=== PATIENT | male | born 1950 | race Caucasian/White ===

== ENCOUNTER 2017-10-29 15:48 | Observation (INO) ==
[2017-10-29] MEDS ORDERED: 0.9 % SODIUM CHLORIDE 1,000 ML IV ONE (16:01)
[2017-10-29] MEDS ORDERED: ASPIRIN 81 MG TAB.CHEW CHEWED ONE (16:20)
[2017-10-29 16:35] LABS: Basophils # (Auto) 0 K/mcL (0.0-0.3); Basophils % (Auto) 0.3 % (0.0-2.0); Eosinophils # (Auto) 0.1 K/mcL (0.0-0.7); Eosinophils % (Auto) 1.7 % (0.0-7.0); Granulocytes % (Auto) 70.2 % (38.0-78.0); Lymphocytes # (Auto) 1.4 K/mcL (1.5-4.8); Lymphocytes % (Auto) 19.9 % (15.5-49.0); Mean Cell Volume 94.9 fL (80.0-100.0); Mean Corpuscular HGB Conc 33.5 g/dL (31.0-36.0); Mean Corpuscular Hemoglobin 31.8 pg (26.0-34.0); Monocytes # (Auto) 0.5 K/mcL (0.1-0.9); Monocytes % (Auto) 7.9 % (1.0-12.0); Platelet Count 292 K/mcL (140-440); RBC 4.95 M/mcL (4.50-5.90); Red Cell Distribution Width 14.4 % (11.5-14.5)
--- NOTE | 2017-10-29 16:50 | XRay Report ---
HISTORY: Chest pain and shortness of breath FINDINGS: There is a small right apical pneumothorax which is roughly 10-15% volume. There is a new finding since 04/29/16. No pleural effusion is present. The lungs are clear without evidence of pneumonia or mass. The heart size, pulmonary vasculature, mediastinum and tamar are normal. Central airways appear normal. IMPRESSION: Small right apical pneumothorax Bry Negron was called with the results Interpreted and Authenticated by: Hector Conner 10/29/17
[2017-10-29 16:56] LABS: ALT/SGPT 16 U/l (0-40); Albumin 4.4 gm/dL (3.2-5.2); Albumin/Globulin Ratio 1.8 (1.0-2.3); Alkaline Phosphatase 64 U/L (39-117); Blood Urea Nitrogen 19 mg/dl (8-23)
[2017-10-29] MEDS ORDERED: HYDROcodone/APAP 5/325MG TABLET PO PRN (17:36)
[2017-10-29 17:41] LABS: Appearance,Urine CLEAR; Bacteria,Urine 0 /hpf (0); Bilirubin,Urine NEG (NEG); Color,Urine YELLOW; Glucose,Urine (UA) NEGATIVE (NEG); Leukocyte Esterase,Urine NEG /uL (NEG); Mucus,Urine FEW /hpf (0); Protein,Urine NEG (NEG); Specific Gravity,Urine 1.024 (1.000-1.035); Urine Blood NEG mg/dL (<0.03); Urine Hyaline Cast 1 /lpf (0-2); Urine RBC 1 /hpf (0-1); Urine Squamous Epithelial Cell 0 /hpf (0-4); Urine WBC < 1 /hpf (0-4)
--- NOTE | 2017-10-29 18:15 | Emergency Department Note ---
General Adult HPI - General Chief complaint: Flank Pain Stated complaint: R flank pain Time Seen by Provider: 10/29/17 15:54 Source: patient Mode of arrival: EMS Limitations: no limitations - History of Present Illness HPI Narrative: Patient is a 67-year-old male presented at the emergency Department today via ambulance after he experienced some right upper chest pain which radiated to the right lower ribs around 1500 today. He reports that he was sitting when this occurred. He has a history of COPD and reports that he was having a little bit more difficulty taking a deep breath than he normally does. He is also reporting increased pain with certain movements and deep breathing. - Related Data Home Medications Medication Instructions Recorded Confirmed Albuterol Sulfate [Ventolin] 1 puff INH Q4-6HP PRN 10/29/17 10/29/17 Levothyroxine Sodium [Synthroid] 112 mcg PO DAILY 10/29/17 10/29/17 Tamsulosin [Flomax] 0.4 mg PO HS 10/29/17 10/29/17 Previous Rx's Medication Instructions Recorded Diazepam [Valium] 5 mg PO TIDP PRN #15 tablet 07/20/16 Allergies Allergy/AdvReac Type Severity Reaction Status Date / Time Tetracycline [TETRACYCLINE] AdvReac Mild SEVERE Verified 02/05/17 08:11 HEARTBURN Past Medical History - Past Medical History Medical history: Reports: no medical history Surgical history ED: Reports: herniorrhaphy, orthopedic, other (Right shoulder) - Social History smoking status: Former smoker Physical Exam Limitations: no limitations General appearance: alert, in no apparent distress ENT: normal oropharynx, mucous membranes moist Neck: Present: normal inspection, full ROM, trachea midline. Absent: lymphadenopathy Chest: Present: normal inspection, symmetric chest wall rise. Absent: tenderness Respiratory: Present: other (lung sounds clear to auscultate with slightly diminished base in the right lower lobe and diminished right upper lobe). Absent: respiratory distress, accessory muscle use Cardiovascular: Present: regular rate, normal rhythm, +S1, +S2. Absent: systolic murmur, diastolic murmur Abdominal: Present: soft, normal bowel sounds. Absent: distention, tenderness Extremities: Present: normal inspection, full ROM, normal capillary refill. Absent: tenderness Back: Present: normal inspection. Absent: tenderness, CVA tenderness (R), CVA tenderness (L) Neurological: Present: alert, oriented X3 Psychiatric: Present: normal affect, normal mood Skin: Present: warm, dry, intact, normal color Course Vital Signs Temperature 97.4 F 10/29/17 15:52 Pulse Rate 73 10/29/17 15:52 Respiratory Rate 20 10/29/17 15:52 Blood Pressure 141/81 10/29/17 15:52 Pulse Oximetry (%) 90 10/29/17 15:52 Temperature 97.4 F 10/29/17 18:21 Pulse Rate 61 10/29/17 18:21 Respiratory Rate 16 10/29/17 18:21 Blood Pressure 115/79 10/29/17 18:21 Pulse Oximetry (%) 93 10/29/17 19:30 Medical Decision Making - MDM Narrative Medical decision making narrative: Patient's pain was controlled here in the emergency department and his vital signs are stable. Phone call was received from radiologist which the Two-view chest x-ray shows small right apical pneumothorax which is roughly 10-15% volume. Patient was stable maintaining O2 saturations around 92% on room air. His labs are remarkably well. Phone call was placed and report given to Dr. Franklin Peralta. Patient will be admitted for observation incentive spirometer every 2 hours, O2 2 L via nasal cannula, he'll be given pain medication, saline lock IV, and chest x-ray in the morning. Dr. Franklin Peralta will follow up with patient. - Lab Data Lab results reviewed: Yes I reviewed the patient's lab results. Result diagrams: 10/29/17 16:13 10/29/17 16:13 Lab Results 10/29/17 10/29/17 10/29/17 Range/Units 16:12 16:13 16:13 WBC 6.8 (4.5-11.0) K/mcL RBC 4.95 (4.50-5.90) M/mcL Hgb 15.8 (13.5-16.5) g/dL Hct 47.0 (41.0-55.0) % MCV 94.9 (80.0-100.0) fL MCH 31.8 (26.0-34.0) pg MCHC 33.5 (31.0-36.0) g/dL RDW 14.4 (11.5-14.5) % Plt Count 292 (140-440) K/mcL MPV 6.8 L (7.4-10.4) fL Gran % 70.2 (38.0-78.0) % Lymph % (Auto) 19.9 (15.5-49.0) % [place] % (Auto) 7.9 (1.0-12.0) % Eos % (Auto) 1.7 (0.0-7.0) % Baso % (Auto) 0.3 (0.0-2.0) % Gran # 4.8 (1.8-8.0) K/mcL Lymph # (Auto) 1.4 L (1.5-4.8) K/mcL [place] # (Auto) 0.5 (0.1-0.9) K/mcL Eos # (Auto) 0.1 (0.0-0.7) K/mcL Baso # (Auto) 0 (0.0-0.3) K/mcL D-Dimer (0.00-0.40) ug/ml Sodium 141 (133-145) mmol/L Potassium 4.2 (3.3-5.1) mmol/L Chloride 102 (96-108) mmol/L Carbon Dioxide 27 (22-30) mmol/L Anion Gap 12.0 (8-16) BUN 19 (8-23) mg/dl Creatinine 1.0 (0.7-1.2) mg/dl GFR Calculation 78 Glucose 102 (70-105) mg/dL Calcium 9.4 (8.6-10.4) mg/dl Total Bilirubin 0.3 (0.0-1.0) mg/dL AST 22 (0-37) U/l ALT 16 (0-40) U/l Alkaline Phosphatase 64 (39-117) U/L Troponin T < 0.01 (0-0.03) ng/ml Total Protein 6.9 (5.9-8.4) gm/dL Albumin 4.4 (3.2-5.2) gm/dL Globulin 2.5 (2.2-3.7) gm/dL Albumin/Globulin Ratio 1.8 (1.0-2.3) Procalcitonin (<0.10) ng/mL Urine Color Urine Appearance Urine pH (5.0-9.0) Ur Specific [place] (1.000-1.035) Urine Protein (NEG) mg/dL Urine Glucose (UA) (NEG) mg/dL Urine Ketones (NEG) mg/dL Urine Occult Blood (<0.03) mg/dL Urine Nitrate (NEG) Urine Bilirubin (NEG) mg/dL Urine Urobilinogen (NEG) mg/dL Ur Leukocyte Esterase (NEG) /uL Urine RBC (0-1) /hpf Urine WBC (0-4) /hpf Ur Squamous Epith Cells (0-4) /hpf Urine Bacteria (0) /hpf Hyaline Casts (0-2) /lpf Urine Mucus (0) /hpf Ur Culture Indicated? 10/29/17 10/29/17 10/29/17 Range/Units 16:13 16:21 17:10 WBC (4.5-11.0) K/mcL RBC (4.50-5.90) M/mcL Hgb (13.5-16.5) g/dL Hct (41.0-55.0) % MCV (80.0-100.0) fL MCH (26.0-34.0) pg MCHC (31.0-36.0) g/dL RDW (11.5-14.5) % Plt Count (140-440) K/mcL MPV (7.4-10.4) fL Gran % (38.0-78.0) % Lymph % (Auto) (15.5-49.0) % [place] % (Auto) (1.0-12.0) % Eos % (Auto) (0.0-7.0) % Baso % (Auto) (0.0-2.0) % Gran # (1.8-8.0) K/mcL Lymph # (Auto) (1.5-4.8) K/mcL [place] # (Auto) (0.1-0.9) K/mcL Eos # (Auto) (0.0-0.7) K/mcL Baso # (Auto) (0.0-0.3) K/mcL D-Dimer 0.54 H (0.00-0.40) ug/ml Sodium (133-145) mmol/L Potassium (3.3-5.1) mmol/L Chloride (96-108) mmol/L Carbon Dioxide (22-30) mmol/L Anion Gap (8-16) BUN (8-23) mg/dl Creatinine (0.7-1.2) mg/dl GFR Calculation Glucose (70-105) mg/dL Calcium (8.6-10.4) mg/dl Total Bilirubin (0.0-1.0) mg/dL AST (0-37) U/l ALT (0-40) U/l Alkaline Phosphatase (39-117) U/L Troponin T (0-0.03) ng/ml Total Protein (5.9-8.4) gm/dL Albumin (3.2-5.2) gm/dL Globulin (2.2-3.7) gm/dL Albumin/Globulin Ratio (1.0-2.3) Procalcitonin < 0.05 (<0.10) ng/mL Urine Color Yellow Urine Appearance Clear Urine pH 5.0 (5.0-9.0) Ur Specific [place] 1.024 (1.000-1.035) Urine Protein Neg (NEG) mg/dL Urine Glucose (UA) Negative (NEG) mg/dL Urine Ketones Neg (NEG) mg/dL Urine Occult Blood Neg (<0.03) mg/dL Urine Nitrate Neg (NEG) Urine Bilirubin Neg (NEG) mg/dL Urine Urobilinogen 2.0 A (NEG) mg/dL Ur Leukocyte Esterase Neg (NEG) /uL Urine RBC 1 (0-1) /hpf Urine WBC < 1 (0-4) /hpf Ur Squamous Epith Cells 0 (0-4) /hpf Urine Bacteria 0 (0) /hpf Hyaline Casts 1 (0-2) /lpf Urine Mucus Few (0) /hpf Ur Culture Indicated? No - Radiology Data Radiology results reviewed: Yes I reviewed the patient's radiology results. - EKG Data EKG #1 EKG results narrative: EKG reviewed by myself and interpreted by Dr. Ibrahim. Normal sinus rhythm with slight first-degree AV block seen. No acute abnormalities. Disposition Pt seen by MINE [employer]INEER[employer] SUPERVISOR/PA only: Yes Clinical Impression: Pneumothorax Disposition: Xfer As Outpt/Obs ([facility]) Condition: Fair
[2017-10-29] MEDS ORDERED: LIDOCAINE 1% 20 ML VIAL SQ ONE (18:26)
--- NOTE | 2017-10-29 19:30 | General Surg History&Physical ---
History of Present Illness Patient information: Note initiated : 10/29/17 at 7:28 pm Service Date, if different from initiated Date: [] Patient: Nikhil Campbell a 67 y/o M admitted on 10/29/17 for R flank pain. Chief Complaint: [] HPI: Mr. Campbell is a 67 year old M admitted for observation for small apical pneumothorax On the right side. The patient had acute onset of right-sided back pain about 3:00 today. He was sitting at the time.. This pain was followed by right lateral chest pain and then anterior chest. He later had difficulty taking a deep breath.. He also had pain with any movement. He was seen in the emergency room where he he has a very limited apical pneumothorax which measures between 10-15%. He feels better now and is admitted for observation.. If his pneumothorax should increase we will proceed with tube thoracostomy. If it remains stable he will be discharged home after about 36 hours if he is asymptomatic.. Review of Systems - Genitourinary change in urinary stream, difficulty urinating, urinary frequency, urinary urgency - Musculoskeletal arthralgias, back pain Past History Past medical history: Chronic obstructive lung disease Chronic bronchitis Hypothyroidism BPH Chronic low back pain Past surgical history: Left AC joint repair Left inguinal hernia repair Nasal surgery Removal of multiple skin cancers Past family history: Father of colon cancer complications H unknown Mother of lung cancer age 86 Brother of advanced squamous cell cancer from the skin Past social history: Greater than [id number] smoking history stopped 11-3 beers per day No drug use Medications and Allergies Home Medications Medication Instructions Recorded Confirmed Type Diazepam [Valium] 5 mg PO TIDP PRN #15 tablet 07/20/16 10/29/17 Rx Albuterol Sulfate [Ventolin] 1 puff INH Q4-6HP PRN 10/29/17 10/29/17 History Levothyroxine Sodium [Synthroid] 112 mcg PO DAILY 10/29/17 10/29/17 History Tamsulosin [Flomax] 0.4 mg PO HS 10/29/17 10/29/17 History Allergies Allergy/AdvReac Type Severity Reaction Status Date / Time Tetracycline [TETRACYCLINE] AdvReac Mild SEVERE Verified 02/05/17 08:11 HEARTBURN Exam Temp Pulse Resp BP Pulse Ox 97.4 F 61 16 115/79 94 10/29/17 18:21 10/29/17 18:21 10/29/17 18:21 10/29/17 18:21 10/29/17 18:21 - General physical appearance well developed, well nourished, no distress - Eyes PERRL, normal ocular movement - ENT normal pinna, normal nares, normal mucosa, no hearing loss, no congestion - Head Head exam IM: Present: atraumatic, normocephalic - Neck no masses, no bruits, trachea midline, no lymphadectomy, no venous distension - Cardiovascular Cardiovascular exam IM: Present: normal rate and rhythm, RRR, +S1, +S2. Absent : JVD, rubs, tachycardia - Respiratory normal expansion, normal respiratory effort, clear to auscultation, other (good breath sounds except at apex right lung;;; no pleural rub) - Abdomen Abdomen: Present: soft, non tender, bowel sounds Hernia: Present: none - Genitourinary Present: normal penis with no external lesions - Integumentary Present: no rash, no growths, no abnormal pigmentation - Neurologic Present: normal coordination, normal sensation - Musculoskeletal Present: normal gait, normal posture - Psychiatric Present: oriented to time, oriented to person, oriented to place, speech is normal, memory intact Assessment and Plan (1) Primary spontaneous pneumothorax Patient will be monitored and will have follow-up chest x-ray in the morning.. If the pneumothorax increases he will get either a Pleurx tube or standard [place] chest tube based on the size of the pneumothorax. If he remains stable he will be discharged home with follow-up as An outpatient. Status: Acute (2) Chronic obstructive lung disease Status: Acute
[2017-10-29] MEDS ORDERED: ACETAMINOPHEN 1,000 MG/100 ML BOTTLE IV PRN (19:36)
[2017-10-29] MEDS ORDERED: HYDROmorphone 2 MG/ML VIAL IV PRN (19:36)
[2017-10-30] MEDS: 0.9 % SODIUM CHLORIDE 10 ML SYRINGE IV SCH ×3 (04:58→21:21)
--- NOTE | 2017-10-30 08:47 | XRay Report ---
HISTORY: Follow-up right-sided pneumothorax FINDINGS: There is an enlarging right-sided pneumothorax. There is free air at the apex and at the right costophrenic sulcus. This has increased in volume since yesterday. This is now roughly 30% in volume. Bands of atelectasis are developing laterally in the right lung base. No pleural fluid is seen. The left lung is clear. No mediastinal shift is present. The heart size is normal. IMPRESSION: Enlarging right-sided pneumothorax Interpreted and Authenticated by: Hector Conner 10/30/17
--- NOTE | 2017-10-30 11:12 | XRay Report ---
HISTORY: Enlarging spontaneous pneumothorax Technique: The procedure risks were explained and the patient consented. The skin over the right upper chest wall was prepped with ChloraPrep and then anesthetized with 1% lidocaine. A small incision was made. Using trocar technique a Cortes chest tube was inserted. 1 L of air was evacuated from the pleural space. The catheter was secured to the skin surface with suture. The catheter was then connected to a one-way valve which was taped to the skin surface. He tolerated the procedure well without complication. 17 seconds of fluoroscopy time was used. IMPRESSION: Successful placement of a small-caliber chest tube into the right upper thorax, with near complete evacuation of the air from the pleural space Interpreted and Authenticated by: Hector Conner 10/30/17
--- NOTE | 2017-10-30 11:13 | XRay Report ---
HISTORY: Post right-sided chest tube insertion for pneumothorax FINDINGS: There is a tiny residual right apical pneumothorax which is less than 5% volume. The pigtail Cortes chest tube is located laterally in the right upper thorax. There are bands of discoid atelectasis above the right diaphragm and there is minor blunting of the right costophrenic sulcus. Left lung is clear. The heart size is normal. IMPRESSION: Near complete evacuation of the right-sided pneumothorax following chest tube insertion Interpreted and Authenticated by: Hector Conner 10/30/17
--- NOTE | 2017-10-30 14:41 | General Surgery Progress Note ---
Subjective Patient reports: still having pain, tolerating a regular diet, flatus, bowel movement, shortness of breath, afebrile Narrative: Note initiated : 10/30/17 at 2:39 pm Service Date, if different from initiated Date: [] Patient: Nikhil Campbell 67 y/o M admitted on 10/29/17 for R flank pain. Chief Complaint: [patient has been stable overnight but his chest x-ray showed increase in the apical pneumothorax and also development of an area at the right base. Discussed with Dr. Conner about placing a Pleurx catheter. This was placed and he was attached to a Heimlich valve.. He now has a residual of about 5% at the apex.. We'll keep the patient overnight and get follow-up x-ray in the morning..] Objective Temp Pulse Resp BP Pulse Ox 98.2 F 56 L 20 128/80 93 10/30/17 11:12 10/30/17 12:52 10/30/17 12:52 10/30/17 11:12 10/30/17 12:52 - Additional Data Intake & Output - Last 24 hours: Intake & Output 10/28/17 10/29/17 10/30/17 10/31/17 05:59 05:59 05:59 05:59 Intake Total 1237 / 1237 200 / 200 Output Total 500 / 500 1025 / 1025 Balance 737 / 737 -825 / -825 Weight 165 lb - General physical appearance moderate distress, moderate pain - Eyes PERRL, normal ocular movement - ENT normal pinna, normal nares, normal mucosa, no hearing loss, no congestion - Neck no masses, no bruits, trachea midline, no venous distension - Respiratory other (good clear breath sounds bilaterally; no pleural rub; no rhonchi or wheezes) - Cardiovascular Cardiovascular exam: Present: normal rate and rhythm, RRR, +S1, +S2. Absent: JVD, tachycardia - Abdomen non tender, bowel sounds (present), surgical scars (none), masses (none) - Integumentary no rash, no growths, no abnormal pigmentation - Neurologic normal coordination, normal sensation - Musculoskeletal normal gait, normal posture - Psychiatric oriented to time, oriented to person, oriented to place, speech is normal, memory intact - Labs 10/29/17 16:13 10/29/17 16:13 Diabetes panel 10/29/17 Range/Units 16:13 Sodium 141 (133-145) mmol/L Potassium 4.2 (3.3-5.1) mmol/L Chloride 102 (96-108) mmol/L Carbon Dioxide 27 (22-30) mmol/L BUN 19 (8-23) mg/dl Creatinine 1.0 (0.7-1.2) mg/dl Glucose 102 (70-105) mg/dL Calcium 9.4 (8.6-10.4) mg/dl AST 22 (0-37) U/l ALT 16 (0-40) U/l Alkaline Phosphatase 64 (39-117) U/L Total Protein 6.9 (5.9-8.4) gm/dL Albumin 4.4 (3.2-5.2) gm/dL Calcium panel 10/29/17 Range/Units 16:13 Calcium 9.4 (8.6-10.4) mg/dl Albumin 4.4 (3.2-5.2) gm/dL Pituitary panel 10/29/17 Range/Units 16:13 Sodium 141 (133-145) mmol/L Potassium 4.2 (3.3-5.1) mmol/L Chloride 102 (96-108) mmol/L Carbon Dioxide 27 (22-30) mmol/L BUN 19 (8-23) mg/dl Creatinine 1.0 (0.7-1.2) mg/dl Glucose 102 (70-105) mg/dL Calcium 9.4 (8.6-10.4) mg/dl Adrenal panel 10/29/17 Range/Units 16:13 Sodium 141 (133-145) mmol/L Potassium 4.2 (3.3-5.1) mmol/L Chloride 102 (96-108) mmol/L Carbon Dioxide 27 (22-30) mmol/L BUN 19 (8-23) mg/dl Creatinine 1.0 (0.7-1.2) mg/dl Glucose 102 (70-105) mg/dL Calcium 9.4 (8.6-10.4) mg/dl Total Bilirubin 0.3 (0.0-1.0) mg/dL AST 22 (0-37) U/l ALT 16 (0-40) U/l Alkaline Phosphatase 64 (39-117) U/L Total Protein 6.9 (5.9-8.4) gm/dL Albumin 4.4 (3.2-5.2) gm/dL Assessment and Plan (1) Primary spontaneous pneumothorax Status: Acute Assessment and plan: Status post placement of Pleurx catheter for evacuation of pneumothorax; clinically improved Current Visit: Yes (2) Chronic obstructive lung disease Status: Acute Assessment and plan: Oxygenation is stable Current Visit: Yes - Time Spent With Patient Total time spent is greater than 50% in coordination of care (as documented) at patient's floor/unit and/or counseling patient:
[2017-10-30] MEDS ORDERED: ALBUTEROL SULFATE 1 PUFF INHALER INH PRN (14:43)
[2017-10-30] MEDS ORDERED: DIAZEPAM 5 MG TABLET PO PRN (14:43)
[2017-10-30] MEDS: TAMSULOSIN 0.4 MG CAPSULE PO SCH (21:06)
[2017-10-30] MEDS ORDERED: oxyCODONE/APAP 10/325MG TABLET PO ONE (21:10)
[2017-10-31] MEDS: 0.9 % SODIUM CHLORIDE 10 ML SYRINGE IV SCH ×3 (06:11→22:01)
[2017-10-31] MEDS: LEVOTHYROXINE SODIUM 112 MCG TABLET PO SCH (06:42)
--- NOTE | 2017-10-31 14:25 | General Surgery Progress Note ---
Subjective Patient reports: still having pain, shortness of breath, afebrile Narrative: Note initiated : 10/31/17 at 2:23 pm Service Date, if different from initiated Date: [] Patient: Nikhil Campbell 67 y/o M admitted on 10/29/17 for R flank pain. Chief Complaint: [patient is having chest wall pain and the catheter site. His O2 sats are about 87% on room air. Chest x-ray shows resolution of pneumothorax.] Objective Temp Pulse Resp BP Pulse Ox 97.5 F 54 L 18 104/64 91 10/31/17 11:30 10/31/17 11:30 10/31/17 11:30 10/31/17 11:30 10/31/17 13:24 - Additional Data Intake & Output - Last 24 hours: Intake & Output 10/29/17 10/30/17 10/31/17 11/01/17 05:59 05:59 05:59 05:59 Intake Total 1237 / 1237 725 / 725 Output Total 500 / 500 2550 / 2550 725 / 725 Balance 737 / 737 -1825 / -1825 -725 / -725 Weight 165 lb 166 lb 6.4 oz - General physical appearance well developed, well nourished, moderate distress, moderate pain - Eyes PERRL, normal ocular movement - ENT normal pinna, normal nares, normal mucosa, no hearing loss, no congestion - Neck no masses, no bruits, trachea midline, no lymphadectomy, no venous distension - Respiratory other (bilateral expiratory wheezes with scattered rhonchi) - Cardiovascular Cardiovascular exam: Present: normal rate and rhythm, RRR, +S1, +S2. Absent: JVD, tachycardia - Abdomen non tender, bowel sounds (present), surgical scars (none), masses (none) - Integumentary no rash, no growths, no abnormal pigmentation - Neurologic normal coordination, normal sensation - Musculoskeletal normal gait, normal posture - Psychiatric oriented to time, oriented to person, oriented to place, speech is normal, memory intact - Labs 10/29/17 16:13 10/29/17 16:13 Assessment and Plan (1) Primary spontaneous pneumothorax Status: Acute Assessment and plan: Status post placement of Pleurx catheter for evacuation of pneumothorax; clinically improved Current Visit: Yes (2) Chronic obstructive lung disease Status: Acute Assessment and plan: Oxygenation is stable We'll add DuoNeb every 6 hours Current Visit: Yes - Time Spent With Patient Total time spent is greater than 50% in coordination of care (as documented) at patient's floor/unit and/or counseling patient:
[2017-10-31] MEDS: IPRATROPIUM/ALBUTEROL 3 ML AMPUL.NEB NEB SCH ×2 (14:58→18:30)
[2017-10-31] MEDS: oxyCODONE/APAP 10/325MG TABLET PO PRN ×2 (15:28→19:49)
--- NOTE | 2017-10-31 15:28 | XRay Report ---
HISTORY: Follow-up right-sided pneumothorax following chest tube insertion FINDINGS: There is a residual small right apical pneumothorax which is roughly 5% volume. The chest tube remains positioned laterally in the right upper thorax adjacent to the pneumothorax. No mediastinal shift is present. The diaphragms are outside the field of view. Visualized lungs are clear. The heart size is normal. IMPRESSION: Persistent small right apical pneumothorax. Follow-up chest x-ray on 11/01/17 is suggested. Interpreted and Authenticated by: Hector Conner 10/31/17
[2017-10-31] MEDS ORDERED: FLEETS ADULT ENEMA PR PRN (16:20)
[2017-10-31] MEDS ORDERED: MAGNESIUM HYDROXIDE 30 ML ORAL.SUSP PO PRN (16:20)
[2017-10-31] MEDS ORDERED: BISACODYL 10 MG SUPP.RECT PR PRN (16:20)
[2017-10-31] MEDS ORDERED: MAGNESIUM HYDROXIDE 30 ML ORAL.SUSP ONE (17:22)
[2017-10-31] MEDS: DOCUSATE SODIUM 100 MG CAPSULE PO SCH (22:00)
[2017-10-31] MEDS: TAMSULOSIN 0.4 MG CAPSULE PO SCH (22:00)
[2017-11-01] MEDS: IPRATROPIUM/ALBUTEROL 3 ML AMPUL.NEB NEB SCH ×2 (00:54→07:50)
[2017-11-01] MEDS: oxyCODONE/APAP 10/325MG TABLET PO PRN ×2 (01:00→09:01)
[2017-11-01] MEDS: 0.9 % SODIUM CHLORIDE 10 ML SYRINGE IV SCH (04:26)
[2017-11-01] MEDS: LEVOTHYROXINE SODIUM 112 MCG TABLET PO SCH (07:01)
[2017-11-01] MEDS: DOCUSATE SODIUM 100 MG CAPSULE PO SCH (08:30)
--- NOTE | 2017-11-01 08:37 | XRay Report ---
HISTORY: Follow-up spontaneous right-sided pneumothorax FINDINGS: There is a tiny residual right apical pneumothorax. This has nearly but not completely resolved since yesterday. Chest tube remains well-positioned laterally in the right upper thorax. There is minor parenchymal scarring right upper lobe and medially in left lower lobe. The heart size, pulmonary vasculature, mediastinum, tamar and pleura are normal. IMPRESSION: Near complete resolution of the right apical pneumothorax. Follow-up chest x-ray tomorrow is recommended. If the patient is clinically stable, he could be discharged and return as an outpatient for follow-up. Interpreted and Authenticated by: Hector Conner 11/01/17
--- NOTE | 2017-11-01 12:19 | Discharge Summary ---
Providers - Providers Patient information: Note initiated : 11/01/17 at 12:16 pm Service Date, if different from initiated Date: [] Patient: Nikhil Campbell 67 y/o M admitted on 10/29/17 for R flank pain. Chief Complaint: [] Date of admission: 10/29/17 Discharge date: 11/01/17 Attending physician: Maria Victoria Peralta Hospitalization Hospital course: 67-year-old male who presents with a one-day history of right-sided chest pain with finding of right apical pneumothorax. His pneumothorax was about 10% and he was monitored overnight without a chest tube. The next morning the pneumothorax was about 20-25%. A Pleurx percutaneous tube with Heimlich valve was placed. The follow-up x-rays show a residual apical pneumothorax of about 5 %. The patient is asymptomatic except for chest pain. He will be discharged home and have follow-up x-rays as an outpatient until his pneumothorax has resolved.. The tube within the discontinued by the radiologist who inserted. The patient did not have any other problems during this hospitalization. He does have COPD and has mild hypoxemia however his O2 sats are 92-94% on room air at this time. Discharge diagnosis: sspontaneous pneumothorax right chest Secondary discharge diagnosis: Chronic obstructive lung disease Reason for admission: pneumothorax and right-sided chest pain Procedures: Percutaneous closed tube thoracostomy by radiology Pertinent studies/significant findings: None Complications: None Exam Temp Pulse Resp BP Pulse Ox 98 F 64 20 95/60 90 11/01/17 11:55 11/01/17 10:38 11/01/17 11:55 11/01/17 11:55 11/01/17 11:55 - General physical appearance well developed, well nourished, no distress - Eyes PERRL, normal ocular movement - ENT normal pinna, normal nares, normal mucosa, no hearing loss, no congestion - Head Head exam IM: Present: atraumatic, normocephalic - Neck no masses, no bruits, trachea midline, no lymphadectomy, no venous distension - Cardiovascular Cardiovascular exam IM: Present: normal rate and rhythm - Respiratory normal expansion, normal respiratory effort, clear to percussion, clear to auscultation - Abdomen Abdomen: Present: soft, non tender, bowel sounds Hernia: Present: none - Integumentary Present: no rash, no growths, no abnormal pigmentation - Neurologic Present: normal coordination, normal sensation - Musculoskeletal Present: normal gait, normal posture - Psychiatric Present: oriented to time, oriented to person, oriented to place, speech is normal, memory intact Discharge Plan - Patient/Caregiver Discharge Instructions Activity: increase activity as tolerated Diet: Regular Diet Additional Instructions: Follow-up chest x-ray had been tomorrow. The radiologist will decide when the catheter needs to be removed. Prescriptions: oxyCODONE/APAP [Percocet 10-325Mg] 1 tab PO Q4HP PRN #30 tab PRN Reason: Pain Level 3-6 - Follow up Plan Follow up with: Arturo Martinez MD [Primary Care Provider] - Disposition: Home, Self-Care Prognosis: Good Rehab Potential: Good I certify that the patient requires SNF services.: No Overall status at discharge: patient is not back to baseline Pending Studies Resuscitation Status Full Code Diet Low Sodium Diet (2gm) Start Irene Oct 29 1737 Albuterol Sulfate (Ventolin) 2 puff INH Q4-6HP PRN PRN Reason: Shortness Of Breath Last Admin: 11/01/17 08:08 Dose: 2 puff Albuterol/Ipratropium (Duoneb) 3 ml NEB Q6HRT [facility] Last Admin: 11/01/17 07:50 Dose: 3 ml Admin: 11/01/17 00:54 Dose: 3 ml Admin: 10/31/17 18:30 Dose: 3 ml Admin: 10/31/17 14:58 Dose: 3 ml Diazepam (Valium) 5 mg PO TIDP PRN PRN Reason: Muscle Spasm Last Admin: 10/30/17 21:07 Dose: 5 mg Docusate Sodium (Colace) 100 mg PO BID [facility] Last Admin: 11/01/17 08:30 Dose: 100 mg Admin: 10/31/17 22:00 Dose: 100 mg Levothyroxine Sodium (Synthroid) 112 mcg PO ACB [facility] Last Admin: 11/01/17 07:01 Dose: 112 mcg Admin: 10/31/17 06:42 Dose: 112 mcg Magnesium Hydroxide (Milk Of Magnesia) 30 ml PO DAILYP PRN PRN Reason: Constipation Last Admin: 11/01/17 07:01 Dose: 30 ml Oxycodone/Acetaminophen (Percocet 10-325mg) 1 tab PO Q4HP PRN PRN Reason: PAIN LEVEL 3-6 Last Admin: 11/01/17 09:01 Dose: 1 tab Admin: 11/01/17 01:00 Dose: 1 tab Admin: 10/31/17 19:49 Dose: 1 tab Admin: 10/31/17 15:28 Dose: 1 tab Sodium Chloride (Saline Flush) 10 ml IV Q8 DEON Last Admin: 11/01/17 04:26 Dose: 10 ml Admin: 10/31/17 22:01 Dose: 10 ml Admin: 10/31/17 14:45 Dose: 10 ml Admin: 10/31/17 06:11 Dose: 10 ml Admin: 10/30/17 21:21 Dose: 10 ml Admin: 10/30/17 13:24 Dose: 10 ml Admin: 10/30/17 04:58 Dose: 10 ml Tamsulosin HCl (Flomax) 0.4 mg PO HS DEON Last Admin: 10/31/17 22:00 Dose: 0.4 mg Admin: 10/30/17 21:06 Dose: 0.4 mg Shift Summary 11/01/17 05:21 Shift Summary by Lucero Aleman on 2L NC at NOC. A&Ox4. Medicated with 10-325 PO Percocet x 2 this shift for right chest pain r/t chest tube and to encourage ambulation/deep breathing. Chest tube dressing C/D/I. Small amount of serosanguineous drainage in chest tube extension tubing. No SOB or increased difficulty breathing. Up with SBA to bathroom. IV to left hand SL. Initialized on 11/01/17 05:21 - END OF NOTE
== END 2017-11-01 13:04 | disposition home or self-care (01) ==
LOC: MEDSUR 15:48 → ED 15:48 → MEDSUR 18:23
PROVIDERS: ADMIT Family Medicine Adult Medicine; ATTEND Family Medicine Adult Medicine

== ENCOUNTER 2019-10-17 17:35 | Observation (INO) ==
[2019-10-17] MEDS ORDERED: IOPAMIDOL 100 ML BOTTLE IV ONE (17:36)
--- NOTE | 2019-10-17 17:59 | Emergency Department Note ---
Neuro HPI General Chief Complaint: Neuro Symptoms/Deficit Stated Complaint: vision loss Time Seen by Provider: 10/17/19 17:54 Source: patient Mode of arrival: ambulatory Limitations: no limitations History of Present Illness HPI Narrative: Narrative: This patient has had 2 episodes of right amaurosis fugax this afternoon. 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 He is asymptomatic at the current time. He has never had a stroke or heart attack. Has had no other neurologic symptoms. Related Data Home Medications Medication Instructions Recorded Confirmed albuterol sulfate 2 puff INH Q4-6HP PRN 10/29/17 10/17/19 levothyroxine 112 mcg PO DAILY 10/29/17 10/17/19 diazepam 5 mg tablet 5 mg PO TID PRN tab 08/23/19 10/17/19 oxybutynin chloride 5 mg 5 mg PO QDAY tab 08/23/19 10/17/19 tablet,extended release 24 hr Multi Vitamin 1 tab PO DAILY 10/17/19 10/17/19 Vitamin D3 2,000 mg PO DAILY 10/17/19 10/17/19 Previous Rx's Medication Instructions Recorded forfhwddosbjfyg-vqqyinolbljfwbi-IP 10 ml PO Q8H PRN #120 ml 04/21/19 2 mg-30 mg-10 mg/5 mL oral syrup fluticasone propionate 50 2 spray INTRANASAL QDAY #15.8 ml 04/21/19 mcg/actuation nasal spray,suspension tiotropium 2.5 mcg-olodaterol 2.5 2 puff INHALATION Q24H #4 g 09/21/19 mcg/actuation mist for inhalation tamsulosin 0.4 mg capsule 0.8 mg PO QHS #180 cap 09/22/19 Allergies Allergy/AdvReac Type Severity Reaction Status Date / Time Influenza Virus Vaccines Allergy Severe pneumonia Verified 10/17/19 18:29 Pneumococcal Vaccine Allergy Intermediate Redness of Verified 10/17/19 18:29 Skin tetracycline [TETRACYCLINE] AdvReac Mild SEVERE Verified 10/17/19 18:29 HEARTBURN Review of Systems ROS ROS Narrative: Narrative: All systems ED: reviewed and negative except as stated. PFSH Narrative Patient History Narrative: Narrative: Medical/Surgical/Family History All Active Problems (Updated 10/17/19 @ 20:39 by Javi Blandon MD) Brain TIA (Acute) Amaurosis fugax (Acute) History of colonoscopy (Chronic ~2019) Colon polyps (Chronic) Collapsed lung (Chronic ~2018) Joint pain (Chronic) Skin cancer (Chronic) Family history of malignant neoplasm of digestive organs (Chronic) Family history of ischemic heart disease (Chronic) Urinary retention (Chronic) Maxillary sinusitis, acute (Chronic) Upper respiratory infection (Chronic) Persistent cough for 3 weeks or longer (Chronic) Encounter for general adult medical examination with abnormal findings (Chronic) Hx of measles (Chronic) Hay fever (Chronic) Hypertension (Chronic) Constipation (Chronic) Allergy to vaccine (Chronic) Benign prostatic hyperplasia (Chronic) Hypothyroidism (Chronic) Low back pain (Chronic) Other obstructive and reflux uropathy (Chronic) Muscle spasm of back (Chronic) Contusion of back (Chronic) Sinusitis (Chronic) Pneumothorax (Chronic) Primary spontaneous pneumothorax (Chronic) Chronic obstructive lung disease (Chronic) Sinusitis, acute (Chronic) Medical History (Updated 10/17/19 @ 20:39 by Javi Blandon MD) Allergy to vaccine (Chronic) Benign prostatic hyperplasia (Chronic) Chronic obstructive lung disease (Chronic) Collapsed lung (Chronic ~2018) Colon polyps (Chronic) Constipation (Chronic) Contusion of back (Chronic) Encounter for general adult medical examination with abnormal findings (Chronic) Family history of ischemic heart disease (Chronic) Family history of malignant neoplasm of digestive organs (Chronic) Hay fever (Chronic) Hx of measles (Chronic) Hypertension (Chronic) Hypothyroidism (Chronic) Joint pain (Chronic) Low back pain (Chronic) Maxillary sinusitis, acute (Chronic) Muscle spasm of back (Chronic) Other obstructive and reflux uropathy (Chronic) Persistent cough for 3 weeks or longer (Chronic) Pneumothorax (Chronic) Primary spontaneous pneumothorax (Chronic) Sinusitis (Chronic) Sinusitis, acute (Chronic) Skin cancer (Chronic) Upper respiratory infection (Chronic) Urinary retention (Chronic) Surgical History (Updated 09/14/19 @ 15:11 by Beryl Mayfield) History of colonoscopy (Chronic ~2019) 08/23/2004, 11/28/2010, 12/20/2013, 01/02/2017 - Dr. Ott History of hernia surgery (Chronic ~2009) History of sinus surgery (Chronic ~1989) S/P rotator cuff repair (Chronic 1978) Family History Father Colon cancer Mother Thyroid disease Grandfather Cancer Maternal Family history of ischemic heart disease Maternal Brother Skin cancer Grandmother Stroke Maternal Other Family history of malignant neoplasm of digestive organs Social History Smoking Status: Former smoker Alcohol Intake Frequency: 0-2 drinks per day Substance Use: does not use Exam Narrative Narrative: Narrative: General Limitations: no limitations Head Head: atraumatic, normocephalic and normal inspection Eye Eye: Present EOMI and mydriasis (dilation); Absent scleral icterus and conjunctival injection ENT ENT: Present normal exam Neck Neck: Present normal inspection and other (Without carotid bruit) Chest Chest: Present normal inspection, symmetric chest wall rise and tenderness Respiratory Respiratory: Present normal lung sounds bilaterally; Absent respiratory distress, rales/crackles and wheezes Cardiovascular Cardiovascular: Present regular rate, normal rhythm and normal heart sounds Adbominal Abdominal: Present soft; Absent distention and tenderness Neurological Neurological: Present alert Expanded Neurological Speech: Present fluid speech CRANIAL NERVES: facial palsy (VII): Normal Motor strength - LUE: 5/5 Motor strength - RUE: 5/5 Psychiatric Psychiatric: Present normal affect Skin Skin: Present warm and dry; Absent diaphoresis Course Vital Signs Vital signs: Vital Signs Temperature 97.0 F 10/17/19 17:35 Pulse Rate 61 10/17/19 17:35 Respiratory Rate 16 10/17/19 17:35 Blood Pressure 142/76 10/17/19 17:35 Pulse Oximetry (%) 93 10/17/19 17:35 Temperature 97.0 F 10/17/19 17:35 Pulse Rate 60 10/17/19 19:39 Respiratory Rate 14 10/17/19 19:32 Blood Pressure 128/82 10/17/19 19:31 Pulse Oximetry (%) 96 10/17/19 19:39 [facility] MDM Narrative Medical decision making narrative: Narrative: This patient remained asymptomatic in the emergency room. CTA of head and neck showed wide open arteries including both retinal arteries. However he did have some diffuse plaquing in his arteries. We will treat this as a TIA and admit him for TIA work-up. I have given him 324 mg of aspirin and 40 mg of Lipitor. I discussed the case with Dr. Hdez and he will be admitted to the hospitalist service. Lab Data Lab results reviewed: Yes I reviewed the patient's lab results. Result diagrams: 10/17/19 18:05 10/17/19 18:05 Labs: Lab Results 10/17/19 10/17/19 10/17/19 Range/Units 18:05 18:05 18:05 WBC 5.0 (4.50-11.00) K/mcL RBC 4.35 L (4.63-6.08) M/mcL Hgb 13.9 (13.7-17.5) g/dL Hct 41.9 (40.1-51.0) % MCV 96.3 (80.0-100.0) fL MCH 32.0 (26.0-34.0) pg MCHC 33.2 (31.0-36.0) g/dL RDW 14.0 (11.5-14.5) % Plt Count 240 (140-440) K/mcL MPV 8.3 (7.4-10.4) fL Gran % 56.7 (38.0-78.0) % Lymph % (Auto) 32.3 (15.5-49.0) % [place] % (Auto) 8.4 (1.0-12.0) % Eos % (Auto) 2.4 (0.0-7.0) % Baso % (Auto) 0.2 (0.0-2.0) % Gran # 2.84 (1.80-8.00) K/mcL Lymph # (Auto) 1.62 (1.50-4.80) K/mcL [place] # (Auto) 0.42 (0.10-0.90) K/mcL Eos # (Auto) 0.12 (0.00-0.70) K/mcL Baso # (Auto) 0.01 (0.00-0.30) K/mcL PT 14.2 (11.9-14.5) sec INR 1.1 (0.9-1.1) Sodium 139 (133-145) mmol/L Potassium 3.9 (3.3-5.1) mmol/L Chloride 103 (96-108) mmol/L Carbon Dioxide 25 (22-30) mmol/L Anion Gap 11.0 (8-16) BUN 13 (8-23) mg/dl Creatinine 1.0 (0.7-1.2) mg/dl POC Creatinine 1.0 (0.7-1.2) mg/dl GFR Calculation 77 Glucose 78 (70-105) mg/dL Calcium 8.8 (8.6-10.4) mg/dl Total Bilirubin 0.4 (0.0-1.0) mg/dL AST 19 (0-37) U/l ALT 13 (0-40) U/l Alkaline Phosphatase 62 (39-117) U/L Troponin T (0-0.03) ng/ml Total Protein 5.8 L (5.9-8.4) gm/dL Albumin 3.9 (3.2-5.2) gm/dL Globulin 1.9 L (2.2-3.7) gm/dL Albumin/Globulin Ratio 2.1 (1.0-2.3) // Range/Units 18:05 WBC (4.50-11.00) K/mcL RBC (4.63-6.08) M/mcL Hgb (13.7-17.5) g/dL Hct (40.1-51.0) % MCV (80.0-100.0) fL MCH (26.0-34.0) pg MCHC (31.0-36.0) g/dL RDW (11.5-14.5) % Plt Count (140-440) K/mcL MPV (7.4-10.4) fL Gran % (38.0-78.0) % Lymph % (Auto) (15.5-49.0) % [place] % (Auto) (1.0-12.0) % Eos % (Auto) (0.0-7.0) % Baso % (Auto) (0.0-2.0) % Gran # (1.80-8.00) K/mcL Lymph # (Auto) (1.50-4.80) K/mcL [place] # (Auto) (0.10-0.90) K/mcL Eos # (Auto) (0.00-0.70) K/mcL Baso # (Auto) (0.00-0.30) K/mcL PT (11.9-14.5) sec INR (0.9-1.1) Sodium (133-145) mmol/L Potassium (3.3-5.1) mmol/L Chloride (96-108) mmol/L Carbon Dioxide (22-30) mmol/L Anion Gap (8-16) BUN (8-23) mg/dl Creatinine (0.7-1.2) mg/dl POC Creatinine (0.7-1.2) mg/dl GFR Calculation Glucose (70-105) mg/dL Calcium (8.6-10.4) mg/dl Total Bilirubin (0.0-1.0) mg/dL AST (0-37) U/l ALT (0-40) U/l Alkaline Phosphatase (39-117) U/L Troponin T < 0.01 (0-0.03) ng/ml Total Protein (5.9-8.4) gm/dL Albumin (3.2-5.2) gm/dL Globulin (2.2-3.7) gm/dL Albumin/Globulin Ratio (1.0-2.3) Radiology Data Radiology results reviewed: Yes I reviewed the patient's radiology results. Discharge Plan Patient/Caregiver Discharge Instructions Pt seen by CONFIGURATION MANAGEMENT ARCHITECT/PA only: No Clinical Impression: Brain TIA, Amaurosis fugax Patient Disposition: Xfer As Inpt ([facility]) Follow up with: Jae Donis MD [Primary Care Provider] - Prescriptions: No Action Stiolto Respimat 2.5-2.5 mcg/actuation mist 2 puff INHALATION Q24H Qty: 4 RF: 1 tamsulosin [Flomax] 0.4 mg capsule 0.8 mg PO QHS Qty: 180 RF: 0 oxybutynin chloride 5 mg tablet extended release 24hr 5 mg PO QDAY RF: 0 diazepam 5 mg tablet 5 mg PO TID PRN (Reason: Pain, Severe) RF: 0 fluticasone propionate [Flonase Allergy Relief] 50 mcg/actuation spray,suspension 2 spray INTRANASAL QDAY Qty: 15.8 RF: 0 hjdfefzzpesnzaa-kvsgakygc-EU [Bromfed DM] 2-30-10 mg/5 mL syrup 10 ml PO Q8H PRN (Reason: cold symptoms) Qty: 120 RF: 0 levothyroxine 112 MCG tablet 112 mcg PO DAILY RF: 0 albuterol sulfate 1 PUFF inhaler 2 puff INH Q4-6HP PRN (Reason: Shortness Of Breath) RF: 0 Multi Vitamin 1 tab tablet 1 tab PO DAILY RF: 0 Vitamin D3 2,000 tab capsule 2,000 mg PO DAILY RF: 0
[2019-10-17] MEDS ORDERED: ASPIRIN 81 MG TAB.CHEW CHEWED ONE (18:25)
[2019-10-17 18:47] LABS: Basophils # (Auto) 0.01 K/mcL (0.00-0.30); Basophils % (Auto) 0.2 % (0.0-2.0); Eosinophils # (Auto) 0.12 K/mcL (0.00-0.70); Eosinophils % (Auto) 2.4 % (0.0-7.0); Granulocytes % (Auto) 56.7 % (38.0-78.0); Hematocrit 41.9 % (40.1-51.0); Hemoglobin 13.9 g/dL (13.7-17.5); Lymphocytes # (Auto) 1.62 K/mcL (1.50-4.80); Lymphocytes % (Auto) 32.3 % (15.5-49.0); Mean Cell Volume 96.3 fL (80.0-100.0); Mean Corpuscular HGB Conc 33.2 g/dL (31.0-36.0); Mean Platelet Volume 8.3 fL (7.4-10.4); Monocytes # (Auto) 0.42 K/mcL (0.10-0.90); Monocytes % (Auto) 8.4 % (1.0-12.0); Platelet Count 240 K/mcL (140-440); RBC 4.35 M/mcL (4.63-6.08)
--- NOTE | 2019-10-17 18:49 | Cat Scan Report ---
CLINICAL INFORMATION: Right amaurosis fugax COMPARISON: 03/08/2018 TECHNIQUE: 2.5 mm helical slices were obtained in the skull base to vertex. Following reconstruction, axial reformatted images were reviewed at bone and parenchymal windows. The exam was performed using radiation dose optimization techniques including, but not limited to, automated exposure control, adjustment of the mA and/or kV according to patient size and use of iterative reconstruction technique. FINDINGS: The ventricles, sulci, fissures, and cisterns are normal in size and configuration. No extra-axial fluid collections are identified. The cerebrum, brainstem and cerebellum are unremarkable. There is no evidence of hemorrhage, mass effect, or edema. Bone windows show no osseous abnormality. IMPRESSION: Normal head CT without contrast. Interpreted and Authenticated by: Adrian Kaba 10/17/19
--- NOTE | 2019-10-17 18:53 | Cat Scan Report ---
CLINICAL INFORMATION: Right amaurosis fugax COMPARISON: None. TECHNIQUE: 80 cc of Isovue-370 were injected intravenously , and using SmartPrep to maximize cerebral arterial opacification, 0.625 mm helical slices were obtained from the skull base through the cerebral vertex. Following reconstruction , sagittal, coronal and axial reformatted images were processed and reviewed at multiple windows and levels. 3D volume rendered and MIP images were acquired at a independent workstation. The exam was performed using radiation dose optimization techniques including, but not limited to, automated exposure control, adjustment of the mA and/or kV according to patient size and use of iterative reconstruction technique. FINDINGS: Both intracranial internal carotid, vertebral, basilar, anterior, middle and posterior cerebral arteries are normal in contour and caliber well opacified. Both ophthalmic arteries are unremarkable. IMPRESSION: Normal exam Interpreted and Authenticated by: Adrian Kaba 10/17/19
--- NOTE | 2019-10-17 18:56 | Cat Scan Report ---
CLINICAL INFORMATION: Right amaurosis fugax COMPARISON: None. TECHNIQUE: 80 cc of Isovue-370 were injected intravenously, and using SmartPrep to maximize arterial opacification, 0.625 mm helical slices were obtained from the thoracic aortic arch through the [place] of [place]. Following reconstruction, 2.5mm sagittal, coronal and axial reformatted images were processed and reviewed at standard and bone algorithm/window. 3-D volume rendered, CPR and MIP images were processed using a [employer] work station.The exam was performed using radiation dose optimization techniques including, but not limited to, automated exposure control, adjustment of the mA and/or kV according to patient size and use of iterative reconstruction technique. FINDINGS: Thoracic aortic arch is normal in diameter with mild diffuse intimal thickening. Aortic branches is conventional. The brachiocephalic, both subclavian, common, internal and external carotid vertebral arteries are widely patent. Is mild calcific plaque in both carotid bifurcations. No soft tissue abnormalities. Lung apices show moderate centrilobular emphysema change IMPRESSION: Minimal calcific plaque in the carotid bifurcation otherwise negative Interpreted and Authenticated by: Adrian Kaba 10/17/19
[2019-10-17 19:10] LABS: ALT/SGPT 13 U/l (0-40); AST/SGOT 19 U/l (0-37); Albumin 3.9 gm/dL (3.2-5.2); Albumin/Globulin Ratio 2.1 (1.0-2.3); Alkaline Phosphatase 62 U/L (39-117); Bilirubin,Total 0.4 mg/dL (0.0-1.0); Blood Urea Nitrogen 13 mg/dl (8-23); Calcium 8.8 mg/dl (8.6-10.4); Carbon Dioxide 25 mmol/L (22-30); Chloride 103 mmol/L (96-108); Globulin 1.9 gm/dL (2.2-3.7); Glomerular Filtration Rate 77; Glucose 78 mg/dL (70-105)
[2019-10-17] MEDS ORDERED: ATORVASTATIN 40 MG TABLET PO ONE (19:44)
[2019-10-17 20:24] LABS: INR 1.1 (0.9-1.1); Prothrombin Time 14.2 sec (11.9-14.5)
[2019-10-17] MEDS ORDERED: TAMSULOSIN 0.4 MG CAPSULE PO ONE (21:00)
[2019-10-17] MEDS ORDERED: ALBUTEROL SULFATE 200 PUFF INHALER INH PRN (23:44)
[2019-10-17] MEDS ORDERED: 0.9 % SODIUM CHLORIDE 1,000 ML IV SCH (23:45)
[2019-10-17] MEDS ORDERED: TIOTROPIUM OLODATEROL INHALATION SCH (23:45)
--- NOTE | 2019-10-18 | Internal Med History&Physical ---
HPI History of Present Illness Patient information: Note initiated : 10/17/19 at 11:47 pm Service Date, if different from initiated Date: [] Patient: Nikhil Campbell a 69 y/o M admitted on 10/17/19 for vision loss. Chief Complaint: [right eye black out] History of present illness: Mr. Campbell is a 69 year old M with a hx of high blood pressure, COPD, and hypothyroidism who presented to the ER due to right eye blackout x2 this afternoon. As per patient, about 3 PM this afternoon his right eye went into black out which lasted about 45 minutes. For which he went to see an divorce attorney. In his office, he had another episode of right eye blackout. As per patient, divorce attorney did not find any abnormalities. At that time he did not have any other symptoms such as headache, dizziness, chest pain, shortness of breath, diaphoresis, palpitation, nausea or vomiting. He did not have urinary or bowel incontinence. In the ER, he did not have any positive neurological deficits. CT angios head and neck were unremarkable. Review of Systems All systems: reviewed and no additional remarkable complaints except as stated PFSH [facility] Medical History Allergy to vaccine (Chronic) Benign prostatic hyperplasia (Chronic) Chronic obstructive lung disease (Chronic) Collapsed lung (Chronic ~2018) Colon polyps (Chronic) Constipation (Chronic) Contusion of back (Chronic) Encounter for general adult medical examination with abnormal findings (Chronic) Family history of ischemic heart disease (Chronic) Family history of malignant neoplasm of digestive organs (Chronic) Hay fever (Chronic) Hx of measles (Chronic) Hypertension (Chronic) Hypothyroidism (Chronic) Joint pain (Chronic) Low back pain (Chronic) Maxillary sinusitis, acute (Chronic) Muscle spasm of back (Chronic) Other obstructive and reflux uropathy (Chronic) Persistent cough for 3 weeks or longer (Chronic) Pneumothorax (Chronic) Primary spontaneous pneumothorax (Chronic) Sinusitis (Chronic) Sinusitis, acute (Chronic) Skin cancer (Chronic) Upper respiratory infection (Chronic) Urinary retention (Chronic) Surgical History History of colonoscopy (Chronic ~2019) 08/23/2004, 11/28/2010, 12/20/2013, 01/02/2017 - Dr. Ott History of hernia surgery (Chronic ~2009) History of sinus surgery (Chronic ~1989) S/P rotator cuff repair (Chronic 1978) Family History Father Colon cancer Mother Thyroid disease Grandfather Cancer Maternal Family history of ischemic heart disease Maternal Brother Skin cancer Grandmother Stroke Maternal Other Family history of malignant neoplasm of digestive organs Social History marital status: smoking status: Former smoker alcohol intake frequency: 0-2 drinks per day substance use type: does not use MEDS/ALLERGIES Home Medications and Allergies Home Medications Medication Instructions Recorded Confirmed Type albuterol sulfate 2 puff INH Q4-6HP PRN 10/29/17 10/17/19 History levothyroxine 112 mcg PO DAILY 10/29/17 10/17/19 History [id number] 10 ml PO Q8H PRN #120 ml 04/21/19 10/17/19 Rx 2 mg-30 mg-10 mg/5 mL oral syrup fluticasone propionate 50 2 spray INTRANASAL QDAY #15.8 ml 04/21/19 10/17/19 Rx mcg/actuation nasal spray,suspension diazepam 5 mg tablet 5 mg PO TID PRN tab 08/23/19 10/17/19 History oxybutynin chloride 5 mg 5 mg PO QDAY tab 08/23/19 10/17/19 History tablet,extended release 24 hr tiotropium 2.5 mcg-olodaterol 2.5 2 puff INHALATION Q24H #4 g 09/21/19 10/17/19 Rx mcg/actuation mist for inhalation tamsulosin 0.4 mg capsule 0.8 mg PO QHS #180 cap 09/22/19 10/17/19 Rx Multi Vitamin 1 tab PO DAILY 10/17/19 10/17/19 History Vitamin D3 2,000 mg PO DAILY 10/17/19 10/17/19 History Allergies Allergy/AdvReac Type Severity Reaction Status Date / Time Influenza Virus Vaccines Allergy Severe pneumonia Verified 10/17/19 18:29 Pneumococcal Vaccine Allergy Intermediate Redness of Verified 10/17/19 18:29 Skin tetracycline [TETRACYCLINE] AdvReac Mild SEVERE Verified 10/17/19 18:29 HEARTBURN EXAM Constitutional Vitals: Temp Pulse Resp BP Pulse Ox 97.0 F 49 L 10 L 139/78 94 10/17/19 23:10 10/17/19 23:10 10/17/19 23:10 10/17/19 23:10 10/17/19 23:10 Additional findings Additional findings: General - No acute distress Eyes - PERRLA, EOM intact ENT no rhinorrhea, no noticeable or palpable swelling, no redness or rash a round throat or on face Neck supple, no JVD, no thyromegaly Respiratory: Lungs -clear, no wheezing or crackles. Cardiovascular - RRR no m/r/g, GI - Normal bowel sounds, no distended, soft. Extremeties - No edema, cyanosis or clubbing Hemo/lymphatic/immune no lymphadenopathy Neurological Alert and oriented x 3, no focal neurological deficits. No visual field deficits. Psychiatry flat affect DATA Data Completed and Pending Labs on day of discharge: Labs from last 24 hours 10/17/19 10/17/19 10/17/19 18:05 18:05 18:05 WBC RBC Hgb Hct MCV MCH MCHC RDW Plt Count MPV Gran % Lymph % (Auto) [place] % (Auto) Eos % (Auto) Baso % (Auto) Gran # Lymph # (Auto) [place] # (Auto) Eos # (Auto) Baso # (Auto) PT 14.2 INR 1.1 Sodium 139 Potassium 3.9 Chloride 103 Carbon Dioxide 25 Anion Gap 11.0 BUN 13 Creatinine 1.0 POC Creatinine 1.0 GFR Calculation 77 Glucose 78 Calcium 8.8 Total Bilirubin 0.4 AST 19 ALT 13 Alkaline Phosphatase 62 Troponin T < 0.01 Total Protein 5.8 L Albumin 3.9 Globulin 1.9 L Albumin/Globulin Ratio 2.1 10/17/19 18:05 WBC 5.0 RBC 4.35 L Hgb 13.9 Hct 41.9 MCV 96.3 MCH 32.0 MCHC 33.2 RDW 14.0 Plt Count 240 MPV 8.3 Gran % 56.7 Lymph % (Auto) 32.3 [place]y % (Auto) 8.4 Eos % (Auto) 2.4 Baso % (Auto) 0.2 Gran # 2.84 Lymph # (Auto) 1.62 [place]y # (Auto) 0.42 Eos # (Auto) 0.12 Baso # (Auto) 0.01 PT INR Sodium Potassium Chloride Carbon Dioxide Anion Gap BUN Creatinine POC Creatinine GFR Calculation Glucose Calcium Total Bilirubin AST ALT Alkaline Phosphatase Troponin T Total Protein Albumin Globulin Albumin/Globulin Ratio A/P Narrative A/P Narrative: 1. 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 Amaurosis fugax, right eye As per patient, no abnormalities were found in divorce attorney office 3. HTN Continue home medication 4. Sinus bradycardia with first degree AV block, around 50 Asymptomatic Troponin 5. Hypothyroidism Continue home Synthroid 6. COPD Pulse ox Continue 7. DVT prophylaxis: Lovenox 8. Status: DNI Time Spent With Patient Time: Total time spent is greater than 50% in coordination of care (as documented) at patient's floor/unit and/or counseling patient:
--- NOTE | 2019-10-18 00:02 | Event Note ---
Event Note Event Note: Advanced Care Planning Documents: Parties in Attendance: Pt and the bond writer. RN in room. Decisional Capacity: yes I explained CPR and intubation in detail to him. He agreed with cpr but declined intubation.
[2019-10-18] MEDS ORDERED: 0.9 % SODIUM CHLORIDE 10 ML SYRINGE IV SCH (06:00)
[2019-10-18 06:29] LABS: Basophils # (Auto) 0.02 K/mcL (0.00-0.30); Basophils % (Auto) 0.5 % (0.0-2.0); Eosinophils # (Auto) 0.14 K/mcL (0.00-0.70); Eosinophils % (Auto) 3.3 % (0.0-7.0); Granulocytes % (Auto) 53.2 % (38.0-78.0); Hematocrit 40.6 % (40.1-51.0); Hemoglobin 13.4 g/dL (13.7-17.5); Lymphocytes # (Auto) 1.35 K/mcL (1.50-4.80); Lymphocytes % (Auto) 31.9 % (15.5-49.0); Mean Platelet Volume 8.5 fL (7.4-10.4); Monocytes # (Auto) 0.47 K/mcL (0.10-0.90); Monocytes % (Auto) 11.1 % (1.0-12.0); Platelet Count 221 K/mcL (140-440); RBC 4.23 M/mcL (4.63-6.08); Red Cell Distribution Width 13.9 % (11.5-14.5); WBC 4.2 K/mcL (4.50-11.00)
[2019-10-18 06:57] LABS: ALT/SGPT 12 U/l (0-40); AST/SGOT 18 U/l (0-37); Albumin 3.4 gm/dL (3.2-5.2); Albumin/Globulin Ratio 1.8 (1.0-2.3); Alkaline Phosphatase 56 U/L (39-117); Bilirubin,Total 0.4 mg/dL (0.0-1.0); Blood Urea Nitrogen 11 mg/dl (8-23); Calcium 8.6 mg/dl (8.6-10.4); Carbon Dioxide 26 mmol/L (22-30); Chloride 106 mmol/L (96-108); Globulin 1.9 gm/dL (2.2-3.7); Glomerular Filtration Rate 92; Glucose 87 mg/dL (70-105); HDL Cholesterol 48 mg/dl (>40); LDL Cholesterol,Calculated 73 mg/dl (SEE CHART); Non-HDL Cholesterol 99 (LDL TARGET+30); Triglycerides 135 mg/dl (<150)
[2019-10-18] MEDS ORDERED: LEVOTHYROXINE SODIUM 112 MCG TABLET PO SCH (07:30)
[2019-10-18 07:45] LABS: Estimated Average Glucose(eAG) 108 mg/dL; Hemoglobin A1C 5.4 % HGB (4.0-6.0)
[2019-10-18] MEDS ORDERED: MULTIVIT,THER IRON,CA,FA & MIN 1 TABLET PO SCH (09:00)
[2019-10-18] MEDS ORDERED: ASPIRIN 81 MG TAB.CHEW PO SCH (09:00)
[2019-10-18] MEDS ORDERED: OXYBUTYNIN CHLORIDE 5 MG TAB.XL.24H PO SCH (09:00)
[2019-10-18] MEDS ORDERED: FLUTICASONE PROPIONATE SPRAY.NAS NS SCH (09:00)
[2019-10-18] MEDS ORDERED: ATORVASTATIN 40 MG TABLET PO SCH (09:00)
[2019-10-18] MEDS ORDERED: Tiotropium-Olodaterol [Stiolto Respimat] Inhaler INH SCH (09:00)
[2019-10-18] MEDS ORDERED: DOCUSATE SODIUM 100 MG CAPSULE PO SCH (09:00)
[2019-10-18] MEDS ORDERED: ENOXAPARIN 40 MG/0.4 ML SYRINGE SQ SCH (09:00)
[2019-10-18] MEDS ORDERED: VITAMIN D3 1,000 UNIT TABLET PO SCH (09:00)
--- NOTE | 2019-10-18 09:35 | Discharge Summary ---
Discharge Provider Provider Patient information: Note initiated : 10/18/19 at 9:30 am Service Date, if different from initiated Date: [] Patient: Nikhil Campbell 69 y/o M admitted on 10/17/19 for vision loss. Chief Complaint: [] refer to hospital course Date of admission: 10/17/19 23:06 Discharge date: 10/18/19 Primary care physician: Jae Donis Consults: 10/17/19 Consult to Physician [CONS] Stat Comment: Consulting Provider: Lawrence Romero Reason For Exam: Physician to Consult Discharge Meds Discharge Medications Home Medications albuterol sulfate 2 puff INH Q4-6HP PRN 10/29/17 [History Confirmed 10/17/[address] Taken 10/15/19 20:00] levothyroxine 112 mcg PO DAILY 10/29/17 [History Confirmed 10/17/19 Last Taken 10/17/19 07:00] fluticasone propionate 50 mcg/actuation nasal spray,suspension 2 spray INTRANASA L QDAY #15.8 ml 04/21/19 [Rx Confirmed 10/17/19 Last Taken 10/17/19 07:00] oxybutynin chloride 5 mg tablet,extended release 24 hr 5 mg PO QDAY tab 08/23/19 [History Confirmed 10/17/19 Last Taken 10/17/19 07:00] tiotropium 2.5 mcg-olodaterol 2.5 mcg/actuation mist for inhalation 2 puff INHALATION Q24H #4 g 09/21/19 [Rx Confirmed 10/17/19 Last Taken 10/17/19 07:00] tamsulosin 0.4 mg capsule 0.8 mg PO QHS #180 cap 09/22/19 [Rx Confirmed 10/17/19 Last Taken 10/16/19 16:00] Multi Vitamin 1 tab PO DAILY 10/17/19 [History Confirmed 10/17/19 Last Taken 10/17/19 07:00] Vitamin D3 2,000 mg PO DAILY 10/17/19 [History Confirmed 10/17/19 Last Taken 10/17/19 07:00] aspirin 81 mg PO DAILY #30 tab 10/18/19 [Rx Last Taken Unknown] atorvastatin 40 mg PO DAILY #30 tab 10/18/19 [Rx Last Taken Unknown] COURSE Hospital Course Hospital course: Mr. Campbell is a 69 year old M with a hx of high blood pressure, COPD, and hypo thyroidism who presented to the ER due to right eye blackout x2 this afternoon. As per patient, about 3 PM this afternoon his right eye went into black out which lasted about 45 minutes. For which he went to see an ground wirer. In his office, he had another episode of right eye blackout. As per patient, ground wirer did not find any abnormalities. At that time he did not have any other symptoms such as headache, dizziness, chest pain, shortness of breath, diaphoresis, palpitation, nausea or vomiting. He did not have urinary or bowel incontinence. In the ER, he did not have any positive neurological deficits. CT angios head and neck were unremarkable. 1. 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 Amaurosis fugax, right eye, resolved As per patient, no abnormalities were found in ground wirer office Follow with PCP and event staff 3. HTN Continue home medication Follow with a television camera operator 4. Sinus bradycardia with first degree AV block, around 50 Asymptomatic Troponin negative Follow with television camera operator 5. Hypothyroidism Continue home Synthroid Follow with PCP 6. COPD Pulse ox Continue Follow-up with PCP Today he does not have any complaints. Denies headache, dizziness, shortness of breath, chest pain, abdominal pain, fever, chills, dysuria, or changes in vision. as per pt, family is supportive. He will be discharged to home to follow with the PCP in 3 days, neurology and television camera operator in 1 week. Call PCP for medical issues. Discharge diagnosis: TIA? Time Spent with Patient Time attestation: Total time spent providing and/or coordinating discharge services: EXAM Constitutional Vitals: Temp Pulse Resp BP Pulse Ox 97.8 F 65 18 105/66 90 10/18/19 08:01 10/18/19 09:01 10/18/19 09:01 10/18/19 09:01 10/18/19 09:01 Additional findings Additional findings: General - No acute distress Eyes - PERRLA, EOM intact ENT no rhinorrhea, no noticeable or palpable swelling, no redness or rash around throat or on face Neck supple, no JVD, no thyromegaly Respiratory: Lungs -clear, no wheezing or crackles. Cardiovascular - RRR no m/r/g, GI - Normal bowel sounds, no distended, soft. Extremeties - No edema, cyanosis or clubbing Hemo/lymphatic/immune no lymphadenopathy Neurological Alert and oriented x 3, no focal neurological deficits. No visual field deficits. Psychiatry flat affect Discharge Data Data Completed and Pending Labs on day of discharge: Labs from last 24 hours 10/18/19 10/18/19 10/18/19 04:25 04:25 04:25 WBC 4.2 L RBC 4.23 L Hgb 13.4 L Hct 40.6 MCV 96.0 MCH 31.7 MCHC 33.0 RDW 13.9 Plt Count 221 MPV 8.5 Gran % 53.2 Lymph % (Auto) 31.9 Lyon % (Auto) 11.1 Eos % (Auto) 3.3 Baso % (Auto) 0.5 Gran # 2.25 Lymph # (Auto) 1.35 L Lyon # (Auto) 0.47 Eos # (Auto) 0.14 Baso # (Auto) 0.02 PT INR Sodium 141 Potassium 3.6 Chloride 106 Carbon Dioxide 26 Anion Gap 9.0 BUN 11 Creatinine 0.8 POC Creatinine GFR Calculation 92 Glucose 87 Hemoglobin A1c 5.4 Estim Average Glucose 108 Calcium 8.6 Total Bilirubin 0.4 AST 18 ALT 12 Alkaline Phosphatase 56 Troponin T < 0.01 Total Protein 5.3 L Albumin 3.4 Globulin 1.9 L Albumin/Globulin Ratio 1.8 Triglycerides 135 Cholesterol 147 LDL Cholesterol, Calc 73 Non-HDL Cholesterol 99 HDL Cholesterol 48 10/18/19 10/17/19 10/17/19 00:09 18:05 18:05 WBC RBC Hgb Hct MCV MCH MCHC RDW Plt Count MPV Gran % Lymph % (Auto) Lyon % (Auto) Eos % (Auto) Baso % (Auto) Gran # Lymph # (Auto) [place] # (Auto) Eos # (Auto) Baso # (Auto) PT 14.2 INR 1.1 Sodium Potassium Chloride Carbon Dioxide Anion Gap BUN Creatinine POC Creatinine GFR Calculation Glucose Hemoglobin A1c Estim Average Glucose Calcium Total Bilirubin AST ALT Alkaline Phosphatase Troponin T < 0.01 < 0.01 Total Protein Albumin Globulin Albumin/Globulin Ratio Triglycerides Cholesterol LDL Cholesterol, Calc Non-HDL Cholesterol HDL Cholesterol 10/17/19 10/17/19 18:05 18:05 WBC 5.0 RBC 4.35 L Hgb 13.9 Hct 41.9 MCV 96.3 MCH 32.0 MCHC 33.2 RDW 14.0 Plt Count 240 MPV 8.3 Gran % 56.7 Lymph % (Auto) 32.3 Lyon % (Auto) 8.4 Eos % (Auto) 2.4 Baso % (Auto) 0.2 Gran # 2.84 Lymph # (Auto) 1.62 [place] # (Auto) 0.42 Eos # (Auto) 0.12 Baso # (Auto) 0.01 PT INR Sodium 139 Potassium 3.9 Chloride 103 Carbon Dioxide 25 Anion Gap 11.0 BUN 13 Creatinine 1.0 POC Creatinine 1.0 GFR Calculation 77 Glucose 78 Hemoglobin A1c Estim Average Glucose Calcium 8.8 Total Bilirubin 0.4 AST 19 ALT 13 Alkaline Phosphatase 62 Troponin T Total Protein 5.8 L Albumin 3.9 Globulin 1.9 L Albumin/Globulin Ratio 2.1 Triglycerides Cholesterol LDL Cholesterol, Calc Non-HDL Cholesterol HDL Cholesterol Discharge Plan Patient/Caregiver Discharge Instructions Activity: increase activity as tolerated Diet: Cardiac and Low Fat Instructions: Transient Ischemic Attack (GEN), Heart Healthy Diet (GEN) Activity Restrictions/Additional Instructions: This discharge packet is provided to you to help keep you informed about your care. We want to ensure you get everything you need when you go home. You will also be receiving a call from us in a few days to follow up with you and see how you are doing since your discharge. This gives us a chance to listen to any concerns you maybe experiencing since you were discharged or any additional needs you may have, as well as providing us feedback on your care experience. We strive to always provide excellent care and thank you for your feedback and for choosing [facility]. Prescriptions: New atorvastatin 40 mg Tablet 40 mg PO DAILY Qty: 30 RF: 0 aspirin 81 mg Tablet,Chewable 81 mg PO DAILY Qty: 30 RF: 0 Continued Stiolto Respimat 2.5-2.5 mcg/actuation mist 2 puff INHALATION Q24H Qty: 4 RF: 1 tamsulosin [Flomax] 0.4 mg capsule 0.8 mg PO QHS Qty: 180 RF: 0 oxybutynin chloride 5 mg tablet extended release 24hr 5 mg PO QDAY RF: 0 fluticasone propionate [Flonase Allergy Relief] 50 mcg/actuation spray,alegria spension 2 spray INTRANASAL QDAY Qty: 15.8 RF: 0 levothyroxine 112 MCG tablet 112 mcg PO DAILY RF: 0 albuterol sulfate 1 PUFF inhaler 2 puff INH Q4-6HP PRN (Reason: Shortness Of Breath) RF: 0 Multi Vitamin 1 tab tablet 1 tab PO DAILY RF: 0 Vitamin D3 2,000 tab capsule 2,000 mg PO DAILY RF: 0 Discontinued diazepam 5 mg tablet 5 mg PO TID PRN (Reason: Pain, Severe) RF: 0 [id number] [Bromfed DM] 2-30-10 mg/5 mL syrup 10 ml PO Q8H PRN (Reason: cold symptoms) Qty: 120 RF: 0 Follow Up Plan Follow up with: Unknown [Outside] (Neurology and cardiology in one week or sooner if possible. ) Jae Donis MD [Primary Care Provider] - 10/27/19 2:00 pm (Please check in at 1:45 pm) Patient Disposition: Home, Self-Care Prognosis: Good Rehab Potential: Fair Discharge Orders: Discharge Order (Routine); Ordered 10/18/19 Ordered By: Lawrence TOSCANO VTE Deep Vein Thrombosis/Pulmonary Embolism Present on Admission: No
[2019-10-18] MEDS ORDERED: TAMSULOSIN 0.4 MG CAPSULE PO SCH (21:00)
== END 2019-10-18 12:25 | disposition home or self-care (01) ==
LOC: ED 17:35 → ICU 17:35
PROVIDERS: ADMIT Internal Medicine; ATTEND Internal Medicine

== ENCOUNTER 2021-10-30 10:29 | Inpatient (IN) ==
--- NOTE | 2021-10-30 10:40 | Emergency Department Note ---
HPI General Chief complaint: Cold/Flu Symptoms Stated complaint: SOB Time Seen by Provider: 10/30/21 10:40 Source: patient Mode of arrival: ambulatory Limitations: no limitations History of Present Illness HPI Narrative: 71-year-old male with past medical history of COPD not on home O2, ascending aortic aneurysm, hypothyroidism, and BPH presenting with chills, shortness of breath, and fatigue since last night. He states this morning he had chills and felt more short of breath but started feeling unwell last night. + nonproductive cough. His family gave him Tylenol around 0915 and he used his home inhalers this morning. Family reports his baseline O2 saturation at home is around 88%. He is not on home O2. No sick contacts. He has received the COVID-vaccine and boosters. He endorses nausea but no vomiting. No headache, neck pain, chest pain, abdominal pain, or leg swelling. No dysuria or hematuri a. Related Data Home Medications Medication Instructions Recorded Confirmed cholecalciferol (vitamin D3) 50 50 mcg PO QDAY 11/09/19 10/30/21 mcg (2,000 unit) capsule msjoyxrpewo-bet-rausjzrlq-[id number] 2 tab PO QDAY 11/09/19 10/30/21 149-hyalur 500 mg-500 mg-66.7 mg tablet (Uludnaunywt-Vmnvcmiceje-ITY (with antiox)) multivitamin 1 tab PO QDAY 11/09/19 10/30/21 Previous Rx's Medication Instructions Recorded fluticasone propionate 50 2 spray intranasal QDAY #15.8 mL 04/21/19 mcg/actuation nasal spray,suspension (Flonase Allergy Relief) aspirin 81 mg chewable tablet 81 mg PO DAILY #30 tabs 10/18/19 albuterol sulfate 90 mcg/actuation 2 puff inhalation Q4-6HP PRN 03/06/20 aerosol inhaler (Ventolin HFA) Shortness Of Breath #18 grams levothyroxine 112 mcg tablet 112 mcg PO QDAY #90 tabs 02/22/21 (Synthroid) atorvastatin 40 mg tablet (Lipitor) 40 mg PO QDAY #90 tabs 05/14/21 tamsulosin 0.4 mg capsule (Flomax) 0.8 mg PO QHS #180 caps 06/27/21 tolterodine 4 mg capsule,extended 4 mg PO Q24H #30 caps 08/22/21 release 24 hr tiotropium bromide 2.5 2 puff inhalation QDAY 90 days #12 10/24/21 mcg/actuation mist for inhalation grams (Spiriva Respimat) Allergies Allergy/AdvReac Type Severity Reaction Status Date / Time Influenza Virus Vaccines AdvReac Intermediate pneumonia Verified 06/27/21 08:59 Pneumococcal Vaccine AdvReac Intermediate Redness of Verified 06/27/21 08:59 Skin tetracycline [TETRACYCLINE] AdvReac Mild SEVERE Verified 06/27/21 08:59 HEARTBURN Review of Systems ROS ROS Narrative: Narrative: Constitutional: Reports chills Eyes: Denies vision change ENT ED: Denies throat pain Cardiovascular: Denies chest pain Respiratory: Reports shortness of breath and cough Gastrointestinal: Reports nausea; Denies abdominal pain, vomiting, diarrhea or melena Genitourinary: Denies dysuria or hematuria Musculoskeletal: Denies back pain or joint swelling Integumentary: Denies rash Neurological: Denies headache or dizziness Psychiatric: Denies anxiety Endocrine: Reports fatigue Hematological/Lymphatic: Denies easy bruising PFSH Narrative Patient History Narrative: Narrative: Medical/Surgical/Family History All Active Problems (Updated 10/30/21 @ 14:52 by Femi Gauthier MD) Muscle spasm of back (Chronic) Contusion of back (Chronic) Sinusitis (Chronic) Pneumothorax (Chronic) Primary spontaneous pneumothorax (Chronic) Chronic obstructive lung disease (Chronic) Sinusitis, acute (Chronic) Other obstructive and reflux uropathy (Chronic) Low back pain (Chronic) Hypothyroidism (Chronic) Family history of malignant neoplasm of digestive organs (Chronic) Family history of ischemic heart disease (Chronic) Benign prostatic hyperplasia (Chronic) Allergy to vaccine (Chronic) Constipation (Chronic) Hypertension (Chronic) Hay fever (Chronic) Hx of measles (Chronic) History of hernia surgery (Chronic ~2009) Encounter for general adult medical examination with abnormal findings (Chronic) Persistent cough for 3 weeks or longer (Chronic) Upper respiratory infection (Chronic) Urinary retention (Chronic) Maxillary sinusitis, acute (Chronic) Skin cancer (Chronic) Joint pain (Chronic) Collapsed lung (Chronic ~2017) Colon polyps (Chronic) History of colonoscopy (Chronic ~2018) Brain TIA (Chronic) Amaurosis fugax (Chronic) Medicare annual wellness visit, subsequent (Chronic) Hospital discharge follow-up (Chronic) Annual physical exam (Chronic) OAB (overactive bladder) (Chronic) BPH associated with nocturia (Acute) UTI (urinary tract infection) (Acute) Sepsis (Acute) Medical History Allergy to vaccine Amaurosis fugax Annual physical exam Benign prostatic hyperplasia BPH associated with nocturia Brain TIA Chronic obstructive lung disease Collapsed lung (~2017) Colon polyps Constipation Contusion of back Encounter for general adult medical examination with abnormal findings Family history of ischemic heart disease Family history of malignant neoplasm of digestive organs Hay fever Hospital discharge follow-up Hx of measles Hypertension Hypothyroidism Joint pain Low back pain Maxillary sinusitis, acute Medicare annual wellness visit, subsequent Muscle spasm of back OAB (overactive bladder) Other obstructive and reflux uropathy Persistent cough for 3 weeks or longer Pneumothorax Primary spontaneous pneumothorax Sinusitis Sinusitis, acute Skin cancer Upper respiratory infection Urinary retention Surgical History History of colonoscopy (~2018) 08/23/2004, 11/28/2010, 12/20/2013, 01/02/2017 - Dr. Ott History of hernia surgery (~2009) Times 2 History of sinus surgery (~1989) S/P rotator cuff repair (1978) Family History Father Colon cancer Mother Thyroid disease Grandfather Cancer Maternal Family history of ischemic heart disease Maternal Brother Skin cancer Grandmother Stroke Maternal Other Family history of malignant neoplasm of digestive organs Social History Smoking Status: Former smoker Alcohol Intake Frequency: 0-2 drinks per day Substance Use: does not use Exam Narrative Narrative: Narrative: General Limitations: no limitations General appearance: Present alert and in no apparent distress Head Head: Present atraumatic and normocephalic Eye Eye: Present normal appearance, PERRL and EOMI; Absent scleral icterus or conjunctival injection ENT ENT: Present mucous membranes moist Neck Neck: Present normal inspection, full ROM and trachea midline; Absent tenderness, meningismus or lymphadenopathy Chest Chest: Present symmetric chest wall rise Respiratory Respiratory: Present rales/crackles (diffuse Rales in both lungs) and wheezes (Faint expiratory wheezes present both lungs); Absent respiratory distress, stridor or accessory muscle use Cardiovascular Cardiovascular: Present regular rate and normal rhythm; Absent systolic murmur or diastolic murmur Adbominal Abdominal: Present soft; Absent distention, tenderness, guarding, rebound or rigidity Extremities Extremities: Present normal inspection; Absent pretibial edema Back Back: Present normal inspection Neurological Neurological: Present alert and oriented X3; Absent motor sensory deficit Psychiatric Psychiatric: Present normal affect and normal mood Skin Skin: Present warm (WNL) and dry Course Consultations Consultation #1: Dr. Ivy, hospitalist Time: 14:46 Vital Signs Vital signs: Vital Signs Temperature 98.1 F 10/30/21 10:35 Pulse Rate 110 H 10/30/21 10:35 Respiratory Rate 22 10/30/21 10:35 Blood Pressure 66/42 10/30/21 10:35 Pulse Oximetry (%) 89 L 10/30/21 10:35 Oxygen Delivery Method 10/30/21 10:35 Temperature 100.4 F H 10/30/21 14:47 Pulse Rate 98 H 10/30/21 14:27 Respiratory Rate 28 H 10/30/21 14:27 Blood Pressure 94/72 10/30/21 14:15 Pulse Oximetry (%) 93 10/30/21 14:27 Oxygen Delivery Method 10/30/21 10:35 MDM MDM Narrative Medical decision making narrative: 71-year-old male presenting with shortness of breath, chills, and fatigue. He is satting 91% on room air. Initially hypotensive to 70s over 50s. 2 L normal saline ordered. Will obtain labs including VBG, blood cultures, chest x-ray, UA, and COVID swab. Labs notable for leukocytosis to 25.7. VBG and lactate are normal. Chest x-ray shows no focal infiltrate. UA is consistent with infection. Patient was given a total of 3 L normal saline for urosepsis. Vancomycin and Zosyn ordered. Patient's blood pressures have been stable in the high 90s to low 100s systolic. He was given p.o. Tylenol for low-grade fever to 100.4F. Patient endorsed to Dr. Ivy for admission. Lab Data Lab results reviewed: Yes I reviewed the patient's lab results. Result diagrams: 10/30/21 11:04 10/30/21 11:04 Labs: Lab Results 10/30/21 10/30/21 10/30/21 Range/Units 11:04 11:04 12:27 WBC 25.7 H (4.5-11.0) K/mcL RBC 4.87 (4.63-6.08) M/mcL Hgb 15.1 (13.7-17.5) g/dL Hct 45.1 (40.1-51.0) % MCV 92.6 (80.0-100.0) fL MCH 31.0 (26.0-34.0) pg MCHC 33.5 (31.0-36.0) g/dL RDW 14.4 (11.5-14.5) % Plt Count 246 (140-440) K/mcL MPV 8.9 (7.4-10.4) fL Immature Gran % (Auto) 1.9 H (0.0-0.5) % Neut % (Auto) 87.1 H (38.0-78.0) % Lymph % (Auto) 2.9 L (15.5-49.0) % [place] % (Auto) 7.9 (1.0-12.0) % Eos % (Auto) 0 (0.0-7.0) % Baso % (Auto) 0.2 (0.0-2.0) % Lymph # (Auto) 0.75 L (1.50-4.80) K/mcL [place] # (Auto) 2.03 H (0.10-0.90) K/mcL Eos # (Auto) 0 (0.00-0.70) K/mcL Baso # (Auto) 0.05 (0.00-0.30) K/mcL Immature Gran # 0.48 H (0.00-0.05) K/mcl Absolute Neutrophils 22.39 H (1.80-8.00) K/mcL POC VBG pH 7.40 (7.32-7.42) POC VBG pCO2 at Temp 44.7 (41-51) POC VBG pO2 29 (25-40) POC VBG HCO3 27.9 (24-28) POC VBG Total CO2 29.0 (25-29) POC Venous O2 Sat 56.0 (40-70) POC VBG Base Excess 3.0 H (-2-2) VBG Lactic Acid 1.3 (0.5-2) Sodium 137 (133-145) mmol/L Potassium 4.1 (3.3-5.1) mmol/L Chloride 100 (96-108) mmol/L Carbon Dioxide 25 (22-30) mmol/L Anion Gap 12.0 (8.0-16.0) BUN 15 (8-23) mg/dL Creatinine 1.1 (0.7-1.2) mg/dL GFR Calculation 68 Glucose 78 (70-105) mg/dL Calcium 9.5 (8.6-10.4) mg/dL Total Bilirubin 1.0 (0.1-1.0) mg/dL AST 27 (<40) U/L ALT 16 (<40) U/L Alkaline Phosphatase 76 (39-117) U/L Total Protein 6.4 (5.9-8.4) gm/dL Albumin 3.6 (3.2-5.2) gm/dL Globulin 2.8 (2.2-3.7) gm/dL Albumin/Globulin Ratio 1.3 (1.0-2.3) Urine Color Urine Appearance (Clear) Urine pH (5.0-9.0) Ur Specific Volin (1.000-1.035) Urine Protein (Negative) mg/dL Urine Glucose (UA) (Negative) mg/dL Urine Ketones (Negative) mg/dL Urine Occult Blood (Negative) chandan/mcL Urine Nitrate (Negative) Urine Bilirubin (Negative) mg/dL Urine Urobilinogen mg/dL Ur Leukocyte Esterase (Negative) /uL Urine RBC (0-3) /hpf Urine WBC (0-4) /hpf Ur Squamous Epith Cells (0-4) /hpf Urine Bacteria (0) /hpf Hyaline Casts (0-2) /lph Urine Mucus (None) /hpf Ur Culture Indicated? 10/30/21 Range/Units 13:25 WBC (4.5-11.0) K/mcL RBC (4.63-6.08) M/mcL Hgb (13.7-17.5) g/dL Hct (40.1-51.0) % MCV (80.0-100.0) fL MCH (26.0-34.0) pg MCHC (31.0-36.0) g/dL RDW (11.5-14.5) % Plt Count (140-440) K/mcL MPV (7.4-10.4) fL Immature Gran % (Auto) (0.0-0.5) % Neut % (Auto) (38.0-78.0) % Lymph % (Auto) (15.5-49.0) % [place] % (Auto) (1.0-12.0) % Eos % (Auto) (0.0-7.0) % Baso % (Auto) (0.0-2.0) % Lymph # (Auto) (1.50-4.80) K/mcL [place] # (Auto) (0.10-0.90) K/mcL Eos # (Auto) (0.00-0.70) K/mcL Baso # (Auto) (0.00-0.30) K/mcL Immature Gran # (0.00-0.05) K/mcl Absolute Neutrophils (1.80-8.00) K/mcL POC VBG pH (7.32-7.42) POC VBG pCO2 at Temp (41-51) POC VBG pO2 (25-40) POC VBG HCO3 (24-28) POC VBG Total CO2 (25-29) POC Venous O2 Sat (40-70) POC VBG Base Excess (-2-2) VBG Lactic Acid (0.5-2) Sodium (133-145) mmol/L Potassium (3.3-5.1) mmol/L Chloride (96-108) mmol/L Carbon Dioxide (22-30) mmol/L Anion Gap (8.0-16.0) BUN (8-23) mg/dL Creatinine (0.7-1.2) mg/dL GFR Calculation Glucose (70-105) mg/dL Calcium (8.6-10.4) mg/dL Total Bilirubin (0.1-1.0) mg/dL AST (<40) U/L ALT (<40) U/L Alkaline Phosphatase (39-117) U/L Total Protein (5.9-8.4) gm/dL Albumin (3.2-5.2) gm/dL Globulin (2.2-3.7) gm/dL Albumin/Globulin Ratio (1.0-2.3) Urine Color Lois Urine Appearance Clear (Clear) Urine pH 7.5 (5.0-9.0) Ur Specific Volin 1.015 (1.000-1.035) Urine Protein 100 mg/dl A (Negative) mg/dL Urine Glucose (UA) Negative (Negative) mg/dL Urine Ketones Negative (Negative) mg/dL Urine Occult Blood Moderate A (Negative) chandan/mcL Urine Nitrate Positive A (Negative) Urine Bilirubin Negative (Negative) mg/dL Urine Urobilinogen Normal mg/dL Ur Leukocyte Esterase Small A (Negative) /uL Urine RBC 27 H (0-3) /hpf Urine WBC > 182 H (0-4) /hpf Ur Squamous Epith Cells 0 (0-4) /hpf Urine Bacteria Many A (0) /hpf Hyaline Casts 22 H (0-2) /lph Urine Mucus Mod A (None) /hpf Ur Culture Indicated? yes ED POC Tests ED POC Tests: JOSÉ MIGUEL - SARS Antigen Negative Radiology Data Radiology results reviewed: Yes I reviewed the patient's radiology results. Radiology results narrative: Ordering Physician:Femi Gauthier M.D. Date of Service:10/30/21 Procedure(s):XR chest 1V portable INDICATION: SOB, fatigue TECHNIQUE: AP portable semiupright chest x-ray COMPARISON: Previous chest x-ray dated 06/27/2021. Previous chest CTA dated 08/30/2021 FINDINGS: Lungs:Lungs are hyperexpanded. Patient has significant central lobular emphysema. No focal parenchymal infiltrate or mass. No acute abnormality or interval change Heart, vascular:No significant cardiomegaly. Pulmonary vascularity is normal. No pulmonary edema or pulmonary congestion Mediastinum, tamar:No mediastinal widening. No hilar mass Pleura:No pleural fluid. No pleural-based mass or calcification Skeletal:Negative. IMPRESSION: 1. Emphysema 2. No acute or focal abnormality Interpreted and Authenticated by: Adrian Garcia 10/30/21 111 111 [employer] Lab[employer]: <Electronically signed by Adrian Garcia M.D. in OV> 10/30/21 1120 Discharge Plan Patient/Caregiver Discharge Instructions Pt seen by ROTARY DUMP OPERATOR/PA only: No Clinical Impression: UTI (urinary tract infection), Sepsis Patient Disposition: Xfer As Inpt ([facility]) Condition: Fair Follow up with: Jae Donis MD [Primary Care Provider] - Prescriptions: No Action albuterol sulfate [Ventolin HFA] 90 mcg/actuation HFA aerosol inhaler 2 puff inhalation Q4-6HP PRN (Reason: Shortness Of Breath) Qty: 18 2RF levothyroxine [Synthroid] 112 mcg tablet 112 mcg PO QDAY Qty: 90 1RF atorvastatin [Lipitor] 40 mg tablet 40 mg PO QDAY Qty: 90 1RF tolterodine 4 mg capsule,extended release 24hr 4 mg PO Q24H Qty: 30 6RF Spiriva Respimat 2.5 mcg/actuation mist 2 puff INHALATION QDAY 90 Days Qty: 12 3RF [id number]-owv-iwppg-[id number] [Otravm-Xcsuh-WGH (with antiox)] 500-500-66.7 mg tablet 2 tab PO QDAY multivitamin Tablet 1 tab PO QDAY cholecalciferol (vitamin D3) 50 mcg (2,000 unit) capsule 50 mcg PO QDAY fluticasone propionate [Flonase Allergy Relief] 50 mcg/actuation spray,suspension 2 spray INTRANASAL QDAY Qty: 15.8 0RF Rx Instructions: administer into each nostril aspirin 81 mg Tablet,Chewable 81 mg PO DAILY Qty: 30 0RF tamsulosin [Flomax] 0.4 mg capsule 0.8 mg PO QHS Qty: 180 6RF
[2021-10-30] MEDS ORDERED: 0.9 % SODIUM CHLORIDE 1,000 ML IV ONE ×4 (11:04→16:08)
--- NOTE | 2021-10-30 11:24 | XRay Report ---
INDICATION: SOB, fatigue TECHNIQUE: AP portable semiupright chest x-ray COMPARISON: Previous chest x-ray dated 06/27/2021. Previous chest CTA dated 08/30/2021 FINDINGS: Lungs:Lungs are hyperexpanded. Patient has significant central lobular emphysema. No focal parenchymal infiltrate or mass. No acute abnormality or interval change Heart, vascular:No significant cardiomegaly. Pulmonary vascularity is normal. No pulmonary edema or pulmonary congestion Mediastinum, tamar:No mediastinal widening. No hilar mass Pleura:No pleural fluid. No pleural-based mass or calcification Skeletal:Negative. IMPRESSION: 1. Emphysema 2. No acute or focal abnormality Interpreted and Authenticated by: Adrian Garcia 10/30/21
[2021-10-30 12:14] LABS: Basophils # (Auto) 0.05 K/mcL (0.00-0.30); Basophils % (Auto) 0.2 % (0.0-2.0); Eosinophils # (Auto) 0 K/mcL (0.00-0.70); Eosinophils % (Auto) 0 % (0.0-7.0); Hematocrit 45.1 % (40.1-51.0); Hemoglobin 15.1 g/dL (13.7-17.5); Lymphocytes # (Auto) 0.75 K/mcL (1.50-4.80); Lymphocytes % (Auto) 2.9 % (15.5-49.0); Mean Cell Volume 92.6 fL (80.0-100.0); Mean Corpuscular HGB Conc 33.5 g/dL (31.0-36.0); Mean Platelet Volume 8.9 fL (7.4-10.4); Monocytes # (Auto) 2.03 K/mcL (0.10-0.90); Monocytes % (Auto) 7.9 % (1.0-12.0); Neutrophils % (Auto) 87.1 % (38.0-78.0); Platelet Count 246 K/mcL (140-440); RBC 4.87 M/mcL (4.63-6.08); Red Cell Distribution Width 14.4 % (11.5-14.5); WBC 25.7 K/mcL (4.5-11.0)
[2021-10-30] MEDS ORDERED: PIPERACILLIN SODIUM/TAZOBACTAM 3.375 GM in DEXTROSE 5% IN WATER 50 ML IV ONE (12:29)
[2021-10-30] MEDS ORDERED: VANCOMYCIN 1,500 MG in 0.9 % SODIUM CHLORIDE 500 ML IV ONE (12:29)
[2021-10-30 12:39] LABS: ALT/SGPT 16 U/L (<40); AST/SGOT 27 U/L (<40); Albumin 3.6 gm/dL (3.2-5.2); Albumin/Globulin Ratio 1.3 (1.0-2.3); Alkaline Phosphatase 76 U/L (39-117); Blood Urea Nitrogen 15 mg/dL (8-23); Calcium 9.5 mg/dL (8.6-10.4); Carbon Dioxide 25 mmol/L (22-30); Chloride 100 mmol/L (96-108); Globulin 2.8 gm/dL (2.2-3.7); Glomerular Filtration Rate 68; Glucose 78 mg/dL (70-105)
[2021-10-30 14:20] LABS: Appearance,Urine Clear (Clear); Bacteria,Urine MANY /hpf (0); Bilirubin,Urine Negative (Negative); Color,Urine Amber; Culture Indicated,Urine yes; Glucose,Urine (UA) Negative (Negative); Ketones,Urine Negative (Negative); Leukocyte Esterase,Urine Small /uL (Negative); Mucus,Urine MOD /hpf; Nitrate,Urine Positive (Negative); PH,Urine 7.5 (5.0-9.0); Specific Gravity,Urine 1.015 (1.000-1.035); Urine Blood Moderate ery/mcL (Negative); Urine Hyaline Cast 22 /lph (0-2); Urine RBC 27 /hpf (0-3); Urine Squamous Epithelial Cell 0 /hpf (0-4); Urine WBC > 182 /hpf (0-4); Urobilinogen,Urine Normal
[2021-10-30] MEDS ORDERED: ACETAMINOPHEN 325 MG TABLET PO ONE (14:20)
--- NOTE | 2021-10-30 15:14 | Internal Med History&Physical ---
HPI History of Present Illness Patient information: Note initiated : 10/30/21 at 3:02 pm Service Date, if different from initiated Date: [] Patient: Nikhil Campbell a 71 y/o M admitted on for Shortness of breath. Chief Complaint: [] History of present illness: Mr. Campbell is a 71 year old M Presents the ED with weakness chills headache lightheadedness and some nausea. Patient states he woke up feeling fine yesterday but during the evening started feeling bad with the above symptoms. He also developed a mild worsening of his chronic cough. And has some thick phlegm and has been able to cough but has not build to expectorate entirely. Patient also complains of malodorous urine and dysuria. Is also increased urinary frequency. His said his oxygen saturation was 84% this morning. He typically runs 88-89%, given his COPD. His systolic blood pressure typically runs in the low 100s but in the ER he had systolics in the 80s. He was tachypneic and tachycardic. His T-max in the ER was 100.4. His urine was consistent with infection. Chest x-ray unremarkable. He had a leukocytosis of 25,000. Lactic acid was within normal limits. Rapid COVID was negative. Review of Systems: Pertinent positives as above. Denies vomiting/chest or abdominal pain/diarrhea. Remaining 10 point review of system reviewed negative. PFSH PFSH All Active Problems (Updated 10/30/21 @ 14:52 by Femi Gauthier MD) Muscle spasm of back (Chronic) Contusion of back (Chronic) Sinusitis (Chronic) Pneumothorax (Chronic) Primary spontaneous pneumothorax (Chronic) Chronic obstructive lung disease (Chronic) Sinusitis, acute (Chronic) Other obstructive and reflux uropathy (Chronic) Low back pain (Chronic) Hypothyroidism (Chronic) Family history of malignant neoplasm of digestive organs (Chronic) Family history of ischemic heart disease (Chronic) Benign prostatic hyperplasia (Chronic) Allergy to vaccine (Chronic) Constipation (Chronic) Hypertension (Chronic) Hay fever (Chronic) Hx of measles (Chronic) History of hernia surgery (Chronic ~2009) Encounter for general adult medical examination with abnormal findings (Chronic) Persistent cough for 3 weeks or longer (Chronic) Upper respiratory infection (Chronic) Urinary retention (Chronic) Maxillary sinusitis, acute (Chronic) Skin cancer (Chronic) Joint pain (Chronic) Collapsed lung (Chronic ~2017) Colon polyps (Chronic) History of colonoscopy (Chronic ~2019) Brain TIA (Chronic) Amaurosis fugax (Chronic) Medicare annual wellness visit, subsequent (Chronic) Hospital discharge follow-up (Chronic) Annual physical exam (Chronic) OAB (overactive bladder) (Chronic) BPH associated with nocturia (Acute) UTI (urinary tract infection) (Acute) Sepsis (Acute) Medical History Allergy to vaccine Amaurosis fugax Annual physical exam Benign prostatic hyperplasia BPH associated with nocturia Brain TIA Chronic obstructive lung disease Collapsed lung (~2018) Colon polyps Constipation Contusion of back Encounter for general adult medical examination with abnormal findings Family history of ischemic heart disease Family history of malignant neoplasm of digestive organs Hay fever Hospital discharge follow-up Hx of measles Hypertension Hypothyroidism Joint pain Low back pain Maxillary sinusitis, acute Medicare annual wellness visit, subsequent Muscle spasm of back OAB (overactive bladder) Other obstructive and reflux uropathy Persistent cough for 3 weeks or longer Pneumothorax Primary spontaneous pneumothorax Sinusitis Sinusitis, acute Skin cancer Upper respiratory infection Urinary retention Surgical History History of colonoscopy (~2019) 08/23/2004, 11/28/2010, 12/20/2013, 01/02/2017 - Dr. Ott History of hernia surgery (~2009) Times 2 History of sinus surgery (~1989) S/P rotator cuff repair (1978) Family History Father Colon cancer Mother Thyroid disease Grandfather Cancer Maternal Family history of ischemic heart disease Maternal Brother Skin cancer Grandmother Stroke Maternal Other Family history of malignant neoplasm of digestive organs Social History marital status: smoking status: Former smoker alcohol intake frequency: 0-2 drinks per day substance use type: does not use MEDS/ALLERGIES Home Medications and Allergies Home Medications Medication Instructions Recorded Confirmed Type fluticasone propionate 50 2 spray intranasal QDAY #15.8 mL 04/21/19 10/30/21 Rx mcg/actuation nasal spray,suspension (Flonase Allergy Relief) aspirin 81 mg chewable tablet 81 mg PO DAILY #30 tabs 10/18/19 10/30/21 Rx cholecalciferol (vitamin D3) 50 50 mcg PO QDAY 11/09/19 10/30/21 History mcg (2,000 unit) capsule becueiunant-eex-ihhootjeg-hrb 2 tab PO QDAY 11/09/19 10/30/21 History 149-hyalur 500 mg-500 mg-66.7 mg tablet (Xypvyqhzjer-Wtepxaxauxu-SGN (with antiox)) multivitamin 1 tab PO QDAY 11/09/19 10/30/21 History albuterol sulfate 90 mcg/actuation 2 puff inhalation Q4-6HP PRN 03/06/20 10/30/21 Rx aerosol inhaler (Ventolin HFA) Shortness Of Breath #18 grams levothyroxine 112 mcg tablet 112 mcg PO QDAY #90 tabs 02/22/21 10/30/21 Rx (Synthroid) atorvastatin 40 mg tablet (Lipitor) 40 mg PO QDAY #90 tabs 05/14/21 10/30/21 Rx tamsulosin 0.4 mg capsule (Flomax) 0.8 mg PO QHS #180 caps 06/27/21 10/30/21 Rx tolterodine 4 mg capsule,extended 4 mg PO Q24H #30 caps 08/22/21 10/30/21 Rx release 24 hr tiotropium bromide 2.5 2 puff inhalation QDAY 90 days #12 10/24/21 10/30/21 Rx mcg/actuation mist for inhalation grams (Spiriva Respimat) Allergies Allergy/AdvReac Type Severity Reaction Status Date / Time Influenza Virus Vaccines AdvReac Intermediate pneumonia Verified 06/27/21 08:59 Pneumococcal Vaccine AdvReac Intermediate Redness of Verified 06/27/21 08:59 Skin tetracycline [TETRACYCLINE] AdvReac Mild SEVERE Verified 06/27/21 08:59 HEARTBURN EXAM Constitutional Vitals: Temp Pulse Resp BP Pulse Ox O2 Del Method 100.4 F H 106 H 32 H 114/62 94 10/30/21 14:47 10/30/21 15:00 10/30/21 15:00 10/30/21 15:00 10/30/21 15:00 10/30/21 10:35 Exam: General: Alert, Awake, No acute Distress Eyes/N/T: EOMI, PERRL, dry MM Head/Neck: neck supple, normocephalic atraumatic CV: Tachycardic but regular, No murmurs, normal s1/s2 Pulm: Mildly diminished b/l, wheezing b/l, no rales Abd: soft, nontender, +BS x4 Ext: no clubbing/cyanosis/edema Neuro: Alert, no focal deficits, moves all extremities, CN 2-12 grossly intact, symmetrical strength b/l upper/lower, sensations intact b/l upper/lower Skin: warm/dry DATA Data Completed and Pending Labs: Labs from last 24 hours 10/30/21 10/30/21 10/30/21 13:25 12:27 11:04 WBC RBC Hgb Hct MCV MCH MCHC RDW Plt Count MPV Immature Gran % (Auto) Neut % (Auto) Lymph % (Auto) Pike % (Auto) Eos % (Auto) Baso % (Auto) Lymph # (Auto) [place]ike # (Auto) Eos # (Auto) Baso # (Auto) Immature Gran # Absolute Neutrophils POC VBG pH 7.40 POC VBG pCO2 at Temp 44.7 POC VBG pO2 29 POC VBG HCO3 27.9 POC VBG Total CO2 29.0 POC Venous O2 Sat 56.0 POC VBG Base Excess 3.0 H VBG Lactic Acid 1.3 Sodium 137 Potassium 4.1 Chloride 100 Carbon Dioxide 25 Anion Gap 12.0 BUN 15 Creatinine 1.1 GFR Calculation 68 Glucose 78 Calcium 9.5 Total Bilirubin 1.0 AST 27 ALT 16 Alkaline Phosphatase 76 Total Protein 6.4 Albumin 3.6 Globulin 2.8 Albumin/Globulin Ratio 1.3 Urine Color Lois Urine Appearance Clear Urine pH 7.5 Ur Specific [place] 1.015 Urine Protein 100 mg/dl A Urine Glucose (UA) Negative Urine Ketones Negative Urine Occult Blood Moderate A Urine Nitrate Positive A Urine Bilirubin Negative Urine Urobilinogen Normal Ur Leukocyte Esterase Small A Urine RBC 27 H Urine WBC > 182 H Ur Squamous Epith Cells 0 Urine Bacteria Many A Hyaline Casts 22 H Urine Mucus Mod A Ur Culture Indicated? yes 10/30/21 11:04 WBC 25.7 H RBC 4.87 Hgb 15.1 Hct 45.1 MCV 92.6 MCH 31.0 MCHC 33.5 RDW 14.4 Plt Count 246 MPV 8.9 Immature Gran % (Auto) 1.9 H Neut % (Auto) 87.1 H Lymph % (Auto) 2.9 L Pike % (Auto) 7.9 Eos % (Auto) 0 Baso % (Auto) 0.2 Lymph # (Auto) 0.75 L [place]ike # (Auto) 2.03 H Eos # (Auto) 0 Baso # (Auto) 0.05 Immature Gran # 0.48 H Absolute Neutrophils 22.39 H POC VBG pH POC VBG pCO2 at Temp POC VBG pO2 POC VBG HCO3 POC VBG Total CO2 POC Venous O2 Sat POC VBG Base Excess VBG Lactic Acid Sodium Potassium Chloride Carbon Dioxide Anion Gap BUN Creatinine GFR Calculation Glucose Calcium Total Bilirubin AST ALT Alkaline Phosphatase Total Protein Albumin Globulin Albumin/Globulin Ratio Urine Color Urine Appearance Urine pH Ur Specific [place] Urine Protein Urine Glucose (UA) Urine Ketones Urine Occult Blood Urine Nitrate Urine Bilirubin Urine Urobilinogen Ur Leukocyte Esterase Urine RBC Urine WBC Ur Squamous Epith Cells Urine Bacteria Hyaline Casts Urine Mucus Ur Culture Indicated? A/P Narrative A/P Narrative: A: *Severe sepsis w/hypotension responsive to IVF: *UTI with hematuria: *h/o BPH: follows with urology *AECOPD(not on home O2, sats typically rung 88-89% per ): *URI: *AAA: has appt with Dr. Levy on Thursday, has been trying to make appt for some time now. P: -IV Abx pending UC -CT kub -IVF -monitor BP closely, uop -RVP/SC, supp O2 as needed -steroids(wean)/nebs, RT, IS/Acapella -pt/ot -f/u with Dr. Levy on Thursday for scheduled appt -ppx: lovenox Time Spent With Patient Time: Total time spent is greater than 50% in coordination of care (as documented) at patient's floor/unit and/or counseling patient: Total time spent with greater than 50% in coordination of care (as documented) at patient's floor/unit and/or counseling patient:: Greater than 70 minutes
[2021-10-30] MEDS ORDERED: POTASSIUM CHLORIDE 20 MEQ TABLET PO PRN ×2 (16:08)
[2021-10-30] MEDS ORDERED: ONDANSETRON 4 MG/2 ML VIAL IV PRN (16:08)
[2021-10-30] MEDS ORDERED: SENNOSIDES 1 TABLET PO PRN (16:08)
[2021-10-30] MEDS ORDERED: IPRATROPIUM/ALBUTEROL 3 ML AMPUL.NEB NEB PRN (16:08)
[2021-10-30] MEDS ORDERED: POTASSIUM CHLORIDE 40 MEQ in DEXTROSE 5% IN WATER 500 ML IV PRN (16:08)
[2021-10-30] MEDS ORDERED: POLYETHYLENE GLYCOL 3350 17 GM PACKET PO PRN (16:08)
[2021-10-30] MEDS ORDERED: MAGNESIUM SULFATE 2 GM/50 ML BAG IV PRN (16:08)
[2021-10-30] MEDS: methylPREDNISolone SOD SUCC 125 MG/2 ML VIAL IV SCH ×2 (16:18→22:27)
[2021-10-30] MEDS: cefTRIAXone 2 GM in DEXTROSE 5% IN WATER 50 ML IV SCH (17:30)
[2021-10-30] MEDS: AZITHROMYCIN 500 MG in DEXTROSE 5% IN WATER 250 ML IV SCH (17:31)
[2021-10-30] MEDS: IPRATROPIUM/ALBUTEROL 3 ML AMPUL.NEB NEB SCH (18:07)
[2021-10-30] MEDS: 0.9 % SODIUM CHLORIDE 10 ML SYRINGE IV SCH ×4 (18:15→22:28)
--- NOTE | 2021-10-30 18:37 | Cat Scan Report ---
INDICATION: hematuria, uti COMPARISON: Previous chest CT scan dated 07/25/2020 TECHNIQUE: Axial images were obtained through the abdomen and pelvis. Sagittally and coronally reformatted images. FINDINGS: Lung bases:Reticular abnormality at both lung bases. There is mild bronchiectasis. Findings are slightly worse than on previous examination. There is no honeycombing. There is bronchial wall thickening. Findings may be due to chronic bronchitis but pulmonary fibrosis is possible. Liver:Negative to the limits of noncontrast enhanced examination. Liver contour is smooth without evidence for cirrhosis Gallbladder, bilary:No calcified gallstones. No gallbladder wall thickening. No pericholecystic fluid. No dilated bile ducts Spleen:No splenomegaly Pancreas:No pancreatic mass. No peripancreatic abnormality Adrenal glands:Negative Kidneys,ureters,bladder:No detectable renal mass. No hydronephrosis. No obstructing or nonobstructing calculi. No hydroureter. No ureteral calculus. No bladder stone. No detectable bladder mass. Gastrointestinal:No detectable colonic mass. There is no diverticulitis. There is mild infiltration of the perirectal fat. This may indicate proctitis. Clinical correlation is necessary. There is no perirectal or perianal abscess Small bowel is prominent and fluid-filled. Findings are not consistent with mechanical small bowel obstruction. Enteritis is possible Negative stomach and duodenum. No focal abnormality. Appendix: The appendix is negative Vascular:There is extensive atherosclerotic calcification. Infrarenal abdominal aorta measures 2.5 cm in cross-sectional diameter consistent with ectasia Lymphatic:No retroperitoneal adenopathy. No significant mesenteric adenopathy. Mesentery, peritoneum:No free intraperitoneal fluid. No intra-abdominal abscess. No pneumoperitoneum Reproductive:There is enlargement of the prostate. Musculoskeletal:No lumbar compression fractures. No lytic lesions. Sacrum, pelvis, hips are negative. Degenerative disc disease with marked disc narrowing at L2-3. Mild disc narrowing at L3-4 and L4-5. No anterior abdominal wall or inguinal hernia. IMPRESSION: 1. Lung bases are abnormal with reticular abnormality and bronchiectasis. Findings appear slightly worse than on 07/25/2020 2. Mild infiltration of perirectal fat. Proctitis is possible 3. Prominent fluid filled small bowel without transition point or evidence for significant obstruction 4. Enlarged prostate The exam was performed using radiation dose optimization techniques including, but not limited to, automated exposure control, adjustment of the mA and/or kV according to patient size and use of iterative reconstruction technique. Interpreted and Authenticated by: Adrian Garcia 10/30/21
[2021-10-30] MEDS ORDERED: NOREPINEPHRINE BITARTRATE 16 MG in 0.9 % SODIUM CHLORIDE 234 ML IV PRN (19:30)
[2021-10-30] MEDS ORDERED: LACTATED RINGERS 500 ML IV ONE (19:35)
[2021-10-30] MEDS: TAMSULOSIN 0.4 MG CAPSULE PO SCH ×2 (21:08→21:29)
[2021-10-30] MEDS: ACETAMINOPHEN 325 MG TABLET PO PRN (21:08)
[2021-10-31] MEDS: IPRATROPIUM/ALBUTEROL 3 ML AMPUL.NEB NEB SCH ×4 (01:21→18:18)
[2021-10-31] MEDS: ACETAMINOPHEN 325 MG TABLET PO PRN (05:43)
[2021-10-31] MEDS: methylPREDNISolone SOD SUCC 125 MG/2 ML VIAL IV SCH ×2 (05:43→21:07)
[2021-10-31] MEDS: 0.9 % SODIUM CHLORIDE 10 ML SYRINGE IV SCH ×3 (05:46→21:43)
[2021-10-31 06:47] LABS: Hematocrit 40.8 % (40.1-51.0); Hemoglobin 12.9 g/dL (13.7-17.5); Mean Cell Volume 97.4 fL (80.0-100.0); Mean Corpuscular HGB Conc 31.6 g/dL (31.0-36.0); Mean Platelet Volume 8.7 fL (7.4-10.4); Platelet Count 191 K/mcL (140-440); RBC 4.19 M/mcL (4.63-6.08); Red Cell Distribution Width 14.8 % (11.5-14.5); WBC 22.4 K/mcL (4.5-11.0)
[2021-10-31 07:11] LABS: ALT/SGPT 13 U/L (<40); AST/SGOT 21 U/L (<40); Albumin 2.7 gm/dL (3.2-5.2); Albumin/Globulin Ratio 1.1 (1.0-2.3); Alkaline Phosphatase 68 U/L (39-117); Bilirubin,Direct < 0.2 mg/dL (0-0.3); Bilirubin,Total 0.3 mg/dL (0.1-1.0); Blood Urea Nitrogen 17 mg/dL (8-23); Carbon Dioxide 22 mmol/L (22-30); Chloride 108 mmol/L (96-108); Globulin 2.5 gm/dL (2.2-3.7); Glomerular Filtration Rate 95; Glucose 131 mg/dL (70-105); Lactate Dehydrogenase 190 U/L (135-225); Phosphorous 2.7 mg/dL (2.5-4.5); Triglycerides 41 mg/dL (<150); Uric Acid 3.9 mg/dL (2.5-8.0)
[2021-10-31 07:38] LABS: Band Neutrophils % 20 % (0-10); Lymphocytes % 2 % (15-49); Monocytes % (Manual) 2 % (1-12); Platelet Estimate NORMAL (Normal); RBC Morphology NORMAL (Normal); Segmented Neutrophils % 76 % (38-78)
--- NOTE | 2021-10-31 07:52 | Internal Med Progress Note ---
SUBJECTIVE Subjective Patient information: Note initiated : 10/31/21 at 7:44 am Service Date, if different from initiated Date: [] Patient: Nikhil Campbell a 71 y/o M admitted on 10/30/21 for Shortness of breath. Chief Complaint: [] Interval history: History of present illness: Mr. Campbell is a 71 year old M Presents the ED with weakness chills headache lightheadedness and some nausea. Patient states he woke up feeling fine yesterday but during the evening started feeling bad with the above symptoms. He also developed a mild worsening of his chronic cough. And has some thick phlegm and has been able to cough but has not build to expectorate entirely. Patient also complains of malodorous urine and dysuria. Is also increased urinary frequency. His said his oxygen saturation was 84% this morning. He typically runs 88-89%, given his COPD. His systolic blood pressure typically runs in the low 100s but in the ER he had systolics in the 80s. He was tachypneic and tachycardic. His T-max in the ER was 100.4. His urine was consistent with infection. Chest x-ray unremarkable. He had a leukocytosis of 25,000. Lactic acid was within normal limits. Rapid COVID was negative. 10/31 Patient still weak and tired but feeling better than yesterday. Patient states cough is improving and shortness of breath is improving. Patient does still have positive orthostatic vital signs but says he is not lightheaded like he was before he came in. Blood cultures are Gram negative bacillus in 3 of 4 bottles. Leukocytosis still quite high but slightly improved and also bandemia present. Urine output initially low when he came to the unit but improved overnight. Review of Systems: denies headache/fever/chills/nausea/vomiting/chest or abdominal pain/diarrhea. Otherwise see above. Constitutional Vitals: Vital Signs Temp Pulse Resp BP Pulse Ox O2 Del Method O2 Flow Rate 98.8 F 69 18 111/85 90 2 10/31/21 04:00 10/31/21 07:30 10/31/21 07:30 10/31/21 06:00 10/31/21 07:30 10/31/21 07:30 10/31/21 06:00 Period Temp Pulse Resp BP Sys/Moffett Pulse Ox O2 Del Method O2 Flow Rate Last 24 Hr 98.1 F-101 F 69-110 16-42 66-114/42-85 85-96 Nasal Cannula- Room Air 0-2 Intake and Output 10/30/21 10/31/21 10/31/21 21:59 05:59 13:59 Intake Total 2660 1120 Output Total 375 950 Balance 2285 170 Weight 74.979 kg 75.886 kg Intake & Output: Intake & Output 10/30/21 10/31/21 10/31/21 21:59 05:59 13:59 Intake Total 2660 1120 Output Total 375 950 Balance 2285 170 Weight 74.979 kg 75.886 kg Intake: IV 2300 1000 Sodium Chloride 0.9% 1,000 ml @ 1000 1000 75 mls/hr IV .[id number] ONE Rx#: [id number] Zithromax 500 mg In Dextrose 5% 250 in Water 250 ml @ 250 mls/hr IV Q24H [facility] Rx#:[id number] Lactated Ringers 500 ml @ Wide 500 Open IV BOLUS ONE Rx#:[id number] Vancomycin 1,500 mg In Sodium 500 Chloride 0.9% 500 ml @ 333.3 mls/hr IV ONCE ONE Rx#: [id number] Rocephin 2 gm In Dextrose 5% in 50 Water 50 ml @ 100 mls/hr IV Q24H [facility] Rx#:[id number] Oral 360 120 Output: Void Amount 375 950 Other: Urine Appearance Cloudy Cloudy Urine Color Bright Yellow Bright Yellow Urine Odor Normal Exam: General: Alert, Awake, No acute Distress Eyes/N/T: EOMI, Head/Neck: neck supple, CV: RRR, No murmurs, Pulm: Minimal bibase rales, no wheezing today, no rales Abd: soft, nontender, +BS x4 Ext: no clubbing/cyanosis/edema Neuro: Alert, no focal deficits, moves all extremities, Skin: warm/dry OBJ DATA Labs CBC & Chem 7: 10/31/21 05:15 10/31/21 05:15 Labs: Abnormal Lab Results 10/31/21 10/31/21 10/30/21 05:15 05:15 13:25 WBC 22.4 H RBC 4.19 L Hgb 12.9 L RDW 14.8 H Immature Gran % (Auto) Neut % (Auto) Lymph % (Auto) Lymph # (Auto) Rogers # (Auto) Band Neutrophils % 20 H Lymphocytes % 2 L Immature Gran # Absolute Neutrophils POC VBG Base Excess Glucose 131 H Calcium 8.0 L Total Protein 5.2 L Albumin 2.7 L Procalcitonin Urine Protein 100 mg/dl A Urine Occult Blood Moderate A Urine Nitrate Positive A Ur Leukocyte Esterase Small A Urine RBC 27 H Urine WBC > 182 H Urine Bacteria Many A Hyaline Casts 22 H Urine Mucus Mod A 10/30/21 10/30/21 10/30/21 12:27 11:05 11:04 WBC 25.7 H RBC Hgb RDW Immature Gran % (Auto) 1.9 H Neut % (Auto) 87.1 H Lymph % (Auto) 2.9 L Lymph # (Auto) 0.75 L Rogers # (Auto) 2.03 H Band Neutrophils % Lymphocytes % Immature Gran # 0.48 H Absolute Neutrophils 22.39 H POC VBG Base Excess 3.0 H Glucose Calcium Total Protein Albumin Procalcitonin 4.33 H Urine Protein Urine Occult Blood Urine Nitrate Ur Leukocyte Esterase Urine RBC Urine WBC Urine Bacteria Hyaline Casts Urine Mucus Meds: Medications Acetaminophen (Acetaminophen 325 Mg Tablet) 650 mg PO Q6HP PRN; Protocol PRN Reason: Per Pain Protocol/Fever > 101 Last Admin: 10/31/21 05:43 Dose: 650 mg Albuterol/Ipratropium (Ipratropium/Albuterol 3 Ml Ampul.Neb) 3 ml NEB Q6HRT DEON Last Admin: 10/31/21 07:30 Dose: 3 ml Albuterol/Ipratropium (Ipratropium/Albuterol 3 Ml Ampul.Neb) 3 ml NEB Q4HP PRN PRN Reason: Shortness Of Breath Aspirin (Aspirin 81 Mg Tab.Chew) 81 mg PO DAILY [facility] Atorvastatin Calcium (Atorvastatin 40 Mg Tablet) 40 mg PO QDAY [facility] Enoxaparin Sodium (Enoxaparin 40 Mg/0.4 Ml Syringe) 40 mg SQ DAILY [facility] Potassium Chloride 40 meq/ (Dextrose) 520 mls @ 130 mls/hr IV UD PRN PRN Reason: Potassium < 3 Magnesium Sulfate (Magnesium Sulfate) 2 gm in 50 mls @ 50 mls/hr IV UD PRN PRN Reason: Magnesium </= 1.6 Ceftriaxone Sodium 2 gm/ (Dextrose) 50 mls @ 100 mls/hr IV Q24H [facility]; Protocol Last Infusion: 10/30/21 18:15 Dose: Infused Azithromycin 500 mg/ Dextrose 250 mls @ 250 mls/hr IV Q24H [facility]; Protocol Stop: 11/01/21 17:59 Last Infusion: 10/30/21 18:50 Dose: Infused Norepinephrine Bitartrate 16 (mg/ Sodium Chloride) 250 mls @ 9.375 mls/hr IV Q24H PRN; Protocol PRN Reason: MAP <65 Levothyroxine Sodium (Levothyroxine Sodium 112 Mcg Tablet) 112 mcg PO QDAY [facility] Methylprednisolone Sodium Succinate (Methylprednisolone Sod Succ 125 Mg/2 Ml Vi al) 62.5 mg IV Q8 [facility] Last Admin: 10/31/21 05:43 Dose: 62.5 mg Ondansetron HCl (Ondansetron 4 Mg/2 Ml Vial) 4 mg IV Q4HP PRN PRN Reason: Nausea And Vomiting Tolterodine 4 Mg Capsule,Extended Release 24hr 1 dose PO Q24H [facility] Last Admin: 10/30/21 21:08 Dose: Not Given Polyethylene Glycol (Polyethylene Glycol 3350 17 Gm Packet) 17 gm PO DAILYP PRN PRN Reason: Constipation Potassium Chloride (Potassium Chloride 20 Meq Tablet) 40 meq PO UD PRN PRN Reason: Potssium is 3-3.5 Potassium Chloride (Potassium Chloride 20 Meq Tablet) 40 meq PO UD PRN PRN Reason: Potassium < 3 Senna (Sennosides 1 Tablet) 2 tab PO DAILYP PRN PRN Reason: Constipation Sodium Chloride (0.9 % Sodium Chloride 10 Ml Syringe) 10 ml IV Q8 [facility] Last Admin: 10/31/21 05:46 Dose: 10 ml Tamsulosin HCl (Tamsulosin 0.4 Mg Capsule) 0.8 mg PO QHS [facility] Last Admin: 10/30/21 21:29 Dose: Not Given A/P Narrative A/P Narrative: A: *Severe sepsis w/hypotension responsive to IVF: improving -Tmax 100.4 -leukocytosis w/Bandemia *Bacteremia(GNB): 2/2 uti *UTI with hematuria: -CT kub no stones/pyelo/mass/abscess *h/o BPH: follows with urology *AECOPD/Bronchiectasis(not on home O2, sats typically rung 88-89% per ): -RVP neg *AAA: has appt with Dr. Levy on Thursday, has been trying to make appt for some time now. P: -IV Abx pending UC/BC -s/p IVF -monitor BP closely, uop -O2 as needed -steroids(wean)/nebs, RT, IS/Acapella -pt/ot -f/u with Dr. Levy on Thursday for scheduled appt -ppx: lovenox Time Spent With Patient Time: Total time spent is greater than 50% in coordination of care (as documented) at patient's floor/unit and/or counseling patient: Total time spent with greater than 50% in coordination of care (as documented) at patient's floor/unit and/or counseling patient:: 35 - 50 minutes QUALITY VTE Deep Vein Thrombosis/Pulmonary Embolism Present on Admission: No
[2021-10-31] MEDS: ATORVASTATIN 40 MG TABLET PO SCH (08:14)
[2021-10-31] MEDS: ENOXAPARIN 40 MG/0.4 ML SYRINGE SQ SCH (08:14)
[2021-10-31] MEDS: ASPIRIN 81 MG TAB.CHEW PO SCH (08:14)
[2021-10-31] MEDS: LEVOTHYROXINE SODIUM 112 MCG TABLET PO SCH (08:14)
[2021-10-31] MEDS: metroNIDAZOLE 500 MG/100 ML BAG IV SCH ×3 (08:17→21:43)
[2021-10-31] MEDS ORDERED: 0.9 % SODIUM CHLORIDE 1,000 ML IV ONE (08:18)
[2021-10-31] MEDS: AZITHROMYCIN 500 MG in DEXTROSE 5% IN WATER 250 ML IV SCH (09:39)
[2021-10-31] MEDS ORDERED: LIDOCAINE 2% URO-JET 10 ML JEL.PF.APP UR SCH (09:55)
[2021-10-31] MEDS ORDERED: ALBUMIN HUMAN 25 GM/100 ML BAG IV SCH (12:50)
[2021-10-31] MEDS ORDERED: LACTATED RINGERS 250 ML IV ONE (12:57)
[2021-10-31] MEDS: cefTRIAXone 2 GM in DEXTROSE 5% IN WATER 50 ML IV SCH (16:36)
[2021-10-31] MEDS: TAMSULOSIN 0.4 MG CAPSULE PO SCH (21:07)
[2021-10-31] MEDS: MELATONIN 3 MG TABLET PO SCH (21:07)
[2021-11-01] MEDS: IPRATROPIUM/ALBUTEROL 3 ML AMPUL.NEB NEB SCH ×4 (00:42→16:28)
[2021-11-01] MEDS: 0.9 % SODIUM CHLORIDE 10 ML SYRINGE IV SCH ×3 (05:18→21:17)
[2021-11-01] MEDS: metroNIDAZOLE 500 MG/100 ML BAG IV SCH ×3 (05:18→21:17)
[2021-11-01 06:44] LABS: Hematocrit 36.6 % (40.1-51.0); Hemoglobin 12.2 g/dL (13.7-17.5); Mean Cell Volume 92.7 fL (80.0-100.0); Mean Corpuscular HGB Conc 33.3 g/dL (31.0-36.0); Mean Platelet Volume 8.9 fL (7.4-10.4); Platelet Count 196 K/mcL (140-440); RBC 3.95 M/mcL (4.63-6.08); Red Cell Distribution Width 14.7 % (11.5-14.5)
[2021-11-01 07:05] LABS: ALT/SGPT 15 U/L (<40); AST/SGOT 18 U/L (<40); Albumin 2.8 gm/dL (3.2-5.2); Albumin/Globulin Ratio 1.2 (1.0-2.3); Alkaline Phosphatase 59 U/L (39-117); Bilirubin,Direct < 0.2 mg/dL (0-0.3); Bilirubin,Total 0.2 mg/dL (0.1-1.0); Blood Urea Nitrogen 19 mg/dL (8-23); Calcium 8.3 mg/dL (8.6-10.4); Carbon Dioxide 25 mmol/L (22-30); Chloride 108 mmol/L (96-108); Globulin 2.3 gm/dL (2.2-3.7); Glomerular Filtration Rate 95; Glucose 155 mg/dL (70-105); Lactate Dehydrogenase 129 U/L (135-225); Triglycerides 34 mg/dL (<150); Uric Acid 4.1 mg/dL (2.5-8.0)
[2021-11-01 08:09] LABS: Anisocytosis RARE (None Seen); Band Neutrophils % 7 % (0-10); Lymphocytes % 1 % (15-49); Monocytes % (Manual) 3 % (1-12); Platelet Estimate NORMAL (Normal); RBC Morphology ABNORMAL (Normal); Segmented Neutrophils % 89 % (38-78)
[2021-11-01] MEDS ORDERED: PHOSPHORUS 250 MG TABLET PO ONE (08:28)
--- NOTE | 2021-11-01 08:29 | Internal Med Progress Note ---
SUBJECTIVE Subjective Patient information: Note initiated : 11/01/21 at 8:26 am Service Date, if different from initiated Date: [] Patient: Nikhil Campbell a 71 y/o M admitted on 10/30/21 for Shortness of breath. Chief Complaint: [] Interval history: History of present illness: Mr. Campbell is a 71 year old M Presents the ED with weakness chills headache lightheadedness and some nausea. Patient states he woke up feeling fine yesterday but during the evening started feeling bad with the above symptoms. He also developed a mild worsening of his chronic cough. And has some thick phlegm and has been able to cough but has not build to expectorate entirely. Patient also complains of malodorous urine and dysuria. Is also increased urinary frequency. His said his oxygen saturation was 84% this morning. He typically runs 88-89%, given his COPD. His systolic blood pressure typically runs in the low 100s but in the ER he had systolics in the 80s. He was tachypneic and tachycardic. His T-max in the ER was 100.4. His urine was consistent with infection. Chest x-ray unremarkable. He had a leukocytosis of 25,000. Lactic acid was within normal limits. Rapid COVID was negative. 10/31 Patient still weak and tired but feeling better than yesterday. Patient states cough is improving and shortness of breath is improving. Patient does still have positive orthostatic vital signs but says he is not lightheaded like he was before he came in. Blood cultures are Gram negative bacillus in 3 of 4 bottles. Leukocytosis still quite high but slightly improved and also bandemia present. Urine output initially low when he came to the unit but improved overnight. 11/01 Patient continues to feel better. Sitting up in chair eating breakfast. Occasional cough but nothing significant and no abnormal shortness of breath. Room air while awake and needs some O2 supplementation while sleeping. Afebrile overnight. Awaiting final blood cultures. Review of Systems: denies headache/fever/chills/nausea/vomiting/chest or abdominal pain/diarrhea. Otherwise see above. Constitutional Vitals: Vital Signs Temp Pulse Resp BP Pulse Ox O2 Del Method O2 Flow Rate 97.2 F 81 16 93/65 92 2 11/01/21 07:47 11/01/21 07:54 11/01/21 07:54 08/12/22 07:47 11/01/21 07:54 11/01/21 07:54 11/01/21 04:01 Period Temp Pulse Resp BP Sys/[place] Pulse Ox O2 Del Method O2 Flow Rate Last 24 Hr 97.0 F-98.1 F 65-91 12-27 77-110/56-78 91-97 Nasal Cannula- Room Air 2-2 Intake and Output 10/31/21 11/01/21 11/01/21 21:59 05:59 13:59 Intake Total 270 1100 100 Output Total 890 625 110 Balance -620 475 -10 Weight 75.614 kg Intake & Output: Intake & Output 10/31/21 11/01/21 11/01/21 21:59 05:59 13:59 Intake Total 270 1100 100 Output Total 890 625 110 Balance -620 475 -10 Weight 75.614 kg Intake: IV 150 1100 100 Sodium Chloride 0.9% 1,000 ml @ 1000 75 mls/hr IV .[id number] Rx#: [id number] Rocephin 2 gm In Dextrose 5% in 50 Water 50 ml @ 100 mls/hr IV Q24H [facility] Rx#:[id number] Oral 120 Output: Urine Catheter Amount 890 625 110 Other: Meal Dinner Percent of Meal Consumed 100% Feeding Ability Independent Urine Appearance Clear Clear Clear Urine Color Pale Light Lois Dark Yellow Stool Size Large Stool Consistency Normal for Patient # Bowel Movements 1 Exam: General: Alert, Awake, No acute Distress Eyes/N/T: EOMI, Head/Neck: neck supple, CV: RRR, No murmurs, Pulm: Minimal bibase rales, no wheezing today, no rales Abd: soft, nontender, +BS x4 Ext: no clubbing/cyanosis/edema Neuro: Alert, no focal deficits, moves all extremities, Skin: warm/dry OBJ DATA Labs CBC & Chem 7: 11/01/21 05:34 11/01/21 05:42 Labs: Abnormal Lab Results 11/01/21 11/01/21 11/01/21 05:42 05:34 05:34 WBC 20.0 H RBC 3.95 L Hgb 12.2 L Hct 36.6 L RDW 14.7 H Immature Gran % (Auto) Neut % (Auto) Lymph % (Auto) Lymph # (Auto) [place] # (Auto) Seg Neutrophils % 89 H Band Neutrophils % Lymphocytes % 1 L Immature Gran # Absolute Neutrophils RBC Morphology Abnormal A Anisocytosis Rare A POC VBG Base Excess Anion Gap 7.0 L Glucose 155 H Calcium 8.3 L Phosphorus 2.0 L Lactate Dehydrogenase 129 L Total Protein 5.1 L Albumin 2.8 L Procalcitonin 2.11 H Urine Protein Urine Occult Blood Urine Nitrate Ur Leukocyte Esterase Urine RBC Urine WBC Urine Bacteria Hyaline Casts Urine Mucus 10/31/21 10/31/21 10/31/21 05:15 05:15 05:15 WBC 22.4 H RBC 4.19 L Hgb 12.9 L Hct RDW 14.8 H Immature Gran % (Auto) Neut % (Auto) Lymph % (Auto) Lymph # (Auto) [place] # (Auto) Seg Neutrophils % Band Neutrophils % 20 H Lymphocytes % 2 L Immature Gran # Absolute Neutrophils RBC Morphology Anisocytosis POC VBG Base Excess Anion Gap Glucose 131 H Calcium 8.0 L Phosphorus Lactate Dehydrogenase Total Protein 5.2 L Albumin 2.7 L Procalcitonin 2.90 H Urine Protein Urine Occult Blood Urine Nitrate Ur Leukocyte Esterase Urine RBC Urine WBC Urine Bacteria Hyaline Casts Urine Mucus 10/30/21 10/30/21 10/30/21 13:25 12:27 11:05 WBC RBC Hgb Hct RDW Immature Gran % (Auto) Neut % (Auto) Lymph % (Auto) Lymph # (Auto) [place] # (Auto) Seg Neutrophils % Band Neutrophils % Lymphocytes % Immature Gran # Absolute Neutrophils RBC Morphology Anisocytosis POC VBG Base Excess 3.0 H Anion Gap Glucose Calcium Phosphorus Lactate Dehydrogenase Total Protein Albumin Procalcitonin 4.33 H Urine Protein 100 mg/dl A Urine Occult Blood Moderate A Urine Nitrate Positive A Ur Leukocyte Esterase Small A Urine RBC 27 H Urine WBC > 182 H Urine Bacteria Many A Hyaline Casts 22 H Urine Mucus Mod A 10/30/21 11:04 WBC 25.7 H RBC Hgb Hct RDW Immature Gran % (Auto) 1.9 H Neut % (Auto) 87.1 H Lymph % (Auto) 2.9 L Lymph # (Auto) 0.75 L [place] # (Auto) 2.03 H Seg Neutrophils % Band Neutrophils % Lymphocytes % Immature Gran # 0.48 H Absolute Neutrophils 22.39 H RBC Morphology Anisocytosis POC VBG Base Excess Anion Gap Glucose Calcium Phosphorus Lactate Dehydrogenase Total Protein Albumin Procalcitonin Urine Protein Urine Occult Blood Urine Nitrate Ur Leukocyte Esterase Urine RBC Urine WBC Urine Bacteria Hyaline Casts Urine Mucus Meds: Medications Acetaminophen (Acetaminophen 325 Mg Tablet) 650 mg PO Q6HP PRN; Protocol PRN Reason: Per Pain Protocol/Fever > 101 Last Admin: 10/31/21 05:43 Dose: 650 mg Albuterol/Ipratropium (Ipratropium/Albuterol 3 Ml Ampul.Neb) 3 ml NEB Q6HRT DEON Last Admin: 11/01/21 07:54 Dose: 3 ml Albuterol/Ipratropium (Ipratropium/Albuterol 3 Ml Ampul.Neb) 3 ml NEB Q4HP PRN PRN Reason: Shortness Of Breath Aspirin (Aspirin 81 Mg Tab.Chew) 81 mg PO DAILY [facility] Last Admin: 10/31/21 08:14 Dose: 81 mg Atorvastatin Calcium (Atorvastatin 40 Mg Tablet) 40 mg PO QDAY [facility] Last Admin: 10/31/21 08:14 Dose: 40 mg Enoxaparin Sodium (Enoxaparin 40 Mg/0.4 Ml Syringe) 40 mg SQ DAILY [facility] Last Admin: 10/31/21 08:14 Dose: 40 mg Potassium Chloride 40 meq/ (Dextrose) 520 mls @ 130 mls/hr IV UD PRN PRN Reason: Potassium < 3 Magnesium Sulfate (Magnesium Sulfate) 2 gm in 50 mls @ 50 mls/hr IV UD PRN PRN Reason: Magnesium </= 1.6 Last Infusion: 10/31/21 09:15 Dose: Infused Ceftriaxone Sodium 2 gm/ (Dextrose) 50 mls @ 100 mls/hr IV Q24H [facility]; Protocol Last Infusion: 10/31/21 17:10 Dose: Infused Azithromycin 500 mg/ Dextrose 250 mls @ 250 mls/hr IV Q24H DEON; Protocol Stop: 11/01/21 17:59 Last Infusion: 10/31/21 10:40 Dose: Infused Norepinephrine Bitartrate 16 (mg/ Sodium Chloride) 250 mls @ 9.375 mls/hr IV Q24H PRN; Protocol PRN Reason: MAP <65 Metronidazole (Flagyl) 500 mg in 100 mls @ 100 mls/hr IV Q8H [facility]; Protocol Last Infusion: 11/01/21 06:52 Dose: Infused Levothyroxine Sodium (Levothyroxine Sodium 112 Mcg Tablet) 112 mcg PO QDAY [facility] Last Admin: 10/31/21 08:14 Dose: 112 mcg Melatonin (Melatonin 3 Mg Tablet) 3 mg PO QHS [facility] Last Admin: 10/31/21 21:07 Dose: 3 mg Methylprednisolone Sodium Succinate (Methylprednisolone Sod Succ 125 Mg/2 Ml Vial) 62.5 mg IV BID [facility] Last Admin: 10/31/21 21:07 Dose: 62.5 mg Ondansetron HCl (Ondansetron 4 Mg/2 Ml Vial) 4 mg IV Q4HP PRN PRN Reason: Nausea And Vomiting Tolterodine 4 Mg Capsule,Extended Release 24hr 1 dose PO Q24H [facility] Last Admin: 10/31/21 20:08 Dose: Not Given Polyethylene Glycol (Polyethylene Glycol 3350 17 Gm Packet) 17 gm PO DAILYP PRN PRN Reason: Constipation Last Admin: 10/31/21 08:26 Dose: 17 gm Potassium Chloride (Potassium Chloride 20 Meq Tablet) 40 meq PO UD PRN PRN Reason: Potssium is 3-3.5 Potassium Chloride (Potassium Chloride 20 Meq Tablet) 40 meq PO UD PRN PRN Reason: Potassium < 3 Senna (Sennosides 1 Tablet) 2 tab PO DAILYP PRN PRN Reason: Constipation Last Admin: 10/31/21 08:26 Dose: 2 tab Sodium Chloride (0.9 % Sodium Chloride 10 Ml Syringe) 10 ml IV Q8 [facility] Last Admin: 11/01/21 05:18 Dose: 10 ml Tamsulosin HCl (Tamsulosin 0.4 Mg Capsule) 0.8 mg PO QHS [facility] Last Admin: 10/31/21 21:07 Dose: 0.8 mg A/P Narrative A/P Narrative: A: *Severe sepsis w/hypotension responsive to IVF: improving -afebrile o/n -leukocytosis w/Bandemia(improving) *Bacteremia(GNB): 2/2 uti *UTI (GNB)with hematuria: -CT kub no stones/pyelo/mass/abscess *h/o BPH: follows with urology *AECOPD/Bronchiectasis(not on home O2, sats typically rung 88-89% per ): -RVP neg *AAA: has appt with Dr. Levy P: -IV Abx pending UC/BC -s/p IVF -monitor BP closely, uop -O2 as needed -steroids(wean)/nebs, RT, IS/Acapella -pt/ot -f/u with Dr. Levy on Thursday for scheduled appt -ppx: lovenox Time Spent With Patient Time: Total time spent is greater than 50% in coordination of care (as documented) at patient's floor/unit and/or counseling patient: Total time spent with greater than 50% in coordination of care (as documented) at patient's floor/unit and/or counseling patient:: 25 - 35 minutes QUALITY VTE Deep Vein Thrombosis/Pulmonary Embolism Present on Admission: No
[2021-11-01] MEDS: LEVOTHYROXINE SODIUM 112 MCG TABLET PO SCH (08:54)
[2021-11-01] MEDS: ASPIRIN 81 MG TAB.CHEW PO SCH (08:54)
[2021-11-01] MEDS: AZITHROMYCIN 500 MG in DEXTROSE 5% IN WATER 250 ML IV SCH (08:54)
[2021-11-01] MEDS: methylPREDNISolone SOD SUCC 125 MG/2 ML VIAL IV SCH (08:54)
[2021-11-01] MEDS: ATORVASTATIN 40 MG TABLET PO SCH (08:54)
[2021-11-01] MEDS: ENOXAPARIN 40 MG/0.4 ML SYRINGE SQ SCH (08:54)
--- NOTE | 2021-11-01 10:36 | Discharge Summary ---
Discharge Provider Provider IMPORTANT FOLLOW-UP INFORMATION FOR PCP: Patient information: Note initiated : 11/01/21 at 10:34 am Service Date, if different from initiated Date: [] Patient: Nikhil Campbell 71 y/o M admitted on 10/30/21 for Shortness of breath. Chief Complaint: [] Date of admission: 10/30/21 16:07 Discharge date: 11/02/21 Primary care physician: Jae Donis MD Consults: 10/30/21 Consult to Physician [CONS] Stat Comment: Consulting Provider: Lloyd Ivy Reason For Exam: Physician to Consult COURSE Hospital Course Hospital course: History of present illness: Mr. Campbell is a 71 year old M Presents the ED with weakness chills headache lightheadedness and some nausea. Patient states he woke up feeling fine yesterday but during the evening started feeling bad with the above symptoms. He also developed a mild worsening of his chronic cough. And has some thick phlegm and has been able to cough but has not build to expectorate entirely. Patient also complains of malodorous urine and dysuria. Is also increased urinary frequency. His said his oxygen saturation was 84% this morning. He typically runs 88-89%, given his COPD. His systolic blood pressure typically runs in the low 100s but in the ER he had systolics in the 80s. He was tachypneic and tachycardic. His T-max in the ER was 100.4. His urine was consistent with infection. Chest x-ray unremarkable. He had a leukocytosis of 25,000. Lactic acid was within normal limits. Rapid COVID was negative. 10/31 Patient still weak and tired but feeling better than yesterday. Patient states cough is improving and shortness of breath is improving. Patient does still have positive orthostatic vital signs but says he is not lightheaded like he was before he came in. Blood cultures are Gram negative bacillus in 3 of 4 bottles. Leukocytosis still quite high but slightly improved and also bandemia present. Urine output initially low when he came to the unit but improved overnight. 11/01 Patient continues to feel better. Sitting up in chair eating breakfast. Occasional cough but nothing significant and no abnormal shortness of breath. Room air while awake and needs some O2 supplementation while sleeping. Afebrile overnight. Awaiting final blood cultures. 11/02 No overnight event or new complaints. Patient continues to feel better. Leukocytosis gradually improving. No more bandemia. Stable for discharge.Blood and urine cultures both grew E. coli pansensitive. A: *Severe sepsis w/hypotension responsive to IVF: improving -afebrile o/n -leukocytosis w/Bandemia(improving) *Bacteremia(E.coli): 2/2 uti *UTI (e.coli)with hematuria: -CT kub no stones/pyelo/mass/abscess *h/o BPH: follows with urology *AECOPD/Bronchiectasis(not on home O2, sats typically rung 88-89% per ): -RVP neg *AAA: has appt with Dr. Levy P: -Abx -f/u with Dr. Levy Discharge diagnosis: Severe sepsis secondary to E. coli bacteremia and UTI, AECOPD Time Spent with Patient Time attestation: Total time spent providing and/or coordinating discharge services: Time spent: Greater than 30 minutes EXAM Constitutional Vitals: Temp Pulse Resp BP Pulse Ox O2 Del Method O2 Flow Rate 97.2 F 87 20 93/65 91 2 11/01/21 09:10 11/01/21 09:10 11/01/21 09:10 11/01/21 07:47 11/01/21 09:10 11/01/21 08:00 11/01/21 04:01 Discharge Data Data Completed and Pending Labs on day of discharge: Labs from last 24 hours 11/01/21 11/01/21 11/01/21 05:42 05:34 05:34 WBC 20.0 H RBC 3.95 L Hgb 12.2 L Hct 36.6 L MCV 92.7 MCH 30.9 MCHC 33.3 RDW 14.7 H Plt Count 196 MPV 8.9 Seg Neutrophils % 89 H Band Neutrophils % 7 Lymphocytes % 1 L Monocytes % (Manual) 3 Platelet Estimate Normal RBC Morphology Abnormal A Anisocytosis Rare A Sodium 140 Potassium 4.1 Chloride 108 Carbon Dioxide 25 Anion Gap 7.0 L BUN 19 Creatinine 0.7 GFR Calculation 95 Glucose 155 H Uric Acid 4.1 Calcium 8.3 L Phosphorus 2.0 L Magnesium 2.2 Total Bilirubin 0.2 Direct Bilirubin < 0.2 GGT 10 AST 18 ALT 15 Alkaline Phosphatase 59 Lactate Dehydrogenase 129 L Total Protein 5.1 L Albumin 2.8 L Globulin 2.3 Albumin/Globulin Ratio 1.2 Triglycerides 34 Procalcitonin 2.11 H Preliminary micro results at discharge 10/31/21 05:19 Blood Culture - Preliminary Blood 10/31/21 05:15 Blood Culture - Preliminary Blood 10/30/21 11:34 Blood Culture - Preliminary Blood Gram negative bacillus 10/30/21 11:26 Blood Culture - Preliminary Blood Gram negative bacillus Discharge Plan Patient/Caregiver Discharge Instructions Activity: increase activity as tolerated Diet: Regular Diet Prescriptions: New ciprofloxacin HCl 500 mg tablet 500 mg PO BID Qty: 10 0RF Continued albuterol sulfate [Ventolin HFA] 90 mcg/actuation HFA aerosol inhaler 2 puff inhalation Q4-6HP PRN (Reason: Shortness Of Breath) Qty: 18 2RF levothyroxine [Synthroid] 112 mcg tablet 112 mcg PO QDAY Qty: 90 1RF atorvastatin [Lipitor] 40 mg tablet 40 mg PO QDAY Qty: 90 1RF tolterodine 4 mg capsule,extended release 24hr 4 mg PO Q24H Qty: 30 6RF Spiriva Respimat 2.5 mcg/actuation mist 2 puff INHALATION QDAY 90 Days Qty: 12 3RF [id number] [[id number] (with antiox)] 500-500-66.7 mg tablet 2 tab PO QDAY multivitamin Tablet 1 tab PO QDAY cholecalciferol (vitamin D3) 50 mcg (2,000 unit) capsule 50 mcg PO QDAY fluticasone propionate [Flonase Allergy Relief] 50 mcg/actuation spray,suspension 2 spray INTRANASAL QDAY Qty: 15.8 0RF Rx Instructions: administer into each nostril aspirin 81 mg Tablet,Chewable 81 mg PO DAILY Qty: 30 0RF tamsulosin [Flomax] 0.4 mg capsule 0.8 mg PO QHS Qty: 180 6RF Follow Up Plan Follow up with: Jae Donis MD [Primary Care Provider] - Patient Disposition: Home, Self-Care Prognosis: Fair Overall status at discharge: patient is progressing back to baseline Discharge Orders: Discharge Order (Routine); Ordered 11/02/21 [facility]/Pulmonary Embolism Present on Admission: No
[2021-11-01] MEDS ORDERED: NEUTRA PHOS 1 PACKET PO ONE (12:00)
[2021-11-01] MEDS: cefTRIAXone 2 GM in DEXTROSE 5% IN WATER 50 ML IV SCH (16:51)
[2021-11-01] MEDS: MELATONIN 3 MG TABLET PO SCH (21:16)
[2021-11-01] MEDS: TAMSULOSIN 0.4 MG CAPSULE PO SCH (21:16)
[2021-11-02] MEDS: IPRATROPIUM/ALBUTEROL 3 ML AMPUL.NEB NEB SCH ×2 (02:17→09:48)
[2021-11-02] MEDS: metroNIDAZOLE 500 MG/100 ML BAG IV SCH (05:38)
[2021-11-02] MEDS: 0.9 % SODIUM CHLORIDE 10 ML SYRINGE IV SCH (05:39)
[2021-11-02 06:49] LABS: Basophils # (Auto) 0.01 K/mcL (0.00-0.30); Basophils % (Auto) 0.1 % (0.0-2.0); Eosinophils # (Auto) 0 K/mcL (0.00-0.70); Eosinophils % (Auto) 0 % (0.0-7.0); Hematocrit 38.4 % (40.1-51.0); Hemoglobin 12.2 g/dL (13.7-17.5); Lymphocytes # (Auto) 0.54 K/mcL (1.50-4.80); Lymphocytes % (Auto) 3.5 % (15.5-49.0); Mean Corpuscular HGB Conc 31.8 g/dL (31.0-36.0); Mean Platelet Volume 9.1 fL (7.4-10.4); Monocytes # (Auto) 0.63 K/mcL (0.10-0.90); Monocytes % (Auto) 4.1 % (1.0-12.0); Neutrophils % (Auto) 91.7 % (38.0-78.0); Platelet Count 206 K/mcL (140-440); RBC 4.04 M/mcL (4.63-6.08); Red Cell Distribution Width 15.2 % (11.5-14.5); WBC 15.5 K/mcL (4.5-11.0)
[2021-11-02 07:21] LABS: ALT/SGPT 30 U/L (<40); AST/SGOT 28 U/L (<40); Albumin 2.6 gm/dL (3.2-5.2); Alkaline Phosphatase 65 U/L (39-117); Bilirubin,Direct < 0.2 mg/dL (0-0.3); Bilirubin,Total 0.2 mg/dL (0.1-1.0); Blood Urea Nitrogen 19 mg/dL (8-23); Calcium 8.7 mg/dL (8.6-10.4); Carbon Dioxide 25 mmol/L (22-30); Chloride 112 mmol/L (96-108); Globulin 2.6 gm/dL (2.2-3.7); Glomerular Filtration Rate 95; Glucose 126 mg/dL (70-105); Lactate Dehydrogenase 162 U/L (135-225); Phosphorous 2.6 mg/dL (2.5-4.5); Triglycerides 34 mg/dL (<150); Uric Acid 4.6 mg/dL (2.5-8.0)
[2021-11-02] MEDS ORDERED: predniSONE 20 MG TABLET PO SCH (08:00)
[2021-11-02] MEDS: LEVOTHYROXINE SODIUM 112 MCG TABLET PO SCH (09:07)
[2021-11-02] MEDS: ENOXAPARIN 40 MG/0.4 ML SYRINGE SQ SCH (09:08)
[2021-11-02] MEDS: ASPIRIN 81 MG TAB.CHEW PO SCH (09:08)
[2021-11-02] MEDS: ATORVASTATIN 40 MG TABLET PO SCH (09:08)
== END 2021-11-02 11:40 | disposition home or self-care (01) | DRG 871 ==
LOC: ED 10:29 → ICU 16:07
PROVIDERS: ADMIT Internal Medicine; ATTEND Internal Medicine

== ENCOUNTER 2022-09-04 07:35 | Inpatient (IN) ==
--- NOTE | 2022-09-04 07:42 | Emergency Department Note ---
HPI General Chief complaint: Cold/Flu Symptoms Stated complaint: headache, runny nose Time Seen by Provider: 09/04/22 07:42 Source: patient and family () Mode of arrival: ambulatory Limitations: no limitations History of Present Illness HPI Narrative: Narrative: 72-year-old male presents to the emergency department accompanied by his because of a low pulse oximetry and productive cough. Patient states that he began having a productive cough of yellow sputum 2 days ago on Thursday. States it is also been associated with a headache of the last 14 days. He states he has a history of getting sinus infections which then became postnasal drips which then led to pneumonia. He denies having a sinus infection today. His states that his pulse ox was 82% on room air last night. He is not normally on oxygen and does not have oxygen at home. states that his oxygen level is normally 90%. Symptoms are constant. Nothing makes it better or worse. Not associated with any trauma or fever. Patient states he has a history of pneumonia and a history of pneumothorax. Has COPD and was hospitalized with sepsis. Related Data Home Medications Medication Instructions Recorded Confirmed cholecalciferol (vitamin D3) 50 50 mcg PO QDAY 11/09/19 09/04/22 mcg (2,000 unit) capsule mipzpmviqfx-ugm-brcblhemn-hrb 2 tab PO QDAY 11/09/19 09/04/22 149-hyalur 500 mg-500 mg-66.7 mg tablet (Xurozkxdpwx-Xgutfgtwvbq-RHW (with antiox)) multivitamin 1 tab PO QDAY 11/09/19 09/04/22 clopidogrel 75 mg tablet 75 mg PO QDAY 12/19/21 09/04/22 saw palmetto 160 mg capsule 320 mg PO QDAY 01/20/22 09/04/22 Previous Rx's Medication Instructions Recorded aspirin 81 mg chewable tablet 81 mg PO DAILY #30 tabs 10/18/19 tiotropium bromide 2.5 2 puff inhalation QDAY 90 days #12 10/24/21 mcg/actuation mist for inhalation grams (Spiriva Respimat) albuterol sulfate 90 mcg/actuation 2 puff inhalation Q4-6HP PRN 12/12/21 aerosol inhaler (Ventolin HFA) Shortness Of Breath #18 grams atorvastatin 40 mg tablet (Lipitor) 40 mg PO QDAY #90 tabs 05/13/22 levothyroxine 125 mcg tablet 125 mcg PO QDAY #90 tabs 05/27/22 tamsulosin 0.4 mg capsule (Flomax) 0.8 mg PO QHS #180 caps 07/22/22 dutasteride 0.5 mg capsule 0.5 mg PO QDAY #30 caps 08/21/22 Allergies Allergy/AdvReac Type Severity Reaction Status Date / Time Influenza Virus Vaccines AdvReac Intermediate pneumonia Verified 09/04/22 07:40 Pneumococcal Vaccine AdvReac Intermediate Redness of Verified 09/04/22 07:40 Skin tetracycline [TETRACYCLINE] AdvReac Mild SEVERE Verified 09/04/22 07:40 HEARTBURN Review of Systems ROS ROS Narrative: Narrative: Constitutional: Denies fever ENT ED: Reports throat pain and rhinorrhea Cardiovascular: Denies chest pain Respiratory: Reports cough Gastrointestinal: Denies nausea or vomiting PFSH Narrative Patient History Narrative: Narrative: Medical/Surgical/Family History All Active Problems (Updated 09/05/22 @ 00:26 by Josh Wallace MD) Muscle spasm of back (Chronic) Contusion of back (Chronic) Sinusitis (Chronic) Pneumothorax (Chronic) Primary spontaneous pneumothorax (Chronic) Chronic obstructive lung disease (Chronic) Sinusitis, acute (Chronic) Other obstructive and reflux uropathy (Chronic) Low back pain (Chronic) Hypothyroidism (Chronic) Family history of malignant neoplasm of digestive organs (Chronic) Family history of ischemic heart disease (Chronic) Benign prostatic hyperplasia (Chronic) Allergy to vaccine (Chronic) Constipation (Chronic) Hypertension (Chronic) Hay fever (Chronic) Hx of measles (Chronic) History of hernia surgery (Chronic ~2009) Encounter for general adult medical examination with abnormal findings (Chronic) Persistent cough for 3 weeks or longer (Chronic) Upper respiratory infection (Chronic) Urinary retention (Chronic) Maxillary sinusitis, acute (Chronic) Skin cancer (Chronic) Joint pain (Chronic) Collapsed lung (Chronic ~2017) Colon polyps (Chronic) History of colonoscopy (Chronic 01/07/22) Brain TIA (Chronic) Amaurosis fugax (Chronic) Medicare annual wellness visit, subsequent (Chronic) Hospital discharge follow-up (Chronic) Annual physical exam (Chronic) OAB (overactive bladder) (Chronic) BPH associated with nocturia (Chronic) UTI (urinary tract infection) (Acute) Sepsis (Acute) Hospital discharge follow-up (Acute) Elevated PSA, between 10 and less than 20 ng/ml (Chronic) Acute anterior epistaxis (Acute) Epistaxis, recurrent (Acute) Acute respiratory failure with hypoxia (Acute) Medical History Allergy to vaccine Amaurosis fugax Annual physical exam Benign prostatic hyperplasia BPH associated with nocturia Brain TIA Chronic obstructive lung disease Collapsed lung (~2017) History of pneumothorax Colon polyps Constipation Contusion of back Encounter for general adult medical examination with abnormal findings Family history of ischemic heart disease Family history of malignant neoplasm of digestive organs Hay fever Hospital discharge follow-up Hx of measles Hypertension Hypothyroidism Joint pain Low back pain Maxillary sinusitis, acute Medicare annual wellness visit, subsequent Muscle spasm of back OAB (overactive bladder) Other obstructive and reflux uropathy Persistent cough for 3 weeks or longer Sent for chest x-ray today Pneumothorax Primary spontaneous pneumothorax Sinusitis Sinusitis, acute Skin cancer Upper respiratory infection Urinary retention Surgical History History of colonoscopy (01/07/22) 08/23/2004, 11/28/2010, 12/20/2013, 01/02/2017, 2019 - Dr. Ott History of hernia surgery (~2009) Times 2 History of sinus surgery (~1989) S/P rotator cuff repair (1978) Family History Father Colon cancer Mother Thyroid disease Grandfather Cancer Maternal Family history of ischemic heart disease Maternal Brother Skin cancer Grandmother Stroke Maternal Other Family history of malignant neoplasm of digestive organs Social History Smoking Status: Former smoker Alcohol Intake Frequency: 0-2 drinks per day Substance Use: does not use Exam Narrative Narrative: Narrative: General Limitations: no limitations General appearance: Present alert and in no apparent distress (On oxygen that maintains him at 90% presently, 2 L.) Head Head: Present atraumatic and normocephalic Eye Eye: Present normal appearance; Absent scleral icterus Neck Neck: Present normal inspection and trachea midline Respiratory Respiratory: Present wheezes; Absent respiratory distress or rales/crackles Cardiovascular Cardiovascular: Present regular rate and normal rhythm Adbominal Abdominal: Present soft; Absent tenderness Neurological Neurological: Present alert and oriented X3 Psychiatric Psychiatric: Present normal affect and normal mood Skin Skin: Present warm (WNL) and dry Course Vital Signs Vital signs: Vital Signs Temperature 97.9 F 09/04/22 07:38 Pulse Rate 86 09/04/22 07:38 Respiratory Rate 20 09/04/22 07:38 Blood Pressure 113/69 09/04/22 07:38 Pulse Oximetry (%) 86 L 09/04/22 07:38 Oxygen Delivery Method Room Air 09/04/22 07:38 Temperature 97.9 F 09/04/22 19:23 Pulse Rate 85 09/04/22 19:23 Respiratory Rate 22 09/04/22 19:23 Blood Pressure 98/59 09/04/22 19:23 Pulse Oximetry (%) 88 L 09/04/22 19:23 Oxygen Delivery Method Nasal Cannula 09/04/22 19:23 Oxygen Flow Rate (L/min) 2.5 09/04/22 19:23 MDM MDM Narrative Medical decision making narrative: Narrative: Elderly male with history of COPD presents with 2 days of productive cough and low oxygenation. Differential diagnosis includes pneumonia, pulmonary embolus, bronchitis, COPD exacerbation, pneumothorax, other. Patient was given a albuterol DuoNeb treatment to address the wheezes and to see if that would improve his oxygenation. At the end of the treatment and subsequently he still required 2 L of O2 to maintain a pulse ox of 90%. Patient was given 60 mg of prednisone to address the underlying COPD and wheezes. Chest x-ray was obtained and read by the radiologist as showing stable emphysema. No pneumothorax no pneumonia seen. D-dimer ordered in consideration of possible PE. This was normal. Hospitalist consulted because of persistent need for oxygenation. Will come down to the ER to evaluate patient. White count normal at 10.1 with a normal hemoglobin of 14.3. 80 neutrophils 7 lymphs 13 monos. D-dimer was normal at 0.3. VBG lactic acid was 0.6, normal sodium normal at 140 with potassium normal at 4.4 and a chloride normal at 100 and a bicarb normal at 28. BUN was mildly elevated at 21 with a creatinine that was normal at 0.9 and a glucose that was normal at 95. Hepatic panel was completely normal. Procalcitonin was normal at 0.08 EKG showed a normal sinus rhythm with a rate of 82. Normal axis normal EKG without any acute ST elevation or ST depression or ischemic changes. Dr. Ivy, the hospitalist, evaluated the patient and admitted him to the hospital for further care. Sepsis Sepsis Identified: No Lab Data 09/04/22 08:30 Labs: Lab Results 09/04/22 09/04/22 09/04/22 Range/Units 08:30 08:30 08:39 WBC 10.1 (4.5-11.0) K/mcL RBC 4.76 (4.63-6.08) M/mcL Hgb 14.3 (13.7-17.5) g/dL Hct 45.1 (40.1-51.0) % POC Hct 46.0 (41-55) MCV 94.7 (80.0-100.0) fL MCH 30.0 (26.0-34.0) pg MCHC 31.7 (31.0-36.0) g/dL RDW 13.9 (11.5-14.5) % Plt Count 161 (140-440) K/mcL MPV 8.8 (8.8-12.5) fL Immature Gran % (Auto) 0.6 H (0.0-0.5) % Neut % (Auto) 79.6 H (38.0-78.0) % Lymph % (Auto) 6.6 L (15.5-49.0) % [place] % (Auto) 12.6 H (1.0-12.0) % Eos % (Auto) 0.4 (0.0-7.0) % Baso % (Auto) 0.2 (0.0-2.0) % Lymph # (Auto) 0.67 L (1.50-4.80) K/mcL [place] # (Auto) 1.27 H (0.10-0.90) K/mcL Eos # (Auto) 0.04 (0.00-0.70) K/mcL Baso # (Auto) 0.02 (0.00-0.30) K/mcL Immature Gran # 0.06 H (0.00-0.05) K/mcl Absolute Neutrophils 8.02 H (1.80-8.00) K/mcL D-Dimer (0.27-0.50) ug/mL VBG Lactic Acid 0.6 (0.5-2.0) mmol/L POC Sodium 140 (133-145) POC Potassium 4.4 (3.3-5.1) POC Chloride 100 (96-108) POC Total CO2 28.0 (22-30) POC Anion Gap 17.0 H (8.0-16.0) POC BUN 21 H (6-20) POC Creatinine 0.9 (0.6-1.2) POC Glucose 95 (70-105) POC WB Ioniz Calcium 1.20 (1.16-1.32) Total Bilirubin 0.7 (0.1-1.0) mg/dL Direct Bilirubin 0.2 (<0.3) mg/dL AST 14 (<40) U/L ALT 11 (<40) U/L Alkaline Phosphatase 66 (39-117) U/L Total Protein 6.1 (5.9-8.4) gm/dL Albumin 3.5 (3.2-5.2) gm/dL Globulin 2.6 (2.2-3.7) gm/dL Procalcitonin (<0.10) ng/mL 09/04/22 09/04/22 Range/Units 10:33 10:37 WBC (4.5-11.0) K/mcL RBC (4.63-6.08) M/mcL Hgb (13.7-17.5) g/dL Hct (40.1-51.0) % POC Hct (41-55) MCV (80.0-100.0) fL MCH (26.0-34.0) pg MCHC (31.0-36.0) g/dL RDW (11.5-14.5) % Plt Count (140-440) K/mcL MPV (8.8-12.5) fL Immature Gran % (Auto) (0.0-0.5) % Neut % (Auto) (38.0-78.0) % Lymph % (Auto) (15.5-49.0) % [place] % (Auto) (1.0-12.0) % Eos % (Auto) (0.0-7.0) % Baso % (Auto) (0.0-2.0) % Lymph # (Auto) (1.50-4.80) K/mcL [place] # (Auto) (0.10-0.90) K/mcL Eos # (Auto) (0.00-0.70) K/mcL Baso # (Auto) (0.00-0.30) K/mcL Immature Gran # (0.00-0.05) K/mcl Absolute Neutrophils (1.80-8.00) K/mcL D-Dimer 0.30 (0.27-0.50) ug/mL VBG Lactic Acid (0.5-2.0) mmol/L POC Sodium (133-145) POC Potassium (3.3-5.1) POC Chloride (96-108) POC Total CO2 (22-30) POC Anion Gap (8.0-16.0) POC BUN (6-20) POC Creatinine (0.6-1.2) POC Glucose (70-105) POC WB Ioniz Calcium (1.16-1.32) Total Bilirubin (0.1-1.0) mg/dL Direct Bilirubin (<0.3) mg/dL AST (<40) U/L ALT (<40) U/L Alkaline Phosphatase (39-117) U/L Total Protein (5.9-8.4) gm/dL Albumin (3.2-5.2) gm/dL Globulin (2.2-3.7) gm/dL Procalcitonin 0.08 (<0.10) ng/mL EKG Data EKG #1: EKG attestation: Yes I reviewed and interpreted this EKG. EKG shows normal: sinus rhythm Rhythm: NSR [place]/QRS: normal Heart block present: 1st Degree QRS morphology: Present normal Interpretation: other (Normal sinus rhythm. First-degree AV block.) Discharge Plan Patient/Caregiver Discharge Instructions Pt seen by ANTENNA MACHINE OPERATOR/PA only: No Clinical Impression: Acute respiratory failure with hypoxia Patient Disposition: Xfer As Inpt ([facility]) Condition: Serious Discharge Date/Time: 09/04/22 13:58
[2022-09-04] MEDS ORDERED: IPRATROPIUM/ALBUTEROL 3 ML AMPUL.NEB NEB ONE (08:17)
[2022-09-04] MEDS ORDERED: predniSONE 20 MG TABLET PO ONE (08:22)
[2022-09-04 08:41] LABS: POC Calcium, Ionized 1.2 (1.16-1.32); POC Creatinine 0.9 (0.6-1.2); POC Potassium 4.4 (3.3-5.1)
[2022-09-04 09:08] LABS: Basophils # (Auto) 0.02 K/mcL (0.00-0.30); Basophils % (Auto) 0.2 % (0.0-2.0); Eosinophils # (Auto) 0.04 K/mcL (0.00-0.70); Eosinophils % (Auto) 0.4 % (0.0-7.0); Hematocrit 45.1 % (40.1-51.0); Hemoglobin 14.3 g/dL (13.7-17.5); Lymphocytes # (Auto) 0.67 K/mcL (1.50-4.80); Lymphocytes % (Auto) 6.6 % (15.5-49.0); Mean Cell Volume 94.7 fL (80.0-100.0); Mean Corpuscular HGB Conc 31.7 g/dL (31.0-36.0); Mean Platelet Volume 8.8 fL (8.8-12.5); Monocytes # (Auto) 1.27 K/mcL (0.10-0.90); Monocytes % (Auto) 12.6 % (1.0-12.0); Neutrophils % (Auto) 79.6 % (38.0-78.0); Platelet Count 161 K/mcL (140-440); RBC 4.76 M/mcL (4.63-6.08); Red Cell Distribution Width 13.9 % (11.5-14.5); WBC 10.1 K/mcL (4.5-11.0)
--- NOTE | 2022-09-04 09:33 | XRay Report ---
CLINICAL INFORMATION: cough, hypoxia. hx pn COMPARISON: 10/30/2021 FINDINGS: Heart size, mediastinum and pulmonary vessels are unremarkable. Emphysematous changes are stable. There are no infiltrates or new pulmonary abnormalities. Pleural spaces are normal. IMPRESSION: Stable emphysema Interpreted and Authenticated by: Adrian Kaba 09/04/22
[2022-09-04 09:39] LABS: ALT/SGPT 11 U/L (<40); AST/SGOT 14 U/L (<40); Albumin 3.5 gm/dL (3.2-5.2); Alkaline Phosphatase 66 U/L (39-117); Bilirubin,Direct 0.2 mg/dL (<0.3); Bilirubin,Total 0.7 mg/dL (0.1-1.0); Globulin 2.6 gm/dL (2.2-3.7)
--- NOTE | 2022-09-04 10:36 | Internal Med History&Physical ---
HPI History of Present Illness Patient information: Note initiated : 09/04/22 at 10:30 am Service Date, if different from initiated Date: [] Patient: Nikhil Campbell a 72 y/o M admitted on for headache, runny nose. Chief Complaint: [] History of present illness: Mr. Campbell is a 72 year old M Presents the ED with headache weakness cough shortness of breath especially with exertion. Patient had recent travels [place] on Thursday but did not notice anybody sick around them. Thursday started developing a productive cough of thick yellow sputum and over the next day became progressively weak and with continued cough. Had shortness of breath with exertion and his noticed him to be labored occasionally even at rest. States he is always wheezes are to tell if it is worse. Has had rhinorrhea as well. In the ED was had sats in the mid 80s on room air. Patient states he is typically 90 to 92% on room air. In the ED started on steroids and given nebulizers. Chest x-ray showed emphysema but no acute infiltrate. Patient started on supplemental oxygen. Review of Systems: Pertinent positives as above. Denies fever/chills/nausea/vomiting/chest or abdominal pain/diarrhea. Remaining 10 point review of system reviewed negative PHYSICAL EXAM General: Alert, Awake, No acute Distress Eyes/N/T: EOMI, no scleral icterus, PERRL, Head/Neck: neck supple, full ROM, normocephalic atraumatic CV: RRR, No murmurs, normal s1/s2 Pulm: Moderate wheezing b/l, prolonged expiratory phase, Abd: soft, nontender, +BS x4 Ext: no clubbing/cyanosis/edema, nontender Neuro: Alert, CN 2-12 grossly intact, no focal deficits, moves all extremities, , sensations intact b/l upper/lower Psychiatric: Skin: warm/dry, normal color PFSH PFSH All Active Problems Muscle spasm of back (Chronic) Contusion of back (Chronic) Sinusitis (Chronic) Pneumothorax (Chronic) Primary spontaneous pneumothorax (Chronic) Chronic obstructive lung disease (Chronic) Sinusitis, acute (Chronic) Other obstructive and reflux uropathy (Chronic) Low back pain (Chronic) Hypothyroidism (Chronic) Family history of malignant neoplasm of digestive organs (Chronic) Family history of ischemic heart disease (Chronic) Benign prostatic hyperplasia (Chronic) Allergy to vaccine (Chronic) Constipation (Chronic) Hypertension (Chronic) Hay fever (Chronic) Hx of measles (Chronic) History of hernia surgery (Chronic ~2009) Encounter for general adult medical examination with abnormal findings (Chronic) Persistent cough for 3 weeks or longer (Chronic) Upper respiratory infection (Chronic) Urinary retention (Chronic) Maxillary sinusitis, acute (Chronic) Skin cancer (Chronic) Joint pain (Chronic) Collapsed lung (Chronic ~2018) Colon polyps (Chronic) History of colonoscopy (Chronic 01/07/22) Brain TIA (Chronic) Amaurosis fugax (Chronic) Medicare annual wellness visit, subsequent (Chronic) Hospital discharge follow-up (Chronic) Annual physical exam (Chronic) OAB (overactive bladder) (Chronic) BPH associated with nocturia (Chronic) UTI (urinary tract infection) (Acute) Sepsis (Acute) Hospital discharge follow-up (Acute) Elevated PSA, between 10 and less than 20 ng/ml (Chronic) Acute anterior epistaxis (Acute) Epistaxis, recurrent (Acute) Medical History Allergy to vaccine Amaurosis fugax Annual physical exam Benign prostatic hyperplasia BPH associated with nocturia Brain TIA Chronic obstructive lung disease Collapsed lung (~2018) History of pneumothorax Colon polyps Constipation Contusion of back Encounter for general adult medical examination with abnormal findings Family history of ischemic heart disease Family history of malignant neoplasm of digestive organs Hay fever Hospital discharge follow-up Hx of measles Hypertension Hypothyroidism Joint pain Low back pain Maxillary sinusitis, acute Medicare annual wellness visit, subsequent Muscle spasm of back OAB (overactive bladder) Other obstructive and reflux uropathy Persistent cough for 3 weeks or longer Sent for chest x-ray today Pneumothorax Primary spontaneous pneumothorax Sinusitis Sinusitis, acute Skin cancer Upper respiratory infection Urinary retention Surgical History History of colonoscopy (01/07/22) 08/23/2004, 11/28/2010, 12/20/2013, 01/02/2017, 2019 - Dr. Ott History of hernia surgery (~2009) Times 2 History of sinus surgery (~1989) S/P rotator cuff repair (1978) Family History Father Colon cancer Mother Thyroid disease Grandfather Cancer Maternal Family history of ischemic heart disease Maternal Brother Skin cancer Grandmother Stroke Maternal Other Family history of malignant neoplasm of digestive organs Social History marital status: smoking status: Former smoker alcohol intake frequency: 0-2 drinks per day substance use type: does not use MEDS/ALLERGIES Home Medications and Allergies Home Medications Medication Instructions Recorded Confirmed Type aspirin 81 mg chewable tablet 81 mg PO DAILY #30 tabs 10/18/19 09/04/22 Rx cholecalciferol (vitamin D3) 50 50 mcg PO QDAY 11/09/19 09/04/22 History mcg (2,000 unit) capsule niuzgwaviul-qys-bhgpojguz-hrb 2 tab PO QDAY 11/09/19 09/04/22 History 149-hyalur 500 mg-500 mg-66.7 mg tablet (Djzngidwbws-Vdutjgsflge-FUU (with antiox)) multivitamin 1 tab PO QDAY 11/09/19 09/04/22 History tiotropium bromide 2.5 2 puff inhalation QDAY 90 days #12 10/24/21 09/04/22 Rx mcg/actuation mist for inhalation grams (Spiriva Respimat) albuterol sulfate 90 mcg/actuation 2 puff inhalation Q4-6HP PRN 12/12/21 09/04/22 Rx aerosol inhaler (Ventolin HFA) Shortness Of Breath #18 grams clopidogrel 75 mg tablet 75 mg PO QDAY 12/19/21 09/04/22 History saw palmetto 160 mg capsule 320 mg PO QDAY 01/20/22 09/04/22 History atorvastatin 40 mg tablet (Lipitor) 40 mg PO QDAY #90 tabs 05/13/22 09/04/22 Rx levothyroxine 125 mcg tablet 125 mcg PO QDAY #90 tabs 05/27/22 09/04/22 Rx tamsulosin 0.4 mg capsule (Flomax) 0.8 mg PO QHS #180 caps 07/22/22 09/04/22 Rx dutasteride 0.5 mg capsule 0.5 mg PO QDAY #30 caps 08/21/22 09/04/22 Rx Allergies Allergy/AdvReac Type Severity Reaction Status Date / Time Influenza Virus Vaccines AdvReac Intermediate pneumonia Verified 09/04/22 07:40 Pneumococcal Vaccine AdvReac Intermediate Redness of Verified 09/04/22 07:40 Skin tetracycline [TETRACYCLINE] AdvReac Mild SEVERE Verified 09/04/22 07:40 HEARTBURN EXAM Constitutional Vitals: Temp Pulse Resp BP Pulse Ox O2 Del Method O2 Flow Rate 97.9 F 83 20 111/68 90 Nasal Cannula 2 09/04/22 07:38 09/04/22 10:14 09/04/22 07:38 09/04/22 10:14 09/04/22 10:14 09/04/22 10:14 09/04/22 10:14 DATA Data Completed and Pending Labs: Labs from last 24 hours 09/04/22 09/04/22 09/04/22 08:39 08:30 08:30 WBC 10.1 RBC 4.76 Hgb 14.3 Hct 45.1 POC Hct 46.0 MCV 94.7 MCH 30.0 MCHC 31.7 RDW 13.9 Plt Count 161 MPV 8.8 Immature Gran % (Auto) 0.6 H Neut % (Auto) 79.6 H Lymph % (Auto) 6.6 L [place] % (Auto) 12.6 H Eos % (Auto) 0.4 Baso % (Auto) 0.2 Lymph # (Auto) 0.67 L [place] # (Auto) 1.27 H Eos # (Auto) 0.04 Baso # (Auto) 0.02 Immature Gran # 0.06 H Absolute Neutrophils 8.02 H VBG Lactic Acid 0.6 POC Sodium 140 POC Potassium 4.4 POC Chloride 100 POC Total CO2 28.0 POC Anion Gap 17.0 H POC BUN 21 H POC Creatinine 0.9 POC Glucose 95 POC WB Ioniz Calcium 1.20 Total Bilirubin 0.7 Direct Bilirubin 0.2 AST 14 ALT 11 Alkaline Phosphatase 66 Total Protein 6.1 Albumin 3.5 Globulin 2.6 A/P Narrative A/P Narrative: A: *AECOPD/Bronchiectasis (not on home O2, sats typically 90-92%): *URI: *Acute hypoxic respiratory: 2/2 above *Generalized weakness/deconditioning: *HLD: *Hypothyroidism: Continue levothyroxine *h/o BPH: follows with urology *AAA: follows with Dr. Levy P: -steroids(wean)/nebs including pulmicort -empiric azithromycin -RT, IS/Acapella -RVP/SC/covid/rsv pending -supp O2 as needed and wean as able - -cont asa/statin -pt/ot -ppx: lovenox Time Spent With Patient Time: Total time spent is greater than 50% in coordination of care (as documented) at patient's floor/unit and/or counseling patient: Initial: Total time with patient: 55 - 74 minutes
[2022-09-04] MEDS ORDERED: methylPREDNISolone SOD SUCC 125 MG/2 ML VIAL IV ONE (10:44)
--- NOTE | 2022-09-04 12:02 | EKG ---
[facility] Test Date: 2022-09-04 Pat Name: Nikhil Campbell Department: ED Room: Gender: Male Director Check: YODIT : 1950 Requested By: Josh Wallace Order Number: [id number] Reading MD: Arturo Truong Measurements Intervals [place] Rate: 82 P: 5 NC: 215 QRS: 71 QRSD: 76 T: 69 QT: 354 QTc: 415 Interpretive Statements Sinus rhythm Borderline prolonged NC interval Electronically Signed On 09-04-2022 12:02:18 PDT by Arturo Truong /store/M0/[id number]
[2022-09-04] MEDS ORDERED: ACETAMINOPHEN 325 MG TABLET PO PRN (14:16)
[2022-09-04] MEDS ORDERED: SENNOSIDES 1 TABLET PO PRN (14:16)
[2022-09-04] MEDS ORDERED: ONDANSETRON 4 MG/2 ML VIAL IV PRN (14:16)
[2022-09-04] MEDS ORDERED: POTASSIUM CHLORIDE 40 MEQ in DEXTROSE 5% IN WATER 500 ML IV PRN (14:16)
[2022-09-04] MEDS ORDERED: MAGNESIUM SULFATE 2 GM/50 ML BAG IV PRN (14:16)
[2022-09-04] MEDS ORDERED: IPRATROPIUM/ALBUTEROL 3 ML AMPUL.NEB NEB PRN (14:16)
[2022-09-04] MEDS ORDERED: POTASSIUM CHLORIDE 20 MEQ TABLET PO PRN ×2 (14:16)
[2022-09-04] MEDS ORDERED: methylPREDNISolone SOD SUCC 125 MG/2 ML VIAL IV SCH (14:16)
[2022-09-04] MEDS ORDERED: POLYETHYLENE GLYCOL 3350 17 GM PACKET PO PRN (14:16)
[2022-09-04] MEDS: IPRATROPIUM/ALBUTEROL 3 ML AMPUL.NEB NEB SCH ×2 (14:35→18:33)
[2022-09-04] MEDS: 0.9 % SODIUM CHLORIDE 10 ML SYRINGE IV SCH ×2 (15:27→22:01)
[2022-09-04] MEDS: AZITHROMYCIN 500 MG in DEXTROSE 5% IN WATER 250 ML IV SCH (15:42)
[2022-09-04] MEDS: BUDESONIDE 0.5 MG/2 ML AMPUL.NEB NEB SCH ×2 (18:33→22:58)
[2022-09-04] MEDS: methylPREDNISolone SOD SUCC 125 MG/2 ML VIAL IV SCH (21:59)
[2022-09-04] MEDS: TAMSULOSIN 0.4 MG CAPSULE PO SCH (21:59)
[2022-09-04] MEDS: DOCUSATE SODIUM 100 MG CAPSULE PO SCH (21:59)
[2022-09-05] MEDS: IPRATROPIUM/ALBUTEROL 3 ML AMPUL.NEB NEB SCH ×4 (00:30→19:03)
[2022-09-05] MEDS: 0.9 % SODIUM CHLORIDE 10 ML SYRINGE IV SCH ×3 (05:46→21:19)
[2022-09-05] MEDS: methylPREDNISolone SOD SUCC 125 MG/2 ML VIAL IV SCH ×3 (05:46→21:20)
[2022-09-05] MEDS: BUDESONIDE 0.5 MG/2 ML AMPUL.NEB NEB SCH ×2 (06:51→19:03)
[2022-09-05 06:53] LABS: ALT/SGPT 11 U/L (<40); AST/SGOT 13 U/L (<40); Albumin 3.2 gm/dL (3.2-5.2); Albumin/Globulin Ratio 1.1 (1.0-2.3); Alkaline Phosphatase 64 U/L (39-117); Bilirubin,Direct < 0.2 mg/dL (0-0.3); Bilirubin,Total 0.2 mg/dL (0.1-1.0); Blood Urea Nitrogen 20 mg/dL (8-23); Calcium 8.7 mg/dL (8.6-10.4); Carbon Dioxide 24 mmol/L (22-30); Chloride 103 mmol/L (96-108); Globulin 2.8 gm/dL (2.2-3.7); Glomerular Filtration Rate 90; Glucose 156 mg/dL (70-105); Lactate Dehydrogenase 164 U/L (135-225); Phosphorous 3.4 mg/dL (2.5-4.5); Triglycerides 35 mg/dL (<150); Uric Acid 5.7 mg/dL (2.5-8.0)
[2022-09-05] MEDS: LEVOTHYROXINE 125 MCG TABLET PO SCH (07:06)
--- NOTE | 2022-09-05 08:08 | Internal Med Progress Note ---
SUBJECTIVE Subjective Patient information: Note initiated : 09/05/22 at 8:06 am Service Date, if different from initiated Date: [] Patient: Nikhil Campbell a 72 y/o M admitted on 09/04/22 for Acute Hypoxic Respiratory Failure, COPD. Chief Complaint: [] Interval history: History of present illness: Mr. Campbell is a 72 year old M Presents the ED with headache weakness cough shortness of breath especially with exertion. Patient had recent travels [place] on Thursday but did not notice anybody sick around them. Thursday started developing a productive cough of thick yellow sputum and over the next day became progressively weak and with continued cough. Had shortness of breath with exertion and his noticed him to be labored occasionally even at rest. States he is always wheezes are to tell if it is worse. Has had rhinorrhea as well. In the ED was had sats in the mid 80s on room air. Patient states he is typically 90 to 92% on room air. In the ED started on steroids and given nebulizers. Chest x-ray showed emphysema but no acute infiltrate. Patient started on supplemental oxygen. 09/05 Mediocre sleep. Overall feels better. patient on 2 L nasal cannula. Denies dyspnea on exertion says he has not been up move around yet to tell if he is short of breath. But still requiring oxygen at rest. Does have cough occasionally of productive sputum but could not describe the sputum. Continue steroids scheduled nebulizers and pulmonary toilet. Review of Systems: Pertinent positives as above. Denies fever/chills/nausea/vomiting/chest or abdominal pain/diarrhea. PHYSICAL EXAM General: Alert, Awake, No acute Distress Eyes/N/T: EOMI, no scleral icterus, Head/Neck: neck supple, full ROM, CV: RRR, No murmurs, Pulm: mild rhonchi/wheeze on left, no rales , prolonged expiratory phase, Abd: soft, nontender, +BS x4 Ext: no clubbing/cyanosis/edema, nontender Neuro: Alert, no focal deficits, moves all extremities, , sensations intact b/l upper/lower Psychiatric: Skin: warm/dry, normal color Constitutional Vitals: Vital Signs Temp Pulse Resp BP Pulse Ox O2 Del Method O2 Flow Rate 97.5 F 76 18 101/60 91 Nasal Cannula 2 09/05/22 07:00 09/05/22 07:00 09/05/22 07:00 09/05/22 07:00 09/05/22 07:00 09/05/22 07:00 09/05/22 07:00 Period Temp Pulse Resp BP Sys/Moffett Pulse Ox O2 Del Method O2 Flow Rate Last 24 Hr 97.5 F-98.0 F 70-92 14-24 98-123/59-82 83-93 Nasal Cannula- Room Air 0-2.5 Intake and Output 09/04/22 09/05/22 09/05/22 19:59 03:59 11:59 Intake Total 970 240 Output Total 250 400 325 Balance 720 -160 -325 Weight 74.48 kg Intake & Output: Intake & Output 09/04/22 09/05/22 09/05/22 19:59 03:59 11:59 Intake Total 970 240 Output Total 250 400 325 Balance 720 -160 -325 Weight 74.48 kg Intake: IV 250 Zithromax 500 mg In Dextrose 5% 250 in Water 250 ml @ 250 mls/hr IV Q24H [facility] Rx#:[id number] Oral 720 240 Output: Void Amount 250 400 325 Other: Meal Dinner Percent of Meal Consumed 100% Feeding Ability Independent Urine Appearance Clear Clear Clear Urine Color Bright Yellow Yellow Yellow Urine Odor Normal # Voids 2 OBJ DATA Labs 09/04/22 08:30 09/05/22 05:46 Labs: Abnormal Lab Results 09/05/22 09/04/22 09/04/22 05:46 08:39 08:30 Immature Gran % (Auto) 0.6 H Neut % (Auto) 79.6 H Lymph % (Auto) 6.6 L [place] % (Auto) 12.6 H Lymph # (Auto) 0.67 L [place] # (Auto) 1.27 H Immature Gran # 0.06 H Absolute Neutrophils 8.02 H POC Anion Gap 17.0 H POC BUN 21 H Glucose 156 H Meds: Medications Acetaminophen (Acetaminophen 325 Mg Tablet) 650 mg PO Q6HP PRN; Protocol PRN Reason: Per Pain Protocol/Fever > 101 Albuterol/Ipratropium (Ipratropium/Albuterol 3 Ml Ampul.Neb) 3 ml NEB Q4HP PRN PRN Reason: Shortness Of Breath Albuterol/Ipratropium (Ipratropium/Albuterol 3 Ml Ampul.Neb) 3 ml NEB Q6HRT [facility] Last Admin: 09/05/22 06:51 Dose: 3 ml Aspirin (Aspirin 81 Mg Tab.Chew) 81 mg PO DAILY [facility] Atorvastatin Calcium (Atorvastatin 40 Mg Tablet) 40 mg PO QDAY [facility] Azithromycin (Azithromycin 250 Mg Tablet) 500 mg PO DAILY [facility] Stop: 09/06/22 12:00 Budesonide (Budesonide 0.5 Mg/2 Ml Ampul.Neb) 0.5 mg NEB Q12 [facility] Last Admin: 09/05/22 06:51 Dose: 0.5 mg Docusate Sodium (Docusate Sodium 100 Mg Capsule) 100 mg PO BID [facility] Last Admin: 09/04/22 21:59 Dose: 100 mg Dutasteride (Dutasteride 0.5 Mg Capsule) 0.5 mg PO QDAY [facility] Enoxaparin Sodium (Enoxaparin 40 Mg/0.4 Ml Syringe) 40 mg SQ DAILY [facility] Glucosamine/Chondroitin (Glucosamine/Chondroitin Sulf A 1 Cap Capsule) 2 cap PO DAILY [facility] Potassium Chloride 40 meq/ (Dextrose) 520 mls @ 130 mls/hr IV UD PRN PRN Reason: Potassium < 3 Magnesium Sulfate (Magnesium Sulfate) 2 gm in 50 mls @ 50 mls/hr IV UD PRN PRN Reason: Magnesium </= 1.6 Azithromycin 500 mg/ Dextrose 250 mls @ 250 mls/hr IV Q24H [facility]; Protocol Stop: 09/05/22 13:00 Last Infusion: 09/04/22 16:58 Dose: Infused Levothyroxine Sodium (Levothyroxine 125 Mcg Tablet) 125 mcg PO QAMAC [facility] Last Admin: 09/05/22 07:06 Dose: 125 mcg Methylprednisolone Sodium Succinate (Methylprednisolone Sod Succ 125 Mg/2 Ml Vial) 62.5 mg IV Q8 [facility] Last Admin: 09/05/22 05:46 Dose: 62.5 mg Ondansetron HCl (Ondansetron 4 Mg/2 Ml Vial) 4 mg IV Q4HP PRN PRN Reason: Nausea And Vomiting Polyethylene Glycol (Polyethylene Glycol 3350 17 Gm Packet) 17 gm PO DAILYP PRN PRN Reason: Constipation Potassium Chloride (Potassium Chloride 20 Meq Tablet) 40 meq PO UD PRN PRN Reason: Potssium is 3-3.5 Potassium Chloride (Potassium Chloride 20 Meq Tablet) 40 meq PO UD PRN PRN Reason: Potassium < 3 Senna (Sennosides 1 Tablet) 2 tab PO DAILYP PRN PRN Reason: Constipation Sodium Chloride (0.9 % Sodium Chloride 10 Ml Syringe) 10 ml IV Q8 [facility] Last Admin: 09/05/22 05:46 Dose: 10 ml Tamsulosin HCl (Tamsulosin 0.4 Mg Capsule) 0.8 mg PO QHS [facility] Last Admin: 09/04/22 21:59 Dose: 0.8 mg Vitamin D (Vitamin D3 25 Mcg Tablet) 50 mcg PO DAILY DEON A/P Narrative A/P Narrative: A: *AECOPD/Bronchiectasis (not on home O2, sats typically 90-92%): -covid/flu/rsv, rvp neg *URI: *Acute hypoxic respiratory: 2/2 above -on 2L NC still *Generalized weakness/deconditioning: *HLD: *Hypothyroidism: Continue levothyroxine *h/o BPH: follows with urology *AAA: follows with Dr. Levy P: -steroids(wean)/nebs including pulmicort -empiric azithromycin -RT, IS/Acapella -supp O2 as needed and wean as able -cont asa/statin -pt/ot -ppx: lovenox Time Spent With Patient Time: Total time spent is greater than 50% in coordination of care (as documented) at patient's floor/unit and/or counseling patient: Subsequent: Total time with patient: 50 - 65 Minutes QUALITY Stroke Symptom Onset Unknown: No VTE Deep Vein Thrombosis/Pulmonary Embolism Present on Admission: No
[2022-09-05] MEDS ORDERED: C PO SCH (09:00)
[2022-09-05] MEDS ORDERED: SAW PALMETTO 160 MG PO SCH (09:00)
[2022-09-05] MEDS: GLUCOSAMINE/CHONDROITIN SULF A 1 CAP CAPSULE PO SCH (09:22)
[2022-09-05] MEDS: DOCUSATE SODIUM 100 MG CAPSULE PO SCH ×2 (09:23→21:19)
[2022-09-05] MEDS: AZITHROMYCIN 500 MG in DEXTROSE 5% IN WATER 250 ML IV SCH (09:23)
[2022-09-05] MEDS: ASPIRIN 81 MG TAB.CHEW PO SCH (09:23)
[2022-09-05] MEDS: ATORVASTATIN 40 MG TABLET PO SCH (09:23)
[2022-09-05] MEDS: ENOXAPARIN 40 MG/0.4 ML SYRINGE SQ SCH (09:23)
[2022-09-05] MEDS: DUTASTERIDE 0.5 MG CAPSULE PO SCH (09:23)
[2022-09-05] MEDS: VITAMIN D3 25 MCG TABLET PO SCH (09:23)
--- NOTE | 2022-09-05 10:25 | Discharge Summary ---
Discharge Provider Provider IMPORTANT FOLLOW-UP INFORMATION FOR PCP: Patient information: Note initiated : 09/05/22 at 10:24 am Service Date, if different from initiated Date: [] Patient: Nikhil Campbell a 72 y/o M admitted on 09/04/22 for Acute Hypoxic Respiratory Failure, COPD. Chief Complaint: [] Date of admission: 09/04/22 13:58 Discharge date: 09/07/22 Primary care physician: Jae Donis MD Consults: 09/04/22 Consult to Physician [CONS] Stat Comment: Consulting Provider: Lloyd Ivy Reason For Exam: Physician to Consult COURSE Hospital Course Hospital course: History of present illness: Mr. Campbell is a 72 year old M Presents the ED with headache weakness cough shortness of breath especially with exertion. Patient had recent travels [place] on Thursday but did not notice anybody sick around them. Thursday started developing a productive cough of thick yellow sputum and over the next day became progressively weak and with continued cough. Had shortness of breath with exertion and his noticed him to be labored occasionally even at rest. States he is always wheezes are to tell if it is worse. Has had rhinorrhea as well. In the ED was had sats in the mid 80s on room air. Patient states he is typically 90 to 92% on room air. In the ED started on steroids and given nebulizers. Chest x-ray showed emphysema but no acute infiltrate. Patient started on supplemental oxygen. 09/05 Mediocre sleep. Overall feels better. patient on 2 L nasal cannula. Denies dyspnea on exertion says he has not been up move around yet to tell if he is s hort of breath. But still requiring oxygen at rest. Does have cough occasionally of productive sputum but could not describe the sputum. Continue steroids scheduled nebulizers and pulmonary toilet. 09/06 Patient on room air currently trialing with sats at 90%, borderline. Monitor closely and continue pulmonary toilet and corticosteroids. Patient has occasional productive cough. No shortness of breath at rest. We will ambulate and see how he does. 09/07 Patient on room air while at rest but did require oxygen while ambulating yesterday. We will have home oxygen evaluation by RT this morning I suspect he will need it for ambulation. A: *AECOPD/Bronchiectasis: -covid/flu/rsv, rvp neg -Haemophilus Influneza in sputum cx *URI: *Acute hypoxic respiratory: 2/2 above *Generalized weakness/deconditioning: *HLD: *Hypothyroidism: Continue levothyroxine *h/o BPH: follows with urology *AAA: follows with Dr. Levy P: -steroids(wean) -RT for home O2 Discharge diagnosis: Acute exacerbation COPD bronchiectasis URI acute hypoxic respite failure Secondary discharge diagnosis: Generalized weakness deconditioning of lipidemia hypothyroidism BPH Time Spent with Patient Time attestation: Total time spent providing and/or coordinating discharge services: Time spent: Greater than 30 minutes EXAM Constitutional Vitals: Temp Pulse Resp BP Pulse Ox O2 Del Method O2 Flow Rate 97.5 F 76 18 101/60 91 Nasal Cannula 2 09/05/22 07:00 09/05/22 07:00 09/05/22 08:00 09/05/22 07:00 09/05/22 08:00 09/05/22 08:00 09/05/22 08:00 Discharge Data Data Completed and Pending Labs on day of discharge: Labs from last 24 hours 09/05/22 09/04/22 09/04/22 05:46 10:37 10:33 D-Dimer 0.30 Sodium 137 Potassium 4.1 Chloride 103 Carbon Dioxide 24 Anion Gap 10.0 BUN 20 Creatinine 0.8 GFR Calculation 90 Glucose 156 H Uric Acid 5.7 Calcium 8.7 Phosphorus 3.4 Magnesium 1.8 Total Bilirubin 0.2 Direct Bilirubin < 0.2 GGT 11 AST 13 ALT 11 Alkaline Phosphatase 64 Lactate Dehydrogenase 164 Total Protein 6.0 Albumin 3.2 Globulin 2.8 Albumin/Globulin Ratio 1.1 Triglycerides 35 Procalcitonin 0.08 Preliminary micro results at discharge 09/04/22 08:34 Blood Culture - Preliminary Blood 09/04/22 08:30 Blood Culture - Preliminary Blood Discharge Plan Patient/Caregiver Discharge Instructions Activity: increase activity as tolerated Diet: Regular Diet Activity Restrictions/Additional Instructions: Home oxygen per RT eval. Prescriptions: New prednisone 10 mg tablet 40 mg PO QDAY Qty: 1 0RF Rx Instructions: Take 40mg once daily for 2 days then 20mg daily for 2 days then 10mg daily x2 days then 5mg x2 days and stop amoxicillin-pot clavulanate 875-125 mg Tablet 875 mg PO BIDCC Qty: 6 0RF fluticasone propion-salmeterol [Advair Diskus] 250-50 mcg/dose blister with device 1 inh inhalation BID Qty: 60 0RF Continued Spiriva Respimat 2.5 mcg/actuation mist 2 puff INHALATION QDAY 90 Days Qty: 12 3RF albuterol sulfate [Ventolin HFA] 90 mcg/actuation HFA aerosol inhaler 2 puff inhalation Q4-6HP PRN (Reason: Shortness Of Breath) Qty: 18 2RF atorvastatin [Lipitor] 40 mg tablet 40 mg PO QDAY Qty: 90 1RF levothyroxine 125 mcg tablet 125 mcg PO QDAY Qty: 90 1RF tamsulosin [Flomax] 0.4 mg capsule 0.8 mg PO QHS Qty: 180 1RF dutasteride 0.5 mg capsule 0.5 mg PO QDAY Qty: 30 6RF [id number] [[id number]-[id number]-MCP (with antiox)] 500-500-66.7 mg tablet 2 tab PO QDAY multivitamin Tablet 1 tab PO QDAY cholecalciferol (vitamin D3) 50 mcg (2,000 unit) capsule 50 mcg PO QDAY aspirin 81 mg Tablet,Chewable 81 mg PO DAILY Qty: 30 0RF clopidogrel 75 mg tablet 75 mg PO QDAY saw palmetto 160 mg capsule 320 mg PO QDAY Rx Instructions: give with food (meal/snack) Follow Up Plan Follow up with: Erich Tirado MD [Physician] - (PFT's/COPD evaluation) Jae Donis MD [Primary Care Provider] - Patient Disposition: Home, Self-Care Prognosis: Fair Overall status at discharge: patient is progressing back to baseline Discharge Orders: Discharge Order (Routine); Ordered 09/07/22 Ordered By: Lloyd Ivy [facility] VTE Deep Vein Thrombosis/Pulmonary Embolism Present on Admission: No
[2022-09-05] MEDS: AMOXICILLIN/POTASSIUM CLAV 875 MG TABLET PO SCH (18:42)
[2022-09-05] MEDS: TAMSULOSIN 0.4 MG CAPSULE PO SCH (21:19)
[2022-09-06] MEDS: IPRATROPIUM/ALBUTEROL 3 ML AMPUL.NEB NEB SCH ×4 (00:14→19:21)
[2022-09-06] MEDS: methylPREDNISolone SOD SUCC 125 MG/2 ML VIAL IV SCH (05:22)
[2022-09-06] MEDS: 0.9 % SODIUM CHLORIDE 10 ML SYRINGE IV SCH ×3 (05:22→20:11)
[2022-09-06] MEDS: BUDESONIDE 0.5 MG/2 ML AMPUL.NEB NEB SCH ×2 (07:14→19:21)
[2022-09-06] MEDS: AMOXICILLIN/POTASSIUM CLAV 875 MG TABLET PO SCH ×2 (07:50→16:59)
[2022-09-06] MEDS: LEVOTHYROXINE 125 MCG TABLET PO SCH (07:50)
--- NOTE | 2022-09-06 08:13 | Internal Med Progress Note ---
SUBJECTIVE Subjective Patient information: Note initiated : 09/06/22 at 8:10 am Service Date, if different from initiated Date: [] Patient: Nikhil Campbell a 72 y/o M admitted on 09/04/22 for Acute Hypoxic Respiratory Failure, COPD. Chief Complaint: [] Interval history: History of present illness: Mr. Campbell is a 72 year old M Presents the ED with headache weakness cough shortness of breath especially with exertion. Patient had recent travels [place] on Thursday but did not notice anybody sick around them. Thursday started developing a productive cough of thick yellow sputum and over the next day became progressively weak and with continued cough. Had shortness of breath with exertion and his noticed him to be labored occasionally even at rest. States he is always wheezes are to tell if it is worse. Has had rhinorrhea as well. In the ED was had sats in the mid 80s on room air. Patient states he is typically 90 to 92% on room air. In the ED started on steroids and given nebulizers. Chest x-ray showed emphysema but no acute infiltrate. Patient started on supplemental oxygen. 09/05 Mediocre sleep. Overall feels better. patient on 2 L nasal cannula. Denies dyspnea on exertion says he has not been up move around yet to tell if he is short of breath. But still requiring oxygen at rest. Does have cough occasionally of productive sputum but could not describe the sputum. Continue steroids scheduled nebulizers and pulmonary toilet. 09/06 Patient on room air currently trialing with sats at 90%, borderline. Monitor closely and continue pulmonary toilet and corticosteroids. Patient has occasional productive cough. No shortness of breath at rest. We will ambulate and see how he does. Review of Systems: Pertinent positives as above. Denies fever/chills/nausea/vomiting/chest or abdominal pain/diarrhea. PHYSICAL EXAM General: Alert, Awake, No acute Distress Eyes/N/T: EOMI, no scleral icterus, Head/Neck: neck supple, full ROM, CV: RRR, No murmurs, Pulm: improving mild rhonchi/wheeze on left, no rales , prolonged expiratory phase, Abd: soft, nontender, +BS x4 Ext: no clubbing/cyanosis/edema, nontender Neuro: Alert, no focal deficits, moves all extremities, , sensations intact b/l upper/lower Psychiatric: Skin: warm/dry, normal color Constitutional Vitals: Vital Signs Temp Pulse Resp BP Pulse Ox O2 Del Method O2 Flow Rate 97.7 F 89 16 118/66 90 Room Air 1 09/06/22 03:51 09/06/22 07:19 09/06/22 07:19 09/06/22 03:51 09/06/22 07:19 09/06/22 07:19 09/05/22 19:05 Period Temp Pulse Resp BP Sys/Moffett Pulse Ox O2 Del Method O2 Flow Rate Last 24 Hr 97.6 F-97.8 F 76-89 16-24 111-121/65-72 89-93 Nasal Cannula- Room Air 1-1 Intake and Output 09/05/22 09/06/22 09/06/22 19:59 03:59 11:59 Intake Total 2220 Balance 2220 Weight 75.296 kg Intake & Output: Intake & Output 09/05/22 09/06/22 09/06/22 19:59 03:59 11:59 Intake Total 2220 Balance 2220 Weight 75.296 kg Intake: IV 250 Zithromax 500 mg In Dextrose 5% 250 in Water 250 ml @ 250 mls/hr IV Q24H [facility] Rx#:[id number] Oral 1970 Other: Meal Dinner Percent of Meal Consumed 100% Feeding Ability Independent # Voids 3 2 1 OBJ DATA Labs 09/04/22 08:30 09/05/22 05:46 Labs: Abnormal Lab Results 09/05/22 09/04/22 09/04/22 05:46 08:39 08:30 Immature Gran % (Auto) 0.6 H Neut % (Auto) 79.6 H Lymph % (Auto) 6.6 L [place] % (Auto) 12.6 H Lymph # (Auto) 0.67 L [place] # (Auto) 1.27 H Immature Gran # 0.06 H Absolute Neutrophils 8.02 H POC Anion Gap 17.0 H POC BUN 21 H Glucose 156 H Meds: Medications Acetaminophen (Acetaminophen 325 Mg Tablet) 650 mg PO Q6HP PRN; Protocol PRN Reason: Per Pain Protocol/Fever > 101 Albuterol/Ipratropium (Ipratropium/Albuterol 3 Ml Ampul.Neb) 3 ml NEB Q4HP PRN PRN Reason: Shortness Of Breath Albuterol/Ipratropium (Ipratropium/Albuterol 3 Ml Ampul.Neb) 3 ml NEB Q6HRT [facility] Last Admin: 09/06/22 07:14 Dose: 3 ml Amoxicillin/Clavulanate Potassium (Amoxicillin/Potassium [facility]av 875 Mg [facility]t) [facility] Last Admin: 09/06/22 07:50 Dose: 875 mg Aspirin (Aspirin 81 Mg Tab.Chew) 81 mg PO DAILY [facility] Last Admin: 09/05/22 09:23 Dose: 81 mg Atorvastatin Calcium (Atorvastatin 40 Mg Tablet) 40 mg PO QDAY [facility] Last Admin: 09/05/22 09:23 Dose: 40 mg Azithromycin (Azithromycin 250 Mg Tablet) 500 mg PO DAILY [facility] Stop: 09/06/22 12:00 Budesonide (Budesonide 0.5 Mg/2 Ml Ampul.Neb) 0.5 mg NEB Q12 [facility] Last Admin: 09/06/22 07:14 Dose: 0.5 mg Docusate Sodium (Docusate Sodium 100 Mg Capsule) 100 mg PO BID [facility] Last Admin: 09/05/22 21:19 Dose: 100 mg Dutasteride (Dutasteride 0.5 Mg Capsule) 0.5 mg PO QDAY [facility] Last Admin: 09/05/22 09:23 Dose: 0.5 mg Enoxaparin Sodium (Enoxaparin 40 Mg/0.4 Ml Syringe) 40 mg SQ DAILY [facility] Last Admin: 09/05/22 09:23 Dose: 40 mg Glucosamine/Chondroitin (Glucosamine/Chondroitin Sulf A 1 Cap Capsule) 2 cap PO DAILY [facility] Last Admin: 09/05/22 09:22 Dose: 2 cap Potassium Chloride 40 meq/ (Dextrose) 520 mls @ 130 mls/hr IV UD PRN PRN Reason: Potassium < 3 Magnesium Sulfate (Magnesium Sulfate) 2 gm in 50 mls @ 50 mls/hr IV UD PRN PRN Reason: Magnesium </= 1.6 Levothyroxine Sodium (Levothyroxine 125 Mcg Tablet) 125 mcg PO QAMAC [facility] Last Admin: 09/06/22 07:50 Dose: 125 mcg Methylprednisolone Sodium Succinate (Methylprednisolone Sod Succ 125 Mg/2 Ml Vial) 62.5 mg IV Q8 [facility] Last Admin: 09/06/22 05:22 Dose: 62.5 mg Ondansetron HCl (Ondansetron 4 Mg/2 Ml Vial) 4 mg IV Q4HP PRN PRN Reason: Nausea And Vomiting Polyethylene Glycol (Polyethylene Glycol 3350 17 Gm Packet) 17 gm PO DAILYP PRN PRN Reason: Constipation Potassium Chloride (Potassium Chloride 20 Meq Tablet) 40 meq PO UD PRN PRN Reason: Potssium is 3-3.5 Potassium Chloride (Potassium Chloride 20 Meq Tablet) 40 meq PO UD PRN PRN Reason: Potassium < 3 Senna (Sennosides 1 Tablet) 2 tab PO DAILYP PRN PRN Reason: Constipation Sodium Chloride (0.9 % Sodium Chloride 10 Ml Syringe) 10 ml IV Q8 [facility] Last Admin: 09/06/22 05:22 Dose: 10 ml Tamsulosin HCl (Tamsulosin 0.4 Mg Capsule) 0.8 mg PO QHS [facility] Last Admin: 09/05/22 21:19 Dose: 0.8 mg Vitamin D (Vitamin D3 25 Mcg Tablet) 50 mcg PO DAILY [facility] Last Admin: 09/05/22 09:23 Dose: 50 mcg A/P Narrative A/P Narrative: A: *AECOPD/Bronchiectasis (not on home O2, sats typically 90-92%): -covid/flu/rsv, rvp neg -Haemophilus Influneza in sputum cx *URI: *Acute hypoxic respiratory: 2/2 above -trial on room air this morning *Generalized weakness/deconditioning: *HLD: *Hypothyroidism: Continue levothyroxine *h/o BPH: follows with urology *AAA: follows with Dr. Levy P: -steroids(wean)/nebs including pulmicort -azithromycin/augmentin -RT, IS/Acapella -supp O2 as needed and wean as able -cont asa/statin -pt/ot -ppx: lovenox Time Spent With Patient Time: Total time spent is greater than 50% in coordination of care (as documented) at patient's floor/unit and/or counseling patient: Subsequent: Total time with patient: 35 - 49 minutes QUALITY Stroke Symptom Onset Unknown: No VTE Deep Vein Thrombosis/Pulmonary Embolism Present on Admission: No
[2022-09-06] MEDS: ENOXAPARIN 40 MG/0.4 ML SYRINGE SQ SCH (08:56)
[2022-09-06] MEDS: DOCUSATE SODIUM 100 MG CAPSULE PO SCH ×2 (08:57→20:11)
[2022-09-06] MEDS: GLUCOSAMINE/CHONDROITIN SULF A 1 CAP CAPSULE PO SCH (08:57)
[2022-09-06] MEDS: ATORVASTATIN 40 MG TABLET PO SCH (08:57)
[2022-09-06] MEDS: ASPIRIN 81 MG TAB.CHEW PO SCH (08:57)
[2022-09-06] MEDS ORDERED: AZITHROMYCIN 250 MG TABLET PO SCH (09:00)
[2022-09-06] MEDS: DUTASTERIDE 0.5 MG CAPSULE PO SCH (09:01)
[2022-09-06] MEDS: VITAMIN D3 25 MCG TABLET PO SCH (09:32)
[2022-09-06] MEDS: TAMSULOSIN 0.4 MG CAPSULE PO SCH (20:10)
[2022-09-06] MEDS: methylPREDNISolone SOD SUCC 40 MG/ML VIAL IV SCH (20:10)
[2022-09-06] MEDS ORDERED: methylPREDNISolone SOD SUCC 40 MG/ML VIAL IV SCH (22:00)
[2022-09-07] MEDS: IPRATROPIUM/ALBUTEROL 3 ML AMPUL.NEB NEB SCH ×2 (00:26→08:34)
[2022-09-07] MEDS: 0.9 % SODIUM CHLORIDE 10 ML SYRINGE IV SCH (05:49)
[2022-09-07] MEDS: AMOXICILLIN/POTASSIUM CLAV 875 MG TABLET PO SCH (07:40)
[2022-09-07] MEDS: LEVOTHYROXINE 125 MCG TABLET PO SCH (07:40)
[2022-09-07] MEDS: BUDESONIDE 0.5 MG/2 ML AMPUL.NEB NEB SCH (08:34)
[2022-09-07] MEDS: methylPREDNISolone SOD SUCC 40 MG/ML VIAL IV SCH (09:53)
[2022-09-07] MEDS: ASPIRIN 81 MG TAB.CHEW PO SCH (09:54)
[2022-09-07] MEDS: DOCUSATE SODIUM 100 MG CAPSULE PO SCH (09:54)
[2022-09-07] MEDS: GLUCOSAMINE/CHONDROITIN SULF A 1 CAP CAPSULE PO SCH (09:54)
[2022-09-07] MEDS: ENOXAPARIN 40 MG/0.4 ML SYRINGE SQ SCH (09:54)
[2022-09-07] MEDS: VITAMIN D3 25 MCG TABLET PO SCH (09:54)
[2022-09-07] MEDS: ATORVASTATIN 40 MG TABLET PO SCH (09:55)
[2022-09-07] MEDS: DUTASTERIDE 0.5 MG CAPSULE PO SCH (09:55)
== END 2022-09-07 11:35 | disposition home or self-care (01) | DRG 190 ==
LOC: ED 07:35 → MEDSUR 13:58
PROVIDERS: ADMIT Internal Medicine; ATTEND Internal Medicine